=== PATIENT | female | born 1965 | race Caucasian/White ===

== ENCOUNTER 2020-04-19 18:29 | Emergency (ER) | payer OTHER, SELFPAY ==
--- NOTE | ~2020-04-19 | CT_ITS ---
EXAMINATION: CT abdomen pelvis wo con EXAM DATE: 04/19/2020 19:31 INDICATION: Low abdominal pain. TECHNIQUE: Spiral CT of the abdomen and pelvis was performed without contrast. Axial, coronal and s agittal images were reviewed. The dose-length product (DLP) for this examination was 1259.94 mGy-cm. The exposure was tailored according to patient size (auto mA exposure control), and iterative recon struction (ASIR) was used as additional dose reduction technique. There is no prior study for compar cayetano. FINDINGS: There is hepatic steatosis without suspicious focal lesion identified. Spleen, adrenal glan ds, pancreas are unremarkable. There are gallstones within an otherwise unremarkable gallbladder. N o evidence of obstructive biliary disease. Approximately 5 punctate right calyceal stones. No ureter al stones or obstructive nephropathy. The uterus is anteverted and morphologically normal. There are tubal ligation clips. The bladder is unremarkable. There is no retroperitoneal or pelvic lymphaden opathy. The appendix is normal. The stomach and small bowel are unremarkable. There is mild sigmoid colonic diverticulosis. There is no adjacent inflammatory change to suggest diverticulitis. There is colonic fluid, correlate for diarrhea. No free intraperitoneal gas. The heart is normal in size. There are no pericardial or pleural effusions. The lung bases are unremarkable. There are no osteoblastic or osteolytic lesions identified. IMPRESSION: 1. Colonic fluid, correlate for diarrhea. 2. Mild sigmoid diverticulosis. 3. Hepatic steatosis. 4. Punctate right nephrolithiasis. 5. Cholelithiasis. Reviewed, dictated and finalized at location A.
[2020-04-19 18:33] VITALS: BP 108/65; PULSE 136; RESP 18; TEMP 37; O2SAT 96
[2020-04-19 18:46] VITALS: PULSE 134
--- NOTE | 2020-04-19 18:51 | ECG_ITS ---
Measurements Intervals [place] Rate: 128 P: 8 IA: 159 QRS: -20 QRSD: 93 T: 16 QT: 285 QTc: 416 Interpretive Statements SINUS TACHYCARDIA POOR R WAVE PROGRESSION, CONSIDER ANTERIOR INFARCT INFERIOR INFARCT, AGE INDETERMINATE ABNORMAL ECG Electronically Signed On 04-19-2020 20:09:27 CDT by Kumar Chin D.O.
[2020-04-19 19:06] LABS: Basophils Absolute Auto 0.1 K/mm3 (0.0-0.1); Basophils Percent Auto 0.4 % (0.2-1.2); Hematocrit 40.5 % (37.0-47.0); Immature Granulocyte Absolute 0.17 K/mm3 (0.00-0.031); Immature Granulocyte Percent A 1.1 % (0-0.5); Lymphocytes Absolute Auto 0.92 K/mm3 (0.9-3.2); Lymphocytes Percent Auto 5.8 % (18.3-44.2); Mean Corpuscular HGB Conc 34.6 g/dl (32-36); Mean Corpuscular Hemoglobin 31.3 pg (26-34); Mean Corpuscular Volume 90.4 fl (80-100); Mean Platelet Volume 8.7 fl (7.4-10.4); Monocytes Absolute Auto 1.4 K/mm3 (0.1-0.6); Monocytes Percent Auto 8.8 % (2.6-8.5); Neutrophils Absolute Auto 13.4 K/mm3 (1.3-6.7); Neutrophils Percent Auto 83.9 % (45.5-73.1); Platelet Count Result 340 k/mm3 (150-375); Red Blood Count 4.48 M/mm3 (4.2-5.4); Red Cell Distribution Width 12.4 % (11.5-14.5)
--- NOTE | 2020-04-19 19:11 | ED.GENADULT ---
HPI - General Adult General Chief complaint: Unspecified Stated complaint: constipation Time Seen by Provider: 04/19/20 19:02 History of Present Illness HPI narrative: Patient presents with her for lower abdominal pain, recent constipation, and now watery stools from multiple laxatives. She had a fever of 102 at home today. She denies chills and sweats. Initially she had lower abdominal pain, but now has epigastric pain and nausea. She had 3 days of no stool and so took milk of magnesia and castor oil. Now she is having frequent watery bowel movements, but no stool. 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 She does not smoke drink or do drugs. Surgical history history of C-sections. Related Data Allergies Allergy/AdvReac Type Severity Reaction Status Date / Time No Known Allergies Allergy Verified 04/19/20 18:37 Review of Systems Review of Systems: Narrative: CONSTITUTIONAL: Denies fever, chills, or sweats. EYES: Denies visual changes, redness, or discharge. ENT: Denies rhinorrhea, congestion, sore throat, or otalgia. CARDIOVASCULAR: Denies chest pain, palpitations, or edema. RESPIRATORY: Denies cough or dyspnea. GASTROINTESTINAL: She had abdominal pain, and now has nausea, but no vomiting. GENITOURINARY: Denies dysuria or hematuria. SKIN: Denies rash or itching. MUSCULOSKELETAL: Denies back pain, joint pain, or myalgia. NEUROLOGIC: Denies headache, numbness, or weakness. PSYCHIATRIC: Denies anxiety or depression. All systems reviewed & are unremarkable except as noted in HPI and below PMFSH Surgical History Surgical History (Updated 04/19/20 @ 19:14 by Soila Romo MD) History of Social History Social History (Updated 04/19/20 @ 19:14 by Soila Romo MD) Smoking status: Former smoker Alcohol intake: former Substance use: never Gender identity (if verbalized by the patient): Female Exam Narrative: Exam Narrative: GENERAL: Well-appearing, well-nourished, and in no acute distress. HEAD: Normocephalic, atraumatic. EYES: PERRLA and EOMI. ENT: Nares clear, no rhinorrhea or epistaxis. Mucous membranes dry. NECK: Supple. CHEST: Clear to auscultation. No respiratory distress. HEART: Regular rate and rhythm. No murmur heard. Normal peripheral pulses. ABDOMEN: Soft, nontender, nondistended, normal active bowel sounds. EXTREMITIES: Normal range of motion. No edema. SKIN: Warm, dry, no rash. NEURO: No focal deficits. Alert and oriented x3. PSYCH: Normal mood and affect. Course Reevaluation(s) Reevaluation #1: Went in to explain the CAT scan findings to the patient that she has severe dehydration with the diarrhea. She is as of yet been unable to give us a urine sample but still passing liquid stool. I ordered another bag of saline for her, and will reevaluate. She is unaware of the fact that she is testing positive for diabetes. I will also give her some insulin. Date: 04/19/20 Time: 20:36 Reevaluation #2: Told the patient I thought she had a urinary tract infection and was can treat with ciprofloxacin. She agrees that she had urinary frequency before this terrible diarrhea said. She was gestational diabetes and understands a diabetic diet. Rather than start her on metformin which might cause additional diarrhea, a letter have a trial of diet and exercise, and follow-up with the new physician that I assigned her. Date: 04/19/20 Time: 22:13 Vital Signs Vital signs: Vital Signs Temperature 98.6 F 04/19/20 18:33 Pulse Rate 136 H 04/19/20 18:33 Respiratory Rate 18 04/19/20 18:33 Blood Pressure 108/65 04/19/20 18:33 Pulse Oximetry 96 04/19/20 18:33 Temperature 98.6 F 04/19/20 18:33 Pulse Rate 117 H 04/19/20 21:23 Respiratory Rate 18 04/19/20 21:23 Blood Pressure 126/74 04/19/20 21:23 Pulse Oximetry 97 04/19/20 21:23 Medical Decision Making Medical Records Medical records reviewed: Yes I reviewed the patient's medical records. V
[2020-04-19 19:23] LABS: Alanine Aminotransferase 19 U/L (4-35); Albumin Level 3.9 g/dL (3.5-5.1); Alkaline Phosphatase 161 U/L (38-126); Aspartate Amino Transferase 17 U/L (14-36); Blood Urea Nitrogen 28 mg/dL (7-17); Calcium 8.9 mg/dL (8.4-10.2); Carbon Dioxide 22 mmol/L (22-30); Chloride 93 mmol/L (98-107); Estimated CRCL calculation 35 ml/min; Estimated Glomerular Filt Rate 27; Glucose 431 mg/dL (65-105); Lipase 64 U/L (23-300); Potassium 4.2 mmol/L (3.4-5.0); Sodium 126 mmol/L (137-145)
[2020-04-19] MEDS: FAMOTIDINE 20 MG/2 ML VIAL IV PUSH (19:55)
[2020-04-19] MEDS: SODIUM CHLORIDE 0.9% IV 1,000 ML 999 ML IV CONT ×2 (19:55→20:52)
[2020-04-19] MEDS: ONDANSETRON INJ 4 MG/2 ML VIAL IV PUSH (19:55)
[2020-04-19] MEDS: INSULIN HUMAN REGULAR (*BKC) 100 UNITS/ML 10 UNITS IV PUSH (20:53)
[2020-04-19 21:23] VITALS: BP 126/74; PULSE 117; RESP 18; O2SAT 97
[2020-04-19 22:02] LABS: Add Urine Microscopic? YES; Appearance Urine Cloudy (Clear); Bacteria Urine 2+ /hpf; Bilirubin Urine Negative (Negative); Blood Urine 2+ (Negative); Color Urine Yellow (Yellow); Glucose Urine UA 3+ mg/dL (Negative); Ketones Urine Negative (Negative); Leukocyte Esterase Ur 3+ LEU/UL (Negative); Mucus Urine Rare /lpf; Nitrate Urine Negative (Negative); Protein Urine 3+ mg/dL (Negative); RBC Urine 21-50 /hpf (0-2); Specific Grav Ur 1.012 (1.001-1.035); Squamous Epithelial Cell Urine Occasional /hpf (Few); Urobilinogen Urine Negative mg/dL (<2.0); WBC Urine >75 /hpf
[2020-04-19 22:24] LABS: Glucose Point of Care 261 (65-105)
== END 2020-04-19 22:28 | disposition home or self-care (01) ==
PROVIDERS: Emergency Provider Emergency Medicine
DX: N39.0 Urinary tract infection, site not specified (principal); F55.2 Abuse of laxatives; R19.7 Diarrhea, unspecified; E86.0 Dehydration; K76.0 Fatty (change of) liver, not elsewhere classified; N20.0 Calculus of kidney; K80.20 Calculus of gallbladder without cholecystitis without obstruction; Z87.891 Personal history of nicotine dependence; K57.90 Diverticulosis of intestine, part unspecified, without perforation or abscess without bleeding; R00.0 Tachycardia, unspecified; R94.31 Abnormal electrocardiogram [ECG] [EKG]
CPT/HCPCS: 36415; 74176; 80053; 81001; 83690; 85025; 87077; 87086; 87088; 87186; 93005; 96361; 96374; 96375; 99284; J1815; J2405; J7030

== ENCOUNTER 2020-08-05 14:12 | Emergency (ER) | payer OTHER, SELFPAY ==
[2020-08-05 14:17] VITALS: BP 162/88; PULSE 77; RESP 16; TEMP 36.4; O2SAT 98
--- NOTE | 2020-08-05 14:20 | ED.BACK ---
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 Patient states she has a gradual recurrence of right hip and back pain that is mild, worse with motion, better at rest similar to prior episode a couple years ago, and began just yesterday leaning over. No fever, bowel?bladder symptoms, hematuria, frequency/urgency/dysuria, no prior surgeries [], weakness, but she has numbness of the anterior lateral thigh Related Data Home Medications Medication Instructions Recorded Confirmed ergocalciferol (vitamin D2) 08/05/20 [Vitamin D2] glimepiride mg 08/05/20 losartan 08/05/20 metformin mg 08/05/20 rosuvastatin mg 08/05/20 Allergies Allergy/AdvReac Type Severity Reaction Status Date / Time No Known Allergies Allergy Verified 04/19/20 18:37 Review of Systems Review of Systems: Narrative: General/Constitutional: No weight loss,fever Eyes: N0: Redness,discharge Ears/Nose/Throat: No: Epistaxis,ear discharge Respiratory: Denies: Hemoptysis Gastrointestinal: No Vomiting, Bleeding-rectal Skin: No Lumps, eruption Neurologic: No Focal Weakness,Sz Hematologic: Denies: Petechiae/Purpura Psychiatric: No: Suicida ideationl All Other Systems: Reviewed and Negative PMFSH Surgical History Surgical History (Updated 04/19/20 @ 19:14 by Soila Romo MD) History of Social History Social History (Updated 04/19/20 @ 19:14 by Soila Romo MD) Smoking status: Former smoker Alcohol intake: former Substance use: never Gender identity (if verbalized by the patient): Female Comments At time of signature, agree with nursing past medical, surgical, social and family history. There is no relevant family history pertinent to the presenting complaint Exam Narrative: Exam Narrative: General Appearance: Obese/ well nourished, Conjunctiva clear Mouth/Throat: Normal appearing, Supple Respiratory: Airway patent Abdomen: Soft, no CVAT Musculoskeletal: Normal strength (no footdrop, 5/5 : EH L-FHL, gastroc-AT, no saddle weakness) Spine/Back: Paraspinal muscle tender (with mild decreased range of motion; rightt posterior superior iliac crest) Skin: Normal color Neurological: A&O x3, CN II-XII intact, Normal reflexes (symmetric, 2+ KJ, AJ) Psychiatric: Normal mood Course Vital Signs Vital signs: Vital Signs Temperature 97.6 F 08/05/20 14:17 Pulse Rate 77 08/05/20 14:17 Respiratory Rate 16 08/05/20 14:17 Blood Pressure 162/88 H 08/05/20 14:17 Pulse Oximetry 98 08/05/20 14:17 Temperature 97.6 F 08/05/20 14:17 Pulse Rate 77 08/05/20 14:17 Respiratory Rate 16 08/05/20 14:17 Blood Pressure 162/88 H 08/05/20 14:17 Pulse Oximetry 98 08/05/20 14:17 Discharge Plan Discharge Clinical Impression: Bursitis of hip, right Qualifiers: Hip bursitis location: unspecified Qualified Code(s): M70.71 - Other bursitis of hip, right hip Patient Disposition: Home, Self-Care Condition: Stable Instructions: Hip Bursitis (ED) Prescriptions: New acetaminophen-codeine 120-12 mg/5 mL solution 7.5 ml PO HS PRN (Reason: pain) Qty: 118 RF: 0 prednisone 20 mg tablet 60 mg PO DAILY Qty: 15 RF: 0 tramadol 50 mg tablet 50 mg PO Q6H PRN (Reason: pain) Qty: 15 RF: 1 No Action metformin 500 mg tablet RF: 0 glimepiride 1 mg tablet RF: 0 losartan 25 mg tablet RF: 0 ergocalciferol (vitamin D2) [Vitamin D2] 1,250 mcg (50,000 unit) capsule RF: 0 rosuvastatin 5 mg tablet RF: 0 Follow-up/Referrals: Lucas Garcia MD [Primary Care Provider] - Stand Alone Forms: Work/School Release IP
== END 2020-08-05 14:49 | disposition home or self-care (01) ==
PROVIDERS: Emergency Provider Emergency Medicine; PCP Emergency Medicine
DX: M70.71 Other bursitis of hip, right hip (principal); Z87.891 Personal history of nicotine dependence; E78.00 Pure hypercholesterolemia, unspecified; I10 Essential (primary) hypertension; E11.9 Type 2 diabetes mellitus without complications
CPT/HCPCS: 99213; G0463

== ENCOUNTER → 2020-10-22 12:32 | Outpatient (CLI) | payer OTHER, SELFPAY ==
--- NOTE | ~2020-10-22 | DEXA_ITS ---
Bone Density Report Name: Lana Martinez Age: 55 Sex: Female Ethnicity: White Date of : 1965 Indication: postmenopausal; screening for osteoporosis; height loss; history of glucocorticoids; Referring Provider: COSMO PITTS Study: Bone densitometry was performed. Exam Date: October 22, 2020 Accession number: [id number] Bone Density: Region BMD T-score Z-score Classification AP Spine (L1-L4) 1.271 2.0 3.2 Normal Femoral Neck (Left) 0.838 -0.1 1.0 Normal Total Hip (Left) 1.092 1.2 2.0 Normal Femoral Neck (Right) 0.934 0.8 1.9 Normal Total Hip (Right) 1.152 1.7 2.5 Normal Total Hip Mean 1.122 1.5 2.3 Normal World Health Organization criteria for BMD impression classify patients as: Normal (T-score at or above -1.0), Osteopenia (T-score between -1.0 and -2.5), or Osteoporosis (T-score at or below -2.5). 10-year Fracture Risk: FRAX not reported because: All T-scores for Spine Total, Hip Total, Femoral Neck at or above -1.0 Clinical Information Provided by Patient: Has taken Glucocorticoids Has used the following medications: Vitamin D, Calcium Patient maximum height was 64 Menopause Age: 52 No regular weight bearing exercise Drinks caffeinated beverages Onset of menses at age 10 Number of children 2 Missed period for more than 6 months in a row Impression: The patient has normal bone mass. The patient has risk factors, including: history of glucocorticoid therapy. Discussion: BONE DENSITY IS ABOVE THE MINIMUM DESIRABLE LEVEL AT ALL SKELETAL SITES TESTED. This patient?s bone mineral density is above the minimum desirable level (T-score -1.0 or better) at all sites measured. The patient should follow a healthful lifestyle (good nutrition with adequate calcium and vitamin D, and appropriate weight-bearing exercise). Follow-Up: Consider repeating this study in 5 years or sooner if there is some new clinical indication. Reported by: VERÓNICA on 10/22/2020 1:23:00 PM. Reviewed, dictated and finalized at location [facility]
--- NOTE | ~2020-10-22 | MM_ITS ---
EXAMINATION: MM screening geri BI w berenice HISTORY: Screening TECHNIQUE: Craniocaudal and mediolateral oblique 3-D tomosynthesis images were obtained and synthetic 2-D images were generated. CAD analysis was submitted and interpreted. COMPARISON: No prior mammogram is available for comparison at this institution. BREAST PARENCHYMAL COMPOSITION: There are scattered areas of fibroglandular density. FINDINGS: There are clustered nonspecific calcifications in the upper outer quadrant of the right franny ast. There is focal asymmetry in the upper outer quadrant of the left breast. There are benign bilate ral breast calcifications. IMPRESSION: 1. Nonspecific right breast calcifications and left breast asymmetry. 2. Comparison to a previous outside mammograms recommended. BI-RADS Category 0: Incomplete: Needs additional imaging evaluation. Reviewed, dictated and finalized at location A. E PICKER
== END ==
PROVIDERS: PCP Emergency Medicine; Visit Provider Emergency Medicine
DX: Z12.31 Encounter for screening mammogram for malignant neoplasm of breast (principal); Z78.0 Asymptomatic menopausal state; R92.8 Other abnormal and inconclusive findings on diagnostic imaging of breast
CPT/HCPCS: 77063; 77067; 77080

== ENCOUNTER → 2020-12-23 14:16 | Outpatient (CLI) | payer OTHER, SELFPAY ==
--- NOTE | ~2020-12-23 | MMUS_ITS ---
EXAMINATION: MM diagnostic geri BI w berenice, US breast BI complete HISTORY: Nonspecific right breast calcifications and left breast mammographic asymmetry reported on 01/02/2020 bilateral digital screening mammogram TECHNIQUE: Additional bilateral ML and spot bilateral 3-D tomosynthesis images were performed and syn thetic 2-D images were generated. Magnification views of the right breast. Magnification views of rig ht breast. CAD analysis was submitted and interpreted. High resolution complete bilateral breast ultr asound was performed. COMPARISON: 11/01/2020 bilateral digital screening mammogram FINDINGS: MAMMOGRAPHIC FINDINGS: There are scattered bilateral benign calcifications including some benign grouped microcalcifications as well as benign solitary microcalcifications. No malignant calcifications are evident. There are scattered circumscribed largely subcentimeter nodular densities; bilateral ultrasound exami nation was performed.. ULTRASOUND: Right breast: 12:00 5 cm from nipple: 3.6 mm rounded sonolucency without posterior enhancement; consider ultrasound -guided needle aspiration attempt, with ultrasound-guided biopsy immediately thereafter if aspiration attempt is unsuccessful. 1:00 6 cm from nipple: Superficial subcutaneous 6 x 12 mm hypoechoic solid or complicated cystic lesi on with some through transmission; this has benign features. 3:00 7 cm from nipple: Parallel circumscribed hypoechoic 3 x 6 x 9 mm lesion without internal vascula rity or suspicious shadowing. 6:00 5 cm from nipple: 2 x 3 x 3.7 mm sonolucent lesion with posterior enhancement 8:00 9.5 cm from nipple: There is an approximately 6.5 x 9.4 x 6.7 mm mass with calcifications and as sociated shadowing, corresponding to a benign appearing calcified mammographic lesion, likely a parti ally calcified fibroadenoma. 11:00 5 cm from nipple: Small parallel 2.6 x 4 0.5 mg hypoechoic lesion without through transmission or internal vascularity, likely benign Circumscribed lobular hypoechoic solid approximately 4 x 6.5 x 11 mm lesion without internal vascular ity or suspicious shadowing, likely benign 11:00 3 cm from nipple: 3.9 x 5.6 x 3.9 mm mildly irregular hypoechoic lesion without internal vascul arity but with some posterior shadowing. Ultrasound-guided biopsy is recommended. Left breast: 2:00 8 cm from nipple: 2 x 3.5 mm probable small cyst 3:00 11 cm from nipple: Rounded 2.8 x 3.1 mm hypoechoic lesion 6:00 subareolar area: Bilobed 3 x 6.2 mm sonolucency 9:00 8 cm from nipple: Heavily calcified approximately 8 millimeter lesion corresponding to a benign dense left breast calcification, likely a heavily calcified fibroadenoma 9:00 7 cm from nipple: Parallel circumscribed 5.7 x 5.4 x 13 mm hypoechoic solid lesion without inter nal vascularity or suspicious shadowing IMPRESSION: 1. 3.9 x 5.6 x 3.9 mm mildly irregular hypoechoic lesion with some posterior shadowing at right breas t 11:00 position 3 cm from nipple; ultrasound-guided biopsy is recommended. 2. Recommend attempted ultrasound-guided aspiration and, if unsuccessful, ultrasound-guided biopsy bi opsy of right breast 3.6 mm 12:00 lesion 5 cm from nipple BI-RADS category 4, suspicious findings. Felicity, Mill Roll Rewinder for Dr. Garcia was notified by telephone by Dr. Gonzalez of the findings and the biopsy recommendations on 01/02/2021 at 1558 hours Reviewed, dictated and finalized at location A. AINABILITY EXECUTIVE DIRECTOR IMPRESSION: 1. 3.9 x 5.6 x 3.9 mm mildly irregular hypoechoic lesion with some posterior sh adowing at right breast 11:00 position 3 cm from nipple; ultrasound-guided biop sy is recommended. 2. Recommend attempted ultrasound-guided aspiration and, if unsuccessful, ultra sound-guided biopsy biopsy of right breast 3.
== END ==
PROVIDERS: PCP Emergency Medicine; Visit Provider Emergency Medicine
DX: R92.2 Inconclusive mammogram (principal); R92.8 Other abnormal and inconclusive findings on diagnostic imaging of breast
CPT/HCPCS: 76641; 77062; 77066; G0279

== ENCOUNTER 2021-01-08 09:05 | Outpatient (CLI) | payer OTHER, SELFPAY ==
--- NOTE | ~2021-01-08 | MMUS_ITS ---
EXAMINATION: US breast biopsy RT w image, MM post biopsy invasive RT, US breast cyst asp RT DATE: 01/08/2021 11:03 (accession [id number]), 01/08/2021 10:57 (accession [id number]), 12/16 11:03 (accession [id number]) INDICATION: Right breast cysts of the 12:00 location 5 cm from the nipple and right breast mass at th e 11:00 location 3 cm from the nipple. Ultrasound-guided core biopsy is requested to evaluate for mal ignancy. TECHNIQUE AND FINDINGS: The risks and potential benefits of the procedure were discussed with the patient including bleeding and infection. A time out was performed. The skin of the right breast was prepared and draped in usua l sterile fashion. 1% lidocaine was used for superficial anesthesia. 1% lidocaine with epinephrine wa s used for deep anesthesia. Attention was first directed towards the round anechoic mass at the 12:00 location 5 cm from the nipp le. After local anesthetic was administered, a 20-gauge needle was advanced into the lesion. The lesi on immediately disappeared after the margin was reached, consistent with a cyst. Attention was then t urned towards the mass at the 11:00 location 3 cm from the nipple. A vacuum-assisted biopsy gun needl e was advanced through to the outer edge of the region of interest from a lateral approach utilizing sonographic guidance. A total of three tissue core samples were obtained through the lesion. A tissue marker clip was then placed at the biopsy site. Hemostasis was achieved. A sterile bandage was appli ed. The patient tolerated procedure well and there was no evidence of immediate complication. The patient was given verbal instructions to return to the Emergency Department in the event of severe breast pa in or rapid breast enlargement. A two view right breast mammogram was obtained to document tissue mar ker clip placement. IMPRESSION: 1. Successful ultrasound-guided vacuum-assisted biopsy of right breast mass with tissue marker placem ent. 2. Successful ultrasound-guided right breast cyst aspiration. Reviewed, dictated and finalized at location A. TENANCE TRUCK DRIVER IMPRESSION: 1. Successful ultrasound-guided vacuum-assisted biopsy of right breast mass wit h tissue marker placement. 2. Successful ultrasound-guided right breast cyst aspiration. IMPRESSION: 1. Successful ultrasound-guided vacuum-assisted biopsy of right breast mass wit h tissue marker placement. 2. Successful ultrasound-guided right breast cyst aspiration.
== END 2021-01-08 09:06 | disposition home or self-care (01) ==
PROVIDERS: PCP Emergency Medicine; Visit Provider Emergency Medicine
DX: N60.31 Fibrosclerosis of right breast (principal); D24.1 Benign neoplasm of right breast
CPT/HCPCS: 19000; 19083; 88305; 88342

== ENCOUNTER → 2021-02-27 10:28 | Outpatient (CLI) | payer OTHER, SELFPAY ==
--- NOTE | ~2021-02-27 | US_ITS ---
EXAMINATION: US soft tissue abdomen INDICATION: Abdominal bulging, possible hernia TECHNIQUE: Targeted high-resolution ultrasound is performed in the area of clinical concern. COMPARISON: CT, 04/19/2020 FINDINGS: No definite hernia is identified in the area of clinical concern. No suspicious mass is baldo ntified. IMPRESSION: 1. No definite hernia detected by ultrasound. Reviewed, dictated and finalized at location B.
== END ==
PROVIDERS: PCP Emergency Medicine; Visit Provider Emergency Medicine
DX: K43.9 Ventral hernia without obstruction or gangrene (principal)
CPT/HCPCS: 76705

== ENCOUNTER → 2022-09-21 13:43 | Outpatient (CLI) | payer OTHER, SELFPAY ==
--- NOTE | ~2022-09-21 | US_ITS ---
EXAMINATION: US renal BI DATE: 09/21/2022 14:37 INDICATION: Right flank pain. Low kidney function. TECHNIQUE: Multiple ultrasound grayscale images of the kidneys were obtained. COMPARISON: CT dated 04/19/20 FINDINGS: The right kidney measures 10.0 x 5.3 x 5.3 cm. The left kidney measures 10.4 x 5.8 x 5.4 cm. The kidn eys demonstrate normal echogenicity. There is mild bilateral anechoic renal cysts, the largest on the right measuring 1.8 cm maximal diameter and 9 mm in the left kidney. There is no hydronephrosis in e ither kidney. No stones identified. The bladder is normal. IMPRESSION: 1. Small bilateral renal cyst. Otherwise normal kidneys without hydronephrosis. 2. Tiny bilateral renal stones evident on prior CT are not appreciated in the current study likely du e to their small size. Reviewed, dictated and finalized at location A. TAL MEDIA MANAGER IMPRESSION: 1. Small bilateral renal cyst. Otherwise normal kidneys without hydronephrosis . 2. Tiny bilateral renal stones evident on prior CT are not appreciated in the c urrent study likely due to their small size.
== END ==
PROVIDERS: PCP Emergency Medicine; Visit Provider Emergency Medicine
DX: R80.9 Proteinuria, unspecified (principal); N28.1 Cyst of kidney, acquired; N20.0 Calculus of kidney
CPT/HCPCS: 76775

== ENCOUNTER → 2022-11-27 11:32 | Outpatient (CLI) | payer OTHER, SELFPAY ==
--- NOTE | ~2022-11-27 | MM_ITS ---
EXAMINATION: MM screening geri BI w berenice HISTORY: Screening mammogram TECHNIQUE: Craniocaudal and mediolateral oblique 3-D tomosynthesis images were obtained and synthetic 2-D images were generated. CAD analysis was submitted and interpreted. COMPARISON: 12/23/2020, 10/22/2020 BREAST PARENCHYMAL COMPOSITION: There are scattered areas of fibroglandular density. FINDINGS: RIGHT BREAST: There is a mass in the middle third of the lower-outer breast. LEFT BREAST: No suspicious mass, calcification, or architectural distortion are identified to suggest malignancy. There has been no suspicious interval change. IMPRESSION: 1. Right breast mass 2. Additional mammographic views and possible breast ultrasound are recommended. BI-RADS Category 0: Incomplete: Needs additional imaging evaluation. Reviewed, dictated and finalized at location A. MANAGEMENT SUPERVISOR IMPRESSION: 1. Right breast mass 2. Additional mammographic views and possible breast ultrasound are recommended . BI-RADS Category 0: Incomplete: Needs additional imaging evaluation.
== END ==
PROVIDERS: PCP Emergency Medicine; Visit Provider Emergency Medicine
DX: Z12.31 Encounter for screening mammogram for malignant neoplasm of breast (principal); R92.8 Other abnormal and inconclusive findings on diagnostic imaging of breast
CPT/HCPCS: 77063; 77067

== ENCOUNTER 2023-07-02 03:19 | Inpatient (IN) | payer OTHER, SELFPAY ==
[2023-07-02] VITALS (12 sets, daily range): BP systolic 104–166; BP diastolic 58–90; PULSE 18–103; RESP 12–21; TEMP 35.9–36.7; O2SAT 95–100
--- NOTE | ~2023-07-02 | US_ITS ---
EXAMINATION: US abdomen limited DATE: 07/03/2023 10:45 INDICATION: Cholecystitis. TECHNIQUE: Multiple grayscale and Doppler ultrasound images of the abdomen were obtained. COMPARISON: CT abdomen and pelvis 07/02/2023 FINDINGS: The visualized portion of the head of the pancreas is normal. Note that ultrasound has poor sensitivity for pancreatitis. The liver is normal without focal lesion. The gallbladder is distended and contains gallstones. Gallbladder wall thickening is noted. There is no sonographic Arauz sign. The common duct is dilated to 8 mm. IMPRESSION: 1. Mildly dilated common duct. 2. Distended gallbladder with gallstones and gallbladder wall thickening, but no sonographic Arauz s ign. These findings are consistent with acute cholecystitis. Reviewed, dictated and finalized at location A. IMPRESSION: 1. Mildly dilated common duct. 2. Distended gallbladder with gallstones and gallbladder wall thickening, but n o sonographic Arauz sign. These findings are consistent with acute cholecystit is.
--- NOTE | ~2023-07-02 | CT_ITS ---
EXAMINATION: CT abdomen pelvis w con DATE: 07/02/2023 05:58 INDICATION: Abdominal pain. Elevated lipase. Nausea and vomiting. TECHNIQUE: Computed tomography (CT) of the abdomen and pelvis was performed with 100 mL Omnipaque 350 intravenous contrast. Automated exposure control and iterative reconstruction technique were employe d. The dose-length product was 1342.37 mGy-cm. COMPARISON: CT abdomen and pelvis 04/19/20 FINDINGS: The visualized portions of the lung bases demonstrate minimal atelectasis. No pleural effus ion. The heart size is normal. No pericardial effusion. The liver is normal. The gallbladder is diste nded and contains gallstones. Gallbladder wall thickening is noted. There is fat stranding around the gallbladder. These findings are consistent with acute cholecystitis. Calcifications in the spleen ar e consistent with old granulomatous disease. There is fat stranding around the pancreas, consistent w ith acute interstitial pancreatitis. The adrenal glands are normal. There is cortical thinning of the kidneys. There are cysts in the kidneys measuring up to 1.9 cm on the right. There is diverticulosis of the colon without evidence of diverticulitis. There are no dilated loops of bowel. The appendix i s normal. Aortic atherosclerosis is noted. There are bilateral tubal ligation clips. There is no free intraperitoneal fluid. There is a small focus of gas in the bladder lumen. There are no pathological ly enlarged lymph nodes. There is mild thoracic and lumbar spondylosis. IMPRESSION: 1. Acute interstitial pancreatitis. 2. Acute cholecystitis. Reviewed, dictated and finalized at location E.
[2023-07-02 03:34] LABS: Basophils Absolute Auto 0.1 K/mm3 (0.0-0.1); Basophils Percent Auto 0.5 % (0.2-1.2); Eosinophils Absolute Auto 0.1 K/mm3 (0-0.3); Eosinophils Percent Auto 0.6 % (0-4.4); Hematocrit 39.8 % (37.0-47.0); Hemoglobin 12.9 g/dL (12.0-15.0); Immature Granulocyte Absolute 0.05 K/mm3 (0.00-0.031); Immature Granulocyte Percent A 0.5 % (0-0.5); Lymphocytes Absolute Auto 0.99 K/mm3 (0.9-3.2); Lymphocytes Percent Auto 9.4 % (18.3-44.2); Mean Corpuscular HGB Conc 32.4 g/dl (32-36); Mean Corpuscular Hemoglobin 31.5 pg (26-34); Mean Corpuscular Volume 97.3 fl (80-100); Mean Platelet Volume 8.4 fl (7.4-10.4); Monocytes Absolute Auto 0.5 K/mm3 (0.1-0.6); Monocytes Percent Auto 4.6 % (2.6-8.5); Neutrophils Absolute Auto 8.9 K/mm3 (1.3-6.7); Neutrophils Percent Auto 84.4 % (45.5-73.1); Platelet Count Result 290 k/mm3 (150-375); Red Blood Count 4.09 M/mm3 (4.2-5.4); Red Cell Distribution Width 13.4 % (11.5-14.5); White Blood Count 10.5 K/mm3 (4.5-10.0)
[2023-07-02 04:04] LABS: Alanine Aminotransferase 334 U/L (6-35); Albumin Level 4.1 g/dL (3.5-5.1); Alkaline Phosphatase 134 U/L (38-126); Anion Gap 6 mmol/L (8-16); Aspartate Amino Transferase 593 U/L (14-36); Bilirubin,Total 1.5 mg/dL (0.2-1.3); Blood Urea Nitrogen 30 mg/dL (7-17); Calcium 9.4 mg/dL (8.4-10.2); Carbon Dioxide 27 mmol/L (22-30); Chloride 102 mmol/L (98-107); Estimated CRCL calculation 42 ml/min; Estimated Glomerular Filt Rate 36; Glucose 248 mg/dL (65-110); Potassium 3.9 mmol/L (3.4-5.0); Sodium 135 mmol/L (137-145)
[2023-07-02 04:53] LABS: Lipase > 40000 U/L (23-300)
[2023-07-02] MEDS: SODIUM CHLORIDE 0.9% IV 1,000 ML 999 ML IV CONT (05:30)
[2023-07-02] MEDS: ONDANSETRON INJ 4 MG/2 ML VIAL IV PUSH (05:31)
[2023-07-02] MEDS: MORPHINE SULFATE (*CRX) 4 MG/ML INJ IV PUSH ×2 (05:32→09:06)
--- NOTE | 2023-07-02 06:43 | ED.GENADULT ---
HPI - General Adult General Chief complaint: Abdominal Pain Stated complaint: abd/back pain Time Seen by Provider: 07/02/23 06:35 History of Present Illness HPI narrative: Patient is a 57-year-old female who presents the emergency department with chief complaint of epigastric pain. Patient reports started in pain in the epigastrium today reports it radiates to her back patient states that for some time she had episodes that she thought was heartburn worse with eating and reports that tonight the pain started and has not improved by then the patient's had multiple episodes of nausea and vomiting unable to keep any fluids down. Related Data Home Medications Medication Instructions Recorded Confirmed ergocalciferol (vitamin D2) 1,250 08/05/20 mcg (50,000 unit) capsule (Vitamin D2) glimepiride 1 mg tablet mg 08/05/20 losartan 25 mg tablet 08/05/20 metformin 500 mg tablet mg 08/05/20 rosuvastatin 5 mg tablet mg 08/05/20 aspirin 81 mg chewable tablet 81 mg PO DAILY 03/10/21 Allergies Allergy/AdvReac Type Severity Reaction Status Date / Time No Known Allergies Allergy Verified 03/16/21 14:33 Review of Systems Review of Systems: A 10 system review of systems was completed on the patient and is negative except for what is stated in the HPI. Nursing and ancillary documentation was reviewed. 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 HEAD: Normocephalic, atraumatic. EYES: PERRLA and EOMI. ENT: Nares clear, no rhinorrhea or epistaxis. Mucous membranes moist. NECK: Supple. CHEST: Clear to auscultation. No respiratory distress. HEART: Regular rate and rhythm. No murmur heard. Normal peripheral pulses. ABDOMEN: Soft, tenderness to palpation in the epigastric region, nondistended, normal active bowel sounds. EXTREMITIES: Normal range of motion. No edema. SKIN: Warm, dry, no rash. NEURO: No focal deficits. Alert and oriented x3. PSYCH: Normal mood and affect. Course Vital Signs Vital signs: Vital Signs Temperature 36.6 C 07/02/23 03:21 Pulse Rate 80 07/02/23 03:21 Respiratory Rate 20 07/02/23 03:21 Blood Pressure 166/90 H 07/02/23 03:21 Pulse Oximetry 100 07/02/23 03:21 Oxygen Delivery Room Air 07/02/23 03:21 Temperature 36.6 C 07/02/23 04:56 Pulse Rate 96 07/02/23 06:04 Respiratory Rate 13 07/02/23 06:04 Blood Pressure 140/62 07/02/23 05:31 Pulse Oximetry 97 07/02/23 06:04 Oxygen Delivery Room Air 07/02/23 03:21 Medical Decision Making [facility] Narrative Medical decision making narrative: Differential diagnosis includes intra-abdominal infection, cholecystitis, pancreatitis, Laboratory studies were obtained and the patient showed a lipase of greater than 40,000 Liver enzymes are elevated with a bilirubin of 1.5 AST of [address] abdomen pelvis showed evidence of acute pancreatitis with acute cholecystitis Case was discussed with Dr. Fang of
[2023-07-02 07:02] LABS: Appearance Urine Cloudy (Clear); Bacteria Urine 4+ /hpf; Bilirubin Urine Negative (Negative); Blood Urine Trace (Negative); Color Urine Yellow (Yellow); Glucose Urine UA Trace mg/dL (Negative); Ketones Urine Negative (Negative); Leukocyte Esterase Ur 2+ LEU/UL (Negative); Nitrate Urine Negative (Negative); Non Pathogenic Casts 0-2; Protein Urine 2+ mg/dL (Negative); RBC Urine 0-2 /hpf (0-2); Specific Grav Ur 1.021 (1.001-1.035); Squamous Epithelial Cell Urine None seen /hpf (Few); WBC Urine >100 /hpf; pH Urine 7.5 (5.0-9.0)
--- NOTE | 2023-07-02 07:03 | ECG_ITS ---
Measurements Intervals [place] Rate: 83 P: 33 NH: 164 QRS: -14 QRSD: 98 T: 12 QT: 351 QTc: 414 Interpretive Statements SINUS RHYTHM LOW QRS VOLTAGE IN PRECORDIAL LEADS [QRS DEFLECTION < 1.0 mV IN CHEST LEADS] EVIDENCE OF PREVIOUS INFERIOR AND ANTERIOR INFARCTION ABNORMAL ECG COMPARED TO ECG 04/19/2020 18:55:38 HEART RATE IS REDUCED, NO OTHER SIGNIFICANT CHANGE Electronically Signed On 07-02-2023 7:36:37 CDT by Russ Castillo M.D.
[2023-07-02 07:16] LABS: Add Urine Microscopic? YES
--- NOTE | 2023-07-02 08:34 | PM.IMHP ---
H&P: HPI History of Present Illness Date/Time: 07/02/23 08:34 Chief Complaint: Abdomen pain Narrative: Patient is a 57-year-old female with a history of diabetes, hypertension, hyperlipidemia, CKD stage 3 presents the emergency department with chief complaint of epigastric pain.? Patient started have abdomen pain in the night, locating in epigastric region radiating to the back. Patient has nausea vomiting. Patient denies fever, chills, chest pain, shortness of breath headache, focal weakness, dysuria. Patient came to ED for evaluation, in the ED, patient found have elevated liver enzymes with a bilirubin of 1.5 AST of 593 ALT of 334, and CT abdomen pelvis showed evidence of acute pancreatitis, acute cholecystitis with gallstones. Leukocytosis 10,500 with left shift, UA shows pyuria. Patient denies chest pain, shortness breast, palpitation, headache, focal weakness, dysuria. ER physician consulted Dr. Oshea of GI Dr. Lacey pending surgery and Dr. Vale and the patient is admitted on the hospitalist service Review of Systems Review of Systems: ROS negative except above PMFSH Past Medical History Medical History Diabetes High blood pressure High cholesterol Surgical History Surgical History History of x2 History of eye surgery x2 History of tubal ligation x2 Family History Family History Mother Diabetes mellitus Grandparent Diabetes mellitus Social History Social History Smoking packs per day: 1 Smoking cigarettes per day: 20.0 Years smoked: 20 Smoking pack-years: 20.00 Smoking status: Former smoker Alcohol intake: former Substance use: never Lack of Transportation: No Lack of Food: Never True Current Housing: I Have Housing Concerned About Future Housing: No Difficulty Paying Gas/Electric Bills: No Difficulty Paying for Meds: No Currently Unemployed: No Education: High School Diploma/GED Difficulty w/ Childcare or Family Care: No Living arrangements: with family Occupation/Education: occupation 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 Gender identity (if verbalized by the patient): Female Spiritual care concerns: No Meds Home Medications and Allergies Home Medications Medication Instructions Recorded Confirmed Type ergocalciferol (vitamin D2) 1,250 1,250 mcg PO DAILY 08/05/20 07/02/23 History mcg (50,000 unit) capsule (Vitamin D2) glimepiride 1 mg tablet 1 mg PO DAILY 08/05/20 07/02/23 History losartan 25 mg tablet 25 mg PO DAILY 08/05/20 07/02/23 History metformin 500 mg tablet 500 mg PO BID 08/05/20 07/02/23 History rosuvastatin 5 mg tablet 5 mg PO DAILY 08/05/20 07/02/23 History aspirin 81 mg chewable tablet 81 mg PO DAILY 03/10/21 07/02/23 History Allergies Allergy/AdvReac Type Severity Reaction Status Date / Time No Known Allergies Allergy Verified 03/16/21 14:33 Vital Signs Vital Signs - 24 hr 07/02/23 03:21 07/02/23 04:56 07/02/23 05:18 Temperature 97.8 F 98 F Pulse Rate 80 87 103 H Respiratory Rate 20 12 15 Blood Pressure 166/90 H Pulse Oximetry 100 100 95 Oxygen Delivery Room Air 07/02/23 05:30 07/02/23 05:31 07/02/23 06:04 Temperature Pulse Rate 90 95 96 Respiratory Rate 21 H 17 13 Blood Pressure 140/62 Pulse Oximetry 100 100 97 Oxygen Delivery 07/02/23 07:14 07/02/23 08:11 Temperature Pulse Rate 90 93 Respiratory Rate 17 18 Blood Pressure 135/68 132/58 L Pulse Oximetry 98 98 Oxygen Delivery Exam Narrative: GENERAL: Pleasant, in no acute distress. Well-nourished. - EYES: EOMI. Anicteric. - HENT: Moist mucous membranes. - LUNGS: Clear to auscultation bilaterally, no wheezing, rhonchi, or rales
--- NOTE | 2023-07-02 08:58 | ADMGEN ---
This patient, Lana Martinez, was admitted to Medical Room 344-01. Patient/family oriented to hospital policies and general routines including ID bracelet, bed and alarms, visiting hours, pain management, procedures, bathroom and other care routines, personal items, smoking policy, room service/diet, and visiting hours. Information on how to activate the Rapid Response Team has been discussed. Patient/Family are encouraged to report perceived risks to care and to ask questions if they do not understand what they are told or what they should do.
[2023-07-02] MEDS: SODIUM CHLORIDE 0.9% IV 1,000 ML 125 ML IV CONT ×2 (09:06→18:22)
[2023-07-02] MEDS: PANTOPRAZOLE SODIUM IV 40 MG VIAL IV PUSH (09:07)
[2023-07-02] MEDS: PIPERACILLN/TAZ 3.375GM/NS50ML 3.375 GM/50 ML BAG IVPB ×3 (09:07→20:51)
--- NOTE | 2023-07-02 09:58 | WPDGICN ---
Assessment and Plan Assessment and plan (1) Gallstone: Code(s): K80.20 - Calculus of gallbladder without cholecystitis without obstruction Status: Acute (2) Acute pancreatitis: Code(s): K85.90 - Acute pancreatitis without necrosis or infection, unspecified Status: Acute Assessment and Plan: Patient admitted with elevated lipase abdominal pain consistent with pancreatitis. Appears to be on the basis of gallstones. Imaging studies confirm acute cholecystitis as well. Plan for patient be NPO with pain control. Surgical evaluation for eventual cholecystectomy. Continue to monitor labs defer diet until improvement has been identified. Will follow with you during this hospital stay with continued supportive care for. (3) Acute cholecystitis: Code(s): K81.0 - Acute cholecystitis Status: Acute Assessment and Plan: Acute cholecystitis appears be on the basis of cholelithiasis. Surgical consult pending. Continue supportive care for now anticipate cholecystectomy appropriate. (4) Uncontrolled type 2 diabetes mellitus: Status: Acute (5) Obesity (BMI 30.0-34.9): Code(s): E66.9 - Obesity, unspecified Status: Acute GI Consult Note Consult date/time: 07/02/23 09:58 Reason for consult: gallstone pancreatitis HPI: Lana Martinez is a 57 year old female presented to the emergency room last evening with rather significant upper abdominal pain radiating straight through to her back. She felt significant pressure in this area. Pain was rather intense in nature. Upon presenting to the emergency room laboratory testing revealed elevated LFTs imaging studies reveal evidence of gallstone, pancreatitis and acute cholecystitis. Patient currently has been medication is comfortable lying in bed. She did not previously know that she had gallstones. Past medical history is significant for diabetes mellitus. Family history noncontributory. Review of Systems Review of Systems: Physical exam reveals patient to be alert. Vital signs stable. HEENT exam is unremarkable. Patient is anicteric. Lungs are clear to auscultation and percussion. Heart is without murmur or extra sounds. Abdomen is obese. Bowel sounds present soft mild upper abdominal discomfort at this time. No organomegaly evident. [facility] Past Medical History Medical History Diabetes High blood pressure High cholesterol Surgical History Surgical History History of x2 History of eye surgery x2 History of tubal ligation x2 Family History Family History Mother Diabetes mellitus Grandparent Diabetes mellitus Social History Social History Smoking packs per day: 1 Smoking cigarettes per day: 20.0 Years smoked: 20 Smoking pack-years: 20.00 Smoking status: Former smoker Alcohol intake: former Substance use: never Lack of Transportation: No Lack of Food: Never True Current Housing: I Have Housing Concerned About Future Housing: No Difficulty Paying Gas/Electric Bills: No Difficulty Paying for Meds: No Currently Unemployed: No Education: High School Diploma/GED Difficulty w/ Childcare or Family Care: No Living arrangements: with family Occupation/Education: occupation 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
[2023-07-02 12:08] LABS: Glucose Point of Care 170 mg/dl (65-105)
[2023-07-02 12:16] LABS: Alanine Aminotransferase 328 U/L (6-35); Albumin Level 4.4 g/dL (3.5-5.1); Alkaline Phosphatase 140 U/L (38-126); Aspartate Amino Transferase 541 U/L (14-36); Bilirubin,Total 1.3 mg/dL (0.2-1.3)
[2023-07-02] MEDS: HEPARIN SODIUM 5,000 UNITS/ML VIAL 5000 UNITS SUB-Q ×2 (14:10→20:53)
[2023-07-02 18:54] LABS: Glucose Point of Care 97 mg/dl (65-105)
[2023-07-02 23:52] LABS: Glucose Point of Care 94 mg/dl (65-105)
[2023-07-03] MEDS: PIPERACILLN/TAZ 3.375GM/NS50ML 3.375 GM/50 ML BAG IVPB ×4 (03:32→20:52)
[2023-07-03 04:57] VITALS: BP 127/60; PULSE 73; RESP 20; TEMP 36.7; O2SAT 100
[2023-07-03 05:11] LABS: Glucose Point of Care 84 mg/dl (65-105)
[2023-07-03] MEDS: HEPARIN SODIUM 5,000 UNITS/ML VIAL 5000 UNITS SUB-Q ×3 (05:32→22:32)
[2023-07-03] MEDS: MORPHINE SULFATE (*CRX) 4 MG/ML INJ IV PUSH (05:35)
[2023-07-03 06:00] LABS: Basophils Percent Auto 0.6 % (0.2-1.2); Eosinophils Absolute Auto 0.1 K/mm3 (0-0.3); Hematocrit 35.3 % (37.0-47.0); Hemoglobin 11.1 g/dL (12.0-15.0); Immature Granulocyte Absolute 0.04 K/mm3 (0.00-0.031); Immature Granulocyte Percent A 0.6 % (0-0.5); Lymphocytes Absolute Auto 1.11 K/mm3 (0.9-3.2); Mean Corpuscular HGB Conc 31.4 g/dl (32-36); Mean Corpuscular Hemoglobin 31.4 pg (26-34); Mean Corpuscular Volume 99.7 fl (80-100); Mean Platelet Volume 8.6 fl (7.4-10.4); Monocytes Absolute Auto 0.7 K/mm3 (0.1-0.6); Monocytes Percent Auto 9.9 % (2.6-8.5); Neutrophils Percent Auto 71.9 % (45.5-73.1); Platelet Count Result 233 k/mm3 (150-375); Red Blood Count 3.54 M/mm3 (4.2-5.4); Red Cell Distribution Width 14.1 % (11.5-14.5)
[2023-07-03 06:28] LABS: Alanine Aminotransferase 312 U/L (6-35); Albumin Level 3.5 g/dL (3.5-5.1); Alkaline Phosphatase 140 U/L (38-126); Anion Gap 10 mmol/L (8-16); Aspartate Amino Transferase 178 U/L (14-36); Bilirubin,Total 1.2 mg/dL (0.2-1.3); Blood Urea Nitrogen 22 mg/dL (7-17); Calcium 8.5 mg/dL (8.4-10.2); Carbon Dioxide 28 mmol/L (22-30); Chloride 101 mmol/L (98-107); Estimated CRCL calculation 44 ml/min; Estimated Glomerular Filt Rate 39; Glucose 88 mg/dL (65-110); Potassium 3.8 mmol/L (3.4-5.0); Sodium 139 mmol/L (137-145)
[2023-07-03] MEDS: SODIUM CHLORIDE 0.9% IV 1,000 ML 125 ML IV CONT ×3 (08:53→20:54)
[2023-07-03] MEDS: PANTOPRAZOLE SODIUM IV 40 MG VIAL IV PUSH (08:58)
--- NOTE | 2023-07-03 10:18 | PM.IMPN ---
Progress Note: A&P Assessment and Plan (1) Acute pancreatitis: Code(s): K85.90 - Acute pancreatitis without necrosis or infection, unspecified Status: Acute (2) Acute cholecystitis: Code(s): K81.0 - Acute cholecystitis Status: Acute (3) Gallstone: Code(s): K80.20 - Calculus of gallbladder without cholecystitis without obstruction Status: Acute (4) Elevated liver enzymes: Code(s): R74.8 - Abnormal levels of other serum enzymes Status: Acute (5) Acute cholecystitis with acute cholangitis: Code(s): K81.0 - Acute cholecystitis; K83.09 - Other cholangitis Status: Acute (6) Uncontrolled type 2 diabetes mellitus: Status: Acute Plan Acute cholecystitis with gallstone Patient had intractable pain, intermittent nausea vomiting POA in the ED Start Zosyn IV Optimize pain management Consult general surgeon for evaluation treatment Acute cholangitis Patient has elevated bilirubin, alk-phos, AST ALT, No obvious stone on CT scan Patient may pass stone Patient has leukocytosis, suspecting cholangitis Patient on Zosyn Consult GI for evaluation and treatment Acute pancreatitis Lipase above 4000 Likely resulting from bile duct obstruction Continue fluid resuscitation with normal saline Pain is controlled UTI Patient has pyuria Patient is on Zosyn Four urine culture Uncontrolled type 2 diabetes Start insulin sliding scale Optimize medication for better diabetes control Patient may stay more than 2 midnights hospital Subjective Date/time seen: 07/03/23 10:18 Interval history: I saw exam patient today, patient feels comfortable, pain is controlled, patient denies nausea vomiting. Exam Narrative: GENERAL: Pleasant, in no acute distress. Well-nourished. - EYES: EOMI. Anicteric. - HENT: Moist mucous membranes. - LUNGS: Clear to auscultation bilaterally, no wheezing, rhonchi, or rales. - CARDIOVASCULAR: Regular rate and rhythm. No murmur. No JVD. - ABDOMEN: Soft, epigastric tender and non-distended. No palpable masses. - EXTREMITIES: No edema. Peripheral pulses 2+. Non-tender. - NEUROLOGIC: No focal neurological deficits. CN II-XII grossly intact. - PSYCHIATRIC: Awake, Alert and oriented x 3. Appropriate mood and affect. - SKIN: No rashes or lesions. Warm. - LYMPH: No cervical lymphadenopathy. Objective Data Vital Signs Vital Signs: Vital Signs - 24 hr 08/19/23 14:00 07/02/23 19:45 07/02/23 23:25 Temperature 96.6 F L 98.0 F Pulse Rate 85 18 L Respiratory Rate 16 20 Blood Pressure 138/64 104/58 L Pulse Oximetry 99 97 97 Oxygen Delivery Room Air 07/03/23 04:57 07/03/23 07:55 Temperature 98.1 F Pulse Rate 73 Respiratory Rate 20 Blood Pressure 127/60 Pulse Oximetry 100 Oxygen Delivery Room Air Intake/Output Intake/Output: Intake & Output 06/30/23 07/01/23 07/02/23 07/03/23 23:59 23:59 23:59 23:59 Intake Total 2390 1050 Balance 2390 1050 Meds/Results Medications: Active Medications Generic Name Dose Route Start Last Admin Trade Name Freq PRN Reason Stop Dose Admin Dextrose 12.5 gm 07/02/23 08:53 Dextrose 50% 25 Gm/50 Ml Syringe IV PUSH PRN PRN Hypoglycemia Protocol Glucagon 1 mg 07/02/23 08:53 Glucagon For Inj 1 Mg Vial IM PRN PRN Hypoglycemia Protocol Glucose 15 gm 07/02/23 08:53 Glucose Oral Gel 15 Gm Of Glucse In 37.5 Gm Tube PO PRN PRN Hypoglycemia Protocol Heparin Sodium (Porcine) 5,000 units 07/02/23 14:00 07/03/23 05:32 Heparin Sodium 5,000 Units/Ml Vial SUB-Q 5,000 units Q8HR HIRO Administration Piperacillin/Tazobactam/Dextrose 3.375 gm in 50 mls @ 100 mls/hr 07/02/23 09:00 07/03/23 08:58 Zosyn 3.375 Gm/Ns 50 Ml IVPB 100 mls/hr Q6H HIRO Administration Dextrose 1,000 mls @ 100 mls/hr 07/02/23 08:53 Dextrose 5% 1,000 Ml IVPB PRN PRN Hypoglycemia Protocol Sodium Chl
--- NOTE | 2023-07-03 10:21 | WPDGIPROGNO ---
Progress Note: A&P Assessment and Plan (1) Acute pancreatitis: Code(s): K85.90 - Acute pancreatitis without necrosis or infection, unspecified Status: Acute Assessment and Plan: Patient with acute pancreatitis elevated lipase on presentation. Clinically has improved dramatically today. Plan to limit diet. May allow sips and chips and advance as tolerated. Continue supportive care for now. (2) Acute cholecystitis: Code(s): K81.0 - Acute cholecystitis Status: Acute Assessment and Plan: Patient appears to have acute cholecystitis on CT scan. Patient currently on broad-spectrum antibiotics. Clinically improving. Elevated transaminases are gradually declining. Plan for surgery consultation. Likely will need cholecystectomy. Ultrasound ordered to confirm the presence of gallstones which are presumed. Continue monitor LFTs. (3) Obesity (BMI 30.0-34.9): Code(s): E66.9 - Obesity, unspecified Status: Acute (4) Abdominal pain: Code(s): R10.9 - Unspecified abdominal pain Status: Acute Subjective Date/time seen: 07/03/23 10:21 Interval history: Patient alert more comfortable this morning. Anxious to start diet. States abdominal pain is lessened. Denies a fever present. Review of Systems Review of Systems: Review of systems noncontributory. Exam Narrative: Physical exam reveals patient be alert. Vital signs stable. T she is afebrile and anicteric. Lungs are clear. Heart without murmur. Abdomen bowel sounds are present soft no localized tenderness present. Abdomen is obese. Objective Data Vital Signs Vital Signs: Vital Signs - 24 hr 07/02/23 14:00 07/02/23 19:45 07/02/23 23:25 Temperature 96.6 F L 98.0 F Pulse Rate 85 18 L Respiratory Rate 16 20 Blood Pressure 138/64 104/58 L Pulse Oximetry 99 97 97 Oxygen Delivery Room Air 07/03/23 04:57 07/03/23 07:55 Temperature 98.1 F Pulse Rate 73 Respiratory Rate 20 Blood Pressure 127/60 Pulse Oximetry 100 Oxygen Delivery Room Air Intake/Output Intake/Output: Intake & Output 06/30/23 07/01/23 07/02/23 07/03/23 23:59 23:59 23:59 23:59 Intake Total 2390 1050 Balance 2390 1050 Meds/Results Medications: Active Medications Generic Name Dose Route Start Last Admin Trade Name Freq PRN Reason Stop Dose Admin Dextrose 12.5 gm 07/02/23 08:53 Dextrose 50% 25 Gm/50 Ml Syringe IV PUSH PRN PRN Hypoglycemia Protocol Glucagon 1 mg 07/02/23 08:53 Glucagon For Inj 1 Mg Vial IM PRN PRN Hypoglycemia Protocol Glucose 15 gm 07/02/23 08:53 Glucose Oral Gel 15 Gm Of Glucse In 37.5 Gm Tube PO PRN PRN Hypoglycemia Protocol Heparin Sodium (Porcine) 5,000 units 07/02/23 14:00 07/03/23 05:32 Heparin Sodium 5,000 Units/Ml Vial SUB-Q 5,000 units Q8HR HIRO Administration Piperacillin/Tazobactam/Dextrose 3.375 gm in 50 mls @ 100 mls/hr 07/02/23 09:00 07/03/23 08:58 Zosyn 3.375 Gm/Ns 50 Ml IVPB 100 mls/hr Q6H HIRO Administration Dextrose 1,000 mls @ 100 mls/hr 07/02/23 08:53 Dextrose 5% 1,000 Ml IVPB PRN PRN Hypoglycemia Protocol Sodium Chloride 1,000 mls @ 125 mls/hr 07/02/23 08:55 07/03/23 08:53 Normal Saline Iv IV CONT 125 mls/hr .Q8H HIRO Administration Insulin Aspart 4 - 8 units 07/02/23 12:00 07/03/23 05:24 Insulin Aspart (*Bkc) 100 Units/Ml SUB-Q Not Given Q6HR HIRO Protocol Morphine Sulfate 4 mg 07/02/23 06:59 07/03/23 05:35 Morphine Sulfate (*Crx) 4 Mg/Ml Inj IV PUSH 4 mg Q2H PRN Administration Pain Rated 7-10 Ondansetron HCl 4 mg 07/02/23 06:59 Ondansetron Inj 4 Mg/2 Ml Vial IV PUSH Q4H PRN Nausea Pantoprazole Sodium 40 mg 07/02/23 09:00 07/03/23 08:58 Pantoprazole Sodium Iv 40 Mg Vial IV PUSH 40 mg QAM HIRO Administration Radiology Results: ITS Impressions Abdomen/Pelvis CT
[2023-07-03 10:50] LABS: Alanine Aminotransferase 318 U/L (6-35); Albumin Level 3.5 g/dL (3.5-5.1); Alkaline Phosphatase 146 U/L (38-126); Aspartate Amino Transferase 176 U/L (14-36); Bilirubin,Total 1.1 mg/dL (0.2-1.3)
[2023-07-03 11:03] LABS: Lipase 11739 U/L (23-300)
[2023-07-03 11:44] LABS: Glucose Point of Care 67 mg/dl (65-105)
--- NOTE | 2023-07-03 12:02 | PM.CNGS ---
Assessment and Plan Assessment and plan (1) Biliary acute pancreatitis without necrosis or infection: Code(s): K85.10 - Biliary acute pancreatitis without necrosis or infection Status: Acute Assessment and Plan: Improving. Probably has passed a common bile duct stone. Will order MRCP to evaluate for other potential common bile duct stones. Start clear liquids. Appreciate consultation by Dr. Oshea. (2) Cholecystitis with cholelithiasis: Code(s): K80.10 - Calculus of gallbladder with chronic cholecystitis without obstruction Status: Acute Assessment and Plan: Appears to have acute on chronic cholecystitis as well. Will monitor how she does with resolving the pancreatitis and with oral intake. Will eventually need cholecystectomy and I explained this to her and her . Explained that gallstones are the cause of her acute pancreatitis. (3) Type 2 diabetes mellitus: Code(s): E11.9 - Type 2 diabetes mellitus without complications Status: Chronic Assessment and Plan: Blood sugars better controlled now. (4) Essential hypertension: Code(s): I10 - Essential (primary) hypertension Status: Chronic (5) Obesity (BMI 30.0-34.9): Code(s): E66.9 - Obesity, unspecified Status: Chronic History of Present Illness Consult details Consult date: 07/03/23 Reason for consult: gallstones Requesting physician: Jeffry Ivan MD Narrative: PATIENT IS A 57-YEAR-OLD WOMAN WHO CAME TO THE EMERGENCY ROOM YESTERDAY WITH SEVERE EPIGASTRIC ABDOMINAL PAIN THAT RADIATED THROUGH TO HER BACK. THIS WAS ASSOCIATED WITH SEVERE NAUSEA AND VOMITING. THIS PAIN STARTED TODAY SHE CAME TO THE EMERGENCY ROOM. SHE HAD HAD SOME PREVIOUS EPISODES OF EPIGASTRIC PAIN BUT NONE ANY WHERE NEAR SEVERE OR LONG-LASTING THIS. PATIENT DOES HAVE DIABETES AND HYPERTENSION. IN THE EMERGENCY ROOM SHE WAS NOTED TO HAVE TENDERNESS IN THE EPIGASTRIC AREA. [place]LO[place] [id number]. HER LIVER FUNCTION TESTS WERE ELEVATED. HER LIPASE WAS OVER 40,000. CT SCAN OF THE ABDOMEN AND PELVIS WILL WAS PERFORMED AND SHOWED GALLBLADDER DISEASE WITH GALLSTONES AND ACUTE INTERSTITIAL PANCREATITIS. PATIENT HAS RECEIVED IV AND ANALGESICS AND IV FLUIDS. SHE IS ADMITTED AND IS SEEN NOW IN CONSULTATION. PATIENT ALSO HAS A VERY SUSPICIOUS AND URINALYSIS. CULTURE IS PENDING. SHE HAS BEEN STARTED ON ZOSYN FOR THIS WELL THE POTENTIAL FOR CHOLECYSTITIS. This morning, at the time my evaluation, she is feeling much better. She still has soreness in the epigastric area and this does radiate to her back. However she is quite hungry and much less painful than yesterday and particularly less than when she came in. She has been started on clear liquids. Her lipase today is down to 11,700. Liver function tests are decreasing. She is definitely improved. Her white blood cell count is down to 7000. Review of Systems Review of Systems: All systems reviewed & are unremarkable except as noted in HPI and below (HPI and those items noted below) Constitutional: Constitutional: Denies chills and Denies fever(s) Cardiovascular: Cardiovascular: Denies chest pain, Denies diaphoresis, Denies dyspnea and Denies paroxysmal nocturnal dyspnea Respiratory: Respiratory: Denies chest congestion, Denies cough and Denies dyspnea Integumentary/Breasts: Skin/Breast: Denies lesions and Denies rash PMFSH Past Medical History Medical History Diabetes High blood pressure High cholesterol Surgical History Surgical History History of x2 History of eye surgery x2 History of tubal ligation x2 Family History Family History Mother Diabetes mellitus Grandparent Diabetes mellitus Social History Social History (Reviewed 07/03/23 @ 12:06 by
[2023-07-03 13:36] VITALS: BP 141/65; PULSE 93; RESP 16; TEMP 36.4; O2SAT 100
[2023-07-03 17:48] LABS: Glucose Point of Care 140 mg/dl (65-105)
[2023-07-03 20:36] VITALS: BP 137/70; PULSE 77; RESP 16; TEMP 36.2; O2SAT 99
[2023-07-04 00:03] LABS: Glucose Point of Care 93 mg/dl (65-105)
[2023-07-04] MEDS: PIPERACILLN/TAZ 3.375GM/NS50ML 3.375 GM/50 ML BAG IVPB ×4 (02:04→20:35)
[2023-07-04 05:52] VITALS: BP 130/68; PULSE 74; RESP 16; TEMP 36.5; O2SAT 95
[2023-07-04] MEDS: HEPARIN SODIUM 5,000 UNITS/ML VIAL 5000 UNITS SUB-Q (06:44)
--- NOTE | 2023-07-04 07:55 | PC.NURSE ---
[facility]
--- NOTE | 2023-07-04 08:15 | PC.NURSE ---
Flue Lining Dipper spoke with MRI. Patient unable to do MRCP. Patient unable to lie flat as she is not able to breathe while doing so.
--- NOTE | 2023-07-04 08:51 | PM.IMPN ---
Progress Note: A&P Assessment and Plan (1) Acute pancreatitis: Code(s): K85.90 - Acute pancreatitis without necrosis or infection, unspecified Status: Acute (2) Acute cholecystitis: Code(s): K81.0 - Acute cholecystitis Status: Acute (3) Gallstone: Code(s): K80.20 - Calculus of gallbladder without cholecystitis without obstruction Status: Acute (4) Elevated liver enzymes: Code(s): R74.8 - Abnormal levels of other serum enzymes Status: Acute (5) Acute cholecystitis with acute cholangitis: Code(s): K81.0 - Acute cholecystitis; K83.09 - Other cholangitis Status: Acute (6) Uncontrolled type 2 diabetes mellitus: Status: Acute Plan Acute cholecystitis with gallstone Patient had intractable pain, intermittent nausea vomiting POA in the ED Start Zosyn IV US abdomen pelvis shows mildly dilated common duct. Distended gallbladder with gallstones and gallbladder wall thickening, but no sonographic Arauz sign. These findings are consistent with acute cholecystitis. Optimize pain management Consult general surgeon for evaluation treatment Acute cholangitis Patient has elevated bilirubin, alk-phos, AST ALT, No obvious stone on CT scan Patient may pass stone Patient has leukocytosis, suspecting cholangitis Patient on Zosyn Consult GI for evaluation and treatment Acute pancreatitis Lipase above 4000 POA Likely resulting from bile duct obstruction Continue fluid resuscitation with normal saline Pain is controlled UTI Patient has pyuria Patient is on Zosyn urine culture Gram-negative bacilli Uncontrolled type 2 diabetes Start insulin sliding scale Optimize medication for better diabetes control Patient may stay more than 2 midnights hospital Subjective Date/time seen: 07/04/23 08:51 Interval history: I saw exam patient today, patient feels comfortable, pain is controlled, patient denies nausea vomiting. Patient cannot tolerate MRCP because of nausea, shortness of breath on the table of MRI Exam Narrative: GENERAL: Pleasant, in no acute distress. Well-nourished. - EYES: EOMI. Anicteric. - HENT: Moist mucous membranes. - LUNGS: Clear to auscultation bilaterally, no wheezing, rhonchi, or rales. - CARDIOVASCULAR: Regular rate and rhythm. No murmur. No JVD. - ABDOMEN: Soft, epigastric tender and non-distended. No palpable masses. - EXTREMITIES: No edema. Peripheral pulses 2+. Non-tender. - NEUROLOGIC: No focal neurological deficits. CN II-XII grossly intact. - PSYCHIATRIC: Awake, Alert and oriented x 3. Appropriate mood and affect. - SKIN: No rashes or lesions. Warm. - LYMPH: No cervical lymphadenopathy. Objective Data Vital Signs Vital Signs: Vital Signs - 24 hr 07/03/23 13:36 07/03/23 20:36 07/03/23 20:00 Temperature 97.5 F L 97.2 F L Pulse Rate 93 77 Respiratory Rate 16 16 Blood Pressure 141/65 H 137/70 Pulse Oximetry 100 99 Oxygen Delivery Room Air 07/04/23 05:52 07/04/23 07:55 Temperature 97.7 F Pulse Rate 74 Respiratory Rate 16 Blood Pressure 130/68 Pulse Oximetry 95 Oxygen Delivery Room Air Intake/Output Intake/Output: Intake & Output 07/01/23 07/02/23 07/03/23 07/04/23 23:59 23:59 23:59 23:59 Intake Total 2390 3800 300 Balance 2390 3800 300 Meds/Results Medications: Active Medications Generic Name Dose Route Start Last Admin Trade Name Freq PRN Reason Stop Dose Admin Dextrose 12.5 gm 07/02/23 08:53 Dextrose 50% 25 Gm/50 Ml Syringe IV PUSH PRN PRN Hypoglycemia Protocol Glucagon 1 mg 07/02/23 08:53 Glucagon For Inj 1 Mg Vial IM PRN PRN Hypoglycemia Protocol Glucose 15 gm 07/02/23 08:53 Glucose Oral Gel 15 Gm Of Glucse In 37.5 Gm Tube PO PRN PRN Hypoglycemia Protocol Heparin Sodium (Porcine) 5,000 units 07/02/23 14:00 07/04/23 06:44 Heparin Sodium 5,000 Units/Ml Vial SUB-Q 5,000 units Q8HR [facility]
[2023-07-04] MEDS: SODIUM CHLORIDE 0.9% IV 1,000 ML 125 ML IV CONT ×2 (09:03→17:36)
[2023-07-04] MEDS: PANTOPRAZOLE SODIUM IV 40 MG VIAL IV PUSH (09:08)
--- NOTE | 2023-07-04 10:40 | PC.NURSE ---
Wire Bound Box Machine Operator called Dr. Lacey's office to update him in regards to patient not being able to get MRCP
--- NOTE | 2023-07-04 10:48 | WPDGIPROGNO ---
Progress Note: A&P Assessment and Plan (1) Cholecystitis with cholelithiasis: Code(s): K80.10 - Calculus of gallbladder with chronic cholecystitis without obstruction Status: Acute Assessment and Plan: Patient with acute cholecystitis and gallstones noted on imaging studies. Currently on broad-spectrum antibiotics. Surgery is seeing the patient for eventuall cholecystectomy. (2) Biliary acute pancreatitis without necrosis or infection: Code(s): K85.10 - Biliary acute pancreatitis without necrosis or infection Status: Acute Assessment and Plan: patient admitted with acute pancreatitis. Markedly elevated serum lipase. This remains elevated today. Patient's symptoms have improved dramatically. Suspect she passed common bile duct gallstone. MRCP ordered but not yet accomplished to clear the common bile duct. Hopefully this can be cleared prior to surgery. If not intraoperative cholangiogram may be required. Subjective Date/time seen: 07/04/23 10:48 Interval history: Patient alert comfortable this morning. Denies abdominal pain. MRCP unable to be performed. Review of Systems Review of Systems: Review of systems noncontributory. Exam Narrative: Physical exam reveals patient be alert. Vital signs stable. HEENT exam unremarkable. Patient anicteric. Lungs are clear. Heart without murmur. Abdomen bowel sounds present soft with only mild epigastric discomfort. Objective Data Vital Signs Vital Signs: Vital Signs - 24 hr 07/03/23 13:36 07/03/23 20:36 07/03/23 20:00 Temperature 97.5 F L 97.2 F L Pulse Rate 93 77 Respiratory Rate 16 16 Blood Pressure 141/65 H 137/70 Pulse Oximetry 100 99 Oxygen Delivery Room Air 07/04/23 05:52 07/04/23 07:55 Temperature 97.7 F Pulse Rate 74 Respiratory Rate 16 Blood Pressure 130/68 Pulse Oximetry 95 Oxygen Delivery Room Air Intake/Output Intake/Output: Intake & Output 07/01/23 07/02/23 07/03/23 07/04/23 23:59 23:59 23:59 23:59 Intake Total 2390 3800 1350 Balance 2390 3800 1350 Meds/Results Medications: Active Medications Generic Name Dose Route Start Last Admin Trade Name Freq PRN Reason Stop Dose Admin Dextrose 12.5 gm 07/02/23 08:53 Dextrose 50% 25 Gm/50 Ml Syringe IV PUSH PRN PRN Hypoglycemia Protocol Glucagon 1 mg 07/02/23 08:53 Glucagon For Inj 1 Mg Vial IM PRN PRN Hypoglycemia Protocol Glucose 15 gm 07/02/23 08:53 Glucose Oral Gel 15 Gm Of Glucse In 37.5 Gm Tube PO PRN PRN Hypoglycemia Protocol Heparin Sodium (Porcine) 5,000 units 07/02/23 14:00 07/04/23 06:44 Heparin Sodium 5,000 Units/Ml Vial SUB-Q 5,000 units Q8HR [facility] Administration Piperacillin/Tazobactam/Dextrose 3.375 gm in 50 mls @ 100 mls/hr 07/02/23 09:00 07/04/23 09:38 Zosyn 3.375 Gm/Ns 50 Ml IVPB Infused Q6H [facility] Infusion Dextrose 1,000 mls @ 100 mls/hr 07/02/23 08:53 Dextrose 5% 1,000 Ml IVPB PRN PRN Hypoglycemia Protocol Sodium Chloride 1,000 mls @ 125 mls/hr 07/02/23 08:55 07/04/23 09:03 Normal Saline Iv IV CONT 125 mls/hr .Q8H [facility] Administration Insulin Aspart 4 - 8 units 07/02/23 12:00 07/04/23 06:44 Insulin Aspart (*Bkc) 100 Units/Ml SUB-Q Not Given Q6HR [facility] Protocol Morphine Sulfate 4 mg 07/02/23 06:59 07/03/23 05:35 Morphine Sulfate (*Crx) 4 Mg/Ml Inj IV PUSH 4 mg Q2H PRN Administration Pain Rated 7-10 Ondansetron HCl 4 mg 07/02/23 06:59 Ondansetron Inj 4 Mg/2 Ml Vial IV PUSH Q4H PRN Nausea Pantoprazole Sodium 40 mg 07/02/23 09:00 07/04/23 09:08 Pantoprazole Sodium Iv 40 Mg Vial IV PUSH 40 mg QAM [facility]O Administration Radiology Results: ITS Impressions Abdomen/Pelvis CT 07/02/23 06:17 IMPRESSION: 1. Acute interstitial pancreatitis. 2. Acute cholecystitis. Abdomen Ultrasound 07/03/23 10:48 IMPRESSION: 1. Mi
--- NOTE | 2023-07-04 10:54 | PM.PNGS ---
Progress Note: A&P Assessment and Plan (1) Biliary acute pancreatitis without necrosis or infection: Code(s): K85.10 - Biliary acute pancreatitis without necrosis or infection Status: Acute Assessment and Plan: Still having abdominal pain although much better than on admission. Lipase had decreased yesterday to [id number]. Pending labs from today. MRCP scheduled today. Not sure if persistent pain is from pancreatitis or cholecystitis. (2) Cholecystitis with cholelithiasis: Code(s): K80.10 - Calculus of gallbladder with chronic cholecystitis without obstruction Status: Acute Assessment and Plan: Suggested on imaging with acute interstitial pancreatitis. Not sure if residual pain is from cholecystitis or pancreatitis. MRCP pending as are today's labs. Will need cholecystectomy eventually. Subjective Subjective Date/Time Seen: 07/04/23 10:54 Patient reports: pain is less (Still having epigastric abdominal pain, better than on admission but still present), tolerating liquids well (Clear liquids did not make her symptoms worse yesterday), no bowel movement and afebrile Review of Systems Review of Systems: All systems reviewed & are unremarkable except as noted in HPI and below (HPI and those items noted below) Constitutional: Constitutional: Denies chills and Denies fever(s) Cardiovascular: Cardiovascular: Denies chest pain, Denies diaphoresis, Denies dyspnea and Denies paroxysmal nocturnal dyspnea Respiratory: Respiratory: Denies chest congestion, Denies cough and Denies dyspnea Integumentary/Breasts: Skin/Breast: Denies lesions and Denies rash Exam Const: General: cooperative, comfortable (Lying on right side, not moving much because of persistent abdominal pain), no acute distress, alert, awake and tired appearing Nutritional Appearance: obese Orientation/consciousness: patient oriented x3 GI: Inspection: obesity GI Palp: Yes Soft to palpation, Yes Tenderness to palpation present (GI) (Persistent epigastric tenderness), No Guarding due to palpation present (GI) and No Rebound tenderness present Neuro: General: patient oriented x3 and no focal motor deficits Extrem: General: no calf tenderness and no edema Psych: Affect: normal affect Insight: Good insight present (Psych) Judgement: Good judgement present (Psych) Objective Data Vital Signs Vital Signs: Vital Signs - 24 hr 07/03/23 13:36 07/03/23 20:36 07/03/23 20:00 Temperature 36.4 C L 36.2 C L Pulse Rate 93 77 Respiratory Rate 16 16 Blood Pressure 141/65 H 137/70 Pulse Oximetry 100 99 Oxygen Delivery Room Air 07/04/23 05:52 07/04/23 07:55 Temperature 36.5 C Pulse Rate 74 Respiratory Rate 16 Blood Pressure 130/68 Pulse Oximetry 95 Oxygen Delivery Room Air Intake/Output Intake/Output: Intake & Output 07/01/23 07/02/23 07/03/23 07/04/23 23:59 23:59 23:59 23:59 Intake Total 2390 3800 1350 Balance 2390 3800 1350 Meds/Results Medications: Active Medications Generic Name Dose Route Start Last Admin Trade Name Freq PRN Reason Stop Dose Admin Dextrose 12.5 gm 07/02/23 08:53 Dextrose 50% 25 Gm/50 Ml Syringe IV PUSH PRN PRN Hypoglycemia Protocol Glucagon 1 mg 07/02/23 08:53 Glucagon For Inj 1 Mg Vial IM PRN PRN Hypoglycemia Protocol Glucose 15 gm 07/02/23 08:53 Glucose Oral Gel 15 Gm Of Glucse In 37.5 Gm Tube PO PRN PRN Hypoglycemia Protocol Heparin Sodium (Porcine) 5,000 units 07/02/23 14:00 07/04/23 06:44 Heparin Sodium 5,000 Units/Ml Vial SUB-Q 5,000 units Q8HR [facility] Administration Piperacillin/Tazobactam/Dextrose 3.375 gm in 50 mls @ 100 mls/hr 07/02/23 09:00 07/04/23 09:38 Zosyn 3.375 Gm/Ns 50 Ml IVPB Infused Q6H [facility] Infusion Dextrose 1,000 mls @ 100 mls/hr 07/02/23 08:53 Dextrose 5% 1,000 Ml IVPB PRN PRN Hypoglycemia Protocol Sodium Chloride 1,000 mls @ 125 mls/hr 06/14
[2023-07-04 11:24] LABS: Hematocrit 37.2 % (37.0-47.0); Mean Corpuscular HGB Conc 32.3 g/dl (32-36); Mean Corpuscular Hemoglobin 31.6 pg (26-34); Mean Corpuscular Volume 97.9 fl (80-100); Mean Platelet Volume 8.4 fl (7.4-10.4); Platelet Count Result 240 k/mm3 (150-375); Red Cell Distribution Width 13.4 % (11.5-14.5); White Blood Count 5.5 K/mm3 (4.5-10.0)
[2023-07-04 11:42] LABS: Alanine Aminotransferase 187 U/L (6-35); Albumin Level 3.9 g/dL (3.5-5.1); Alkaline Phosphatase 132 U/L (38-126); Anion Gap 12 mmol/L (8-16); Aspartate Amino Transferase 48 U/L (14-36); Bilirubin,Total 0.9 mg/dL (0.2-1.3); Blood Urea Nitrogen 15 mg/dL (7-17); Carbon Dioxide 26 mmol/L (22-30); Chloride 100 mmol/L (98-107); Estimated CRCL calculation 51 ml/min; Estimated Glomerular Filt Rate 46; Glucose 118 mg/dL (65-110); Potassium 3.5 mmol/L (3.4-5.0); Sodium 138 mmol/L (137-145)
[2023-07-04 12:13] LABS: Lipase 2920 U/L (23-300)
[2023-07-04 15:37] VITALS: BP 163/83; PULSE 74; RESP 18; TEMP 36; O2SAT 100
[2023-07-04 16:57] LABS: Glucose Point of Care 100 mg/dl (65-105)
[2023-07-04 19:52] VITALS: BP 124/77; PULSE 74; RESP 16; TEMP 36.5; O2SAT 100
[2023-07-05 00:07] LABS: Glucose Point of Care 86 mg/dl (65-105)
[2023-07-05] MEDS: SODIUM CHLORIDE 0.9% IV 1,000 ML 125 ML IV CONT ×3 (02:15→20:09)
[2023-07-05] MEDS: PIPERACILLN/TAZ 3.375GM/NS50ML 3.375 GM/50 ML BAG IVPB ×4 (02:15→20:10)
[2023-07-05 05:53] VITALS: BP 140/76; PULSE 77; RESP 16; TEMP 36.6; O2SAT 100
[2023-07-05 06:02] LABS: Glucose Point of Care 109 mg/dl (65-105)
[2023-07-05 07:56] LABS: Hematocrit 33.5 % (37.0-47.0); Hemoglobin 10.8 g/dL (12.0-15.0); Mean Corpuscular HGB Conc 32.2 g/dl (32-36); Mean Corpuscular Hemoglobin 30.9 pg (26-34); Mean Platelet Volume 8.4 fl (7.4-10.4); Platelet Count Result 217 k/mm3 (150-375); Red Blood Count 3.49 M/mm3 (4.2-5.4); Red Cell Distribution Width 13.2 % (11.5-14.5); White Blood Count 4.8 K/mm3 (4.5-10.0)
[2023-07-05 08:15] LABS: Potassium 3.6 mmol/L (3.4-5.0)
[2023-07-05 08:20] LABS: Alanine Aminotransferase 126 U/L (6-35); Albumin Level 3.5 g/dL (3.5-5.1); Alkaline Phosphatase 116 U/L (38-126); Anion Gap 7 mmol/L (8-16); Aspartate Amino Transferase 33 U/L (14-36); Bilirubin,Total 0.5 mg/dL (0.2-1.3); Blood Urea Nitrogen 12 mg/dL (7-17); Calcium 8.6 mg/dL (8.4-10.2); Carbon Dioxide 23 mmol/L (22-30); Chloride 108 mmol/L (98-107); Estimated CRCL calculation 51 ml/min; Estimated Glomerular Filt Rate 46; Glucose 114 mg/dL (65-110); Lipase 1458 U/L (23-300); Sodium 138 mmol/L (137-145)
[2023-07-05] MEDS: PANTOPRAZOLE SODIUM IV 40 MG VIAL IV PUSH (08:53)
--- NOTE | 2023-07-05 10:30 | PM.PNGS ---
Progress Note: A&P Assessment and Plan (1) Biliary acute pancreatitis without necrosis or infection: Code(s): K85.10 - Biliary acute pancreatitis without necrosis or infection Status: Acute Assessment and Plan: Continues to improve. Epigastric pain essentially gone. Tenderness almost gone. Will place patient on low-fat diet. If tolerates, can go home tomorrow and come back next week for laparoscopic cholecystectomy with intraoperative cholangiogram. (2) Cholecystitis with cholelithiasis: Code(s): K80.10 - Calculus of gallbladder with chronic cholecystitis without obstruction Status: Acute Assessment and Plan: Continues to improve. Subjective Subjective Date/Time Seen: 07/05/23 10:30 Patient reports: feels better, pain is less (Denies abdominal pain), tolerating liquids well, bowel movement and afebrile Interval history: Patient was unable to lie flat so did not have MRCP yesterday Review of Systems Review of Systems: All systems reviewed & are unremarkable except as noted in HPI and below (HPI) Exam Const: General: comfortable, no acute distress, alert, awake and tired appearing Nutritional Appearance: obese Orientation/consciousness: patient oriented x3 GI: Inspection: non-distended and obesity GI Palp: Yes Soft to palpation, Yes Tenderness to palpation present (GI) (Minimal epigastric tenderness, much better), No Guarding due to palpation present (GI), No Hepatomegaly present, No Splenomegaly present, No Hernia present, No Palpable mass present and No Rebound tenderness present Neuro: General: patient oriented x3 and no focal motor deficits Extrem: General: no calf tenderness and no edema Psych: Affect: normal affect Insight: Good insight present (Psych) Judgement: Good judgement present (Psych) Objective Data Vital Signs Vital Signs: Vital Signs - 24 hr 07/04/23 15:37 07/04/23 19:52 07/04/23 20:00 Temperature 36.0 C L 36.5 C Pulse Rate 74 74 Respiratory Rate 18 16 Blood Pressure 163/83 H 124/77 Pulse Oximetry 100 100 Oxygen Delivery Room Air 07/05/23 05:53 07/05/23 08:54 Temperature 36.6 C Pulse Rate 77 Respiratory Rate 16 Blood Pressure 140/76 Pulse Oximetry 100 Oxygen Delivery Room Air Intake/Output Intake/Output: Intake & Output 07/02/23 07/03/23 07/04/23 07/05/23 23:59 23:59 23:59 23:59 Intake Total 2390 3800 2930 1690 Balance 2390 3800 2930 1690 Meds/Results Medications: Active Medications Generic Name Dose Route Start Last Admin Trade Name Freq PRN Reason Stop Dose Admin Dextrose 12.5 gm 07/02/23 08:53 Dextrose 50% 25 Gm/50 Ml Syringe IV PUSH PRN PRN Hypoglycemia Protocol Glucagon 1 mg 07/02/23 08:53 Glucagon For Inj 1 Mg Vial IM PRN PRN Hypoglycemia Protocol Glucose 15 gm 07/02/23 08:53 Glucose Oral Gel 15 Gm Of Glucse In 37.5 Gm Tube PO PRN PRN Hypoglycemia Protocol Heparin Sodium (Porcine) 5,000 units 07/02/23 14:00 07/05/23 05:28 Heparin Sodium 5,000 Units/Ml Vial SUB-Q Not Given Q8HR [facility] Piperacillin/Tazobactam/Dextrose 3.375 gm in 50 mls @ 100 mls/hr 07/02/23 09:00 07/05/23 09:24 Zosyn 3.375 Gm/Ns 50 Ml IVPB Infused Q6H [facility] Infusion Dextrose 1,000 mls @ 100 mls/hr 07/02/23 08:53 Dextrose 5% 1,000 Ml IVPB PRN PRN Hypoglycemia Protocol Sodium Chloride 1,000 mls @ 125 mls/hr 07/02/23 08:55 07/05/23 02:15 Normal Saline Iv IV CONT 125 mls/hr .Q8H [facility] Administration Insulin Aspart 4 - 8 units 07/02/23 12:00 07/05/23 07:01 Insulin Aspart (*Bkc) 100 Units/Ml SUB-Q Not Given Q6HR [facility] Protocol Morphine Sulfate 4 mg 07/02/23 06:59 07/03/23 05:35 Morphine Sulfate (*Crx) 4 Mg/Ml Inj IV PUSH 4 mg Q2H PRN Administration Pain Rated 7-10 Ondansetron HCl 4 mg 07/02/23 06:59 Ondansetron Inj 4 Mg/2 Ml Vial IV PUSH Q4H PRN Nausea Pantoprazole Sodium 40 m
--- NOTE | 2023-07-05 10:49 | WPDGIPROGNO ---
Progress Note: A&P Assessment and Plan (1) Cholecystitis with cholelithiasis: Code(s): K80.10 - Calculus of gallbladder with chronic cholecystitis without obstruction Status: Acute Assessment and Plan: Patient admitted with cholecystitis and pancreatitis. Clinically improving. Plan to advance to a low-fat diet. Surgical follow-up further directions. (2) Biliary acute pancreatitis without necrosis or infection: Code(s): K85.10 - Biliary acute pancreatitis without necrosis or infection Status: Acute Subjective Date/time seen: 07/05/23 10:49 Interval history: Patient alert comfortable this morning. Denies abdominal pain. Tolerating diet so far. Agree with surgical follow-up. Review of Systems Review of Systems: Review of systems noncontributory. Exam Narrative: Physical exam reveals patient be alert comfortable at rest. HEENT exam unremarkable. Lungs are clear. Heart without murmur. Abdomen bowel sounds present soft nontender with no organomegaly. Objective Data Vital Signs Vital Signs: Vital Signs - 24 hr 07/04/23 15:37 07/04/23 19:52 07/04/23 20:00 Temperature 96.8 F L 97.7 F Pulse Rate 74 74 Respiratory Rate 18 16 Blood Pressure 163/83 H 124/77 Pulse Oximetry 100 100 Oxygen Delivery Room Air 07/05/23 05:53 07/05/23 08:54 Temperature 97.9 F Pulse Rate 77 Respiratory Rate 16 Blood Pressure 140/76 Pulse Oximetry 100 Oxygen Delivery Room Air Intake/Output Intake/Output: Intake & Output 07/02/23 07/03/23 07/04/23 07/05/23 23:59 23:59 23:59 23:59 Intake Total 2390 3800 2930 1690 Balance 2390 3800 2930 1690 Meds/Results Medications: Active Medications Generic Name Dose Route Start Last Admin Trade Name Freq PRN Reason Stop Dose Admin Dextrose 12.5 gm 07/02/23 08:53 Dextrose 50% 25 Gm/50 Ml Syringe IV PUSH PRN PRN Hypoglycemia Protocol Glucagon 1 mg 07/02/23 08:53 Glucagon For Inj 1 Mg Vial IM PRN PRN Hypoglycemia Protocol Glucose 15 gm 07/02/23 08:53 Glucose Oral Gel 15 Gm Of Glucse In 37.5 Gm Tube PO PRN PRN Hypoglycemia Protocol Heparin Sodium (Porcine) 5,000 units 07/02/23 14:00 07/05/23 05:28 Heparin Sodium 5,000 Units/Ml Vial SUB-Q Not Given Q8HR [facility] Piperacillin/Tazobactam/Dextrose 3.375 gm in 50 mls @ 100 mls/hr 07/02/23 09:00 07/05/23 09:24 Zosyn 3.375 Gm/Ns 50 Ml IVPB Infused Q6H [facility] Infusion Dextrose 1,000 mls @ 100 mls/hr 07/02/23 08:53 Dextrose 5% 1,000 Ml IVPB PRN PRN Hypoglycemia Protocol Sodium Chloride 1,000 mls @ 125 mls/hr 07/02/23 08:55 07/05/23 02:15 Normal Saline Iv IV CONT 125 mls/hr .Q8H [facility] Administration Insulin Aspart 4 - 8 units 07/02/23 12:00 07/05/23 07:01 Insulin Aspart (*Bkc) 100 Units/Ml SUB-Q Not Given Q6HR [facility] Protocol Morphine Sulfate 4 mg 07/02/23 06:59 07/03/23 05:35 Morphine Sulfate (*Crx) 4 Mg/Ml Inj IV PUSH 4 mg Q2H PRN Administration Pain Rated 7-10 Ondansetron HCl 4 mg 07/02/23 06:59 Ondansetron Inj 4 Mg/2 Ml Vial IV PUSH Q4H PRN Nausea Pantoprazole Sodium 40 mg 07/02/23 09:00 07/05/23 08:53 Pantoprazole Sodium Iv 40 Mg Vial IV PUSH 40 mg QAM [facility]O Administration Radiology Results: ITS Impressions Abdomen/Pelvis CT 07/02/23 06:17 IMPRESSION: 1. Acute interstitial pancreatitis. 2. Acute cholecystitis. Abdomen Ultrasound 07/03/23 10:48 IMPRESSION: 1. Mildly dilated common duct. 2. Distended gallbladder with gallstones and gallbladder wall thickening, but no sonographic Arauz sign. These findings are consistent with acute cholecystitis. Labs Labs: Laboratory Results - last 24 hr 07/04/23 07/04/23 07/05/23 11:12 12:09 00:01 WBC 5.5 RBC 3.80 L Hgb 12.0 Hct 37.2 MCV 97.9 MCH 31.6 MCHC 32.3 RDW 13.4 Plt Count 240 MPV 8.4 Sodium
[2023-07-05 12:36] LABS: Glucose Point of Care 139 mg/dl (65-105)
--- NOTE | 2023-07-05 13:26 | PM.IMPN ---
Progress Note: A&P Assessment and Plan (1) Acute pancreatitis: Code(s): K85.90 - Acute pancreatitis without necrosis or infection, unspecified Status: Acute (2) Acute cholecystitis: Code(s): K81.0 - Acute cholecystitis Status: Acute (3) Gallstone: Code(s): K80.20 - Calculus of gallbladder without cholecystitis without obstruction Status: Acute (4) Elevated liver enzymes: Code(s): R74.8 - Abnormal levels of other serum enzymes Status: Acute (5) Acute cholecystitis with acute cholangitis: Code(s): K81.0 - Acute cholecystitis; K83.09 - Other cholangitis Status: Acute (6) Uncontrolled type 2 diabetes mellitus: Status: Acute Plan Acute cholecystitis with gallstone Patient had intractable pain, intermittent nausea vomiting POA in the ED Start Zosyn IV US abdomen pelvis shows mildly dilated common duct. Distended gallbladder with gallstones and gallbladder wall thickening, but no sonographic Arauz sign. These findings are consistent with acute cholecystitis. Optimize pain management Start low fat diet and see clinical picture Acute cholangitis Patient has elevated bilirubin, alk-phos, AST ALT, No obvious stone on CT scan Patient may pass stone Patient has leukocytosis, suspecting cholangitis Patient on Zosyn Acute pancreatitis Lipase above 4000 POA Likely resulting from bile duct obstruction Continue fluid resuscitation with normal saline Pain is controlled UTI Patient has pyuria Patient is on Zosyn urine culture Gram-negative bacilli Uncontrolled type 2 diabetes Start insulin sliding scale Optimize medication for better diabetes control Subjective Date/time seen: 07/05/23 13:26 Interval history: Pt started on low fat diet Surgery and GI rounding possible DC seven with return for lap chol in 2 weeks time. Pt having some RUQ pains Patient cannot tolerate MRCP because of nausea, shortness of breath on the table of MRI Review of Systems Review of Systems: Some RUQ pains Exam Narrative: GENERAL: Pleasant, in no acute distress. Well-nourished. - EYES: EOMI. Anicteric. - HENT: Moist mucous membranes. - LUNGS: Clear to auscultation bilaterally, no wheezing, rhonchi, or rales. - CARDIOVASCULAR: Regular rate and rhythm. No murmur. No JVD. - ABDOMEN: Soft, epigastric tender and non-distended. No palpable masses. - EXTREMITIES: No edema. Peripheral pulses 2+. Non-tender. - NEUROLOGIC: No focal neurological deficits. CN II-XII grossly intact. - PSYCHIATRIC: Awake, Alert and oriented x 3. Appropriate mood and affect. - SKIN: No rashes or lesions. Warm. - LYMPH: No cervical lymphadenopathy. Objective Data Vital Signs Vital Signs: Vital Signs - 24 hr 07/04/23 15:37 07/04/23 19:52 07/04/23 20:00 Temperature 36.0 C L 36.5 C Pulse Rate 74 74 Respiratory Rate 18 16 Blood Pressure 163/83 H 124/77 Pulse Oximetry 100 100 Oxygen Delivery Room Air 07/05/23 05:53 07/05/23 08:54 Temperature 36.6 C Pulse Rate 77 Respiratory Rate 16 Blood Pressure 140/76 Pulse Oximetry 100 Oxygen Delivery Room Air Intake/Output Intake/Output: Intake & Output 07/02/23 07/03/23 07/04/23 07/05/23 23:59 23:59 23:59 23:59 Intake Total 2390 3800 2930 2930 Balance 2390 3800 2930 2930 Meds/Results Medications: Active Medications Generic Name Dose Route Start Last Admin Trade Name Freq PRN Reason Stop Dose Admin Dextrose 12.5 gm 07/02/23 08:53 Dextrose 50% 25 Gm/50 Ml Syringe IV PUSH PRN PRN Hypoglycemia Protocol Glucagon 1 mg 07/02/23 08:53 Glucagon For Inj 1 Mg Vial IM PRN PRN Hypoglycemia Protocol Glucose 15 gm 07/02/23 08:53 Glucose Oral Gel 15 Gm Of Glucse In 37.5 Gm Tube PO PRN PRN Hypoglycemia Protocol Heparin Sodium (Porcine) 5,000 units 07/02/23 14:00 07/05/23 13:13 Heparin Sodium 5,000 Units/Ml Vial SUB-Q Not Given Q8
[2023-07-05 14:41] LABS: Glucose Point of Care 121 mg/dl (65-105)
[2023-07-05 15:40] LABS: Alanine Aminotransferase 116 U/L (6-35); Albumin Level 3.5 g/dL (3.5-5.1); Alkaline Phosphatase 113 U/L (38-126); Anion Gap 9 mmol/L (8-16); Aspartate Amino Transferase 29 U/L (14-36); Bilirubin,Total 0.3 mg/dL (0.2-1.3); Blood Urea Nitrogen 15 mg/dL (7-17); Calcium 8.6 mg/dL (8.4-10.2); Carbon Dioxide 19 mmol/L (22-30); Chloride 109 mmol/L (98-107); Estimated CRCL calculation 56 ml/min; Estimated Glomerular Filt Rate 51; Glucose 141 mg/dL (65-110); Potassium 3.9 mmol/L (3.4-5.0); Sodium 137 mmol/L (137-145)
[2023-07-05 15:41] VITALS: BP 114/83; PULSE 63; RESP 18; TEMP 36.4; O2SAT 100
[2023-07-05 20:31] VITALS: BP 144/69; PULSE 75; RESP 16; TEMP 36.2; O2SAT 98
[2023-07-06 00:02] LABS: Glucose Point of Care 134 mg/dl (65-105)
[2023-07-06] MEDS: SODIUM CHLORIDE 0.9% IV 1,000 ML 125 ML IV CONT ×2 (02:57→11:52)
[2023-07-06] MEDS: PIPERACILLN/TAZ 3.375GM/NS50ML 3.375 GM/50 ML BAG IVPB ×2 (02:57→08:11)
[2023-07-06 05:16] VITALS: BP 138/75; PULSE 62; RESP 16; TEMP 36.7; O2SAT 96
[2023-07-06 05:56] LABS: Hematocrit 32.7 % (37.0-47.0); Hemoglobin 10.6 g/dL (12.0-15.0); Mean Corpuscular HGB Conc 32.4 g/dl (32-36); Mean Corpuscular Hemoglobin 31.7 pg (26-34); Mean Corpuscular Volume 97.9 fl (80-100); Mean Platelet Volume 8.5 fl (7.4-10.4); Platelet Count Result 232 k/mm3 (150-375); Red Blood Count 3.34 M/mm3 (4.2-5.4); Red Cell Distribution Width 13.3 % (11.5-14.5); White Blood Count 5.5 K/mm3 (4.5-10.0)
[2023-07-06 06:11] LABS: Alanine Aminotransferase 89 U/L (6-35); Albumin Level 3.2 g/dL (3.5-5.1); Alkaline Phosphatase 102 U/L (38-126); Anion Gap 4 mmol/L (8-16); Aspartate Amino Transferase 25 U/L (14-36); Bilirubin,Total 0.4 mg/dL (0.2-1.3); Blood Urea Nitrogen 16 mg/dL (7-17); Calcium 8.3 mg/dL (8.4-10.2); Carbon Dioxide 20 mmol/L (22-30); Chloride 110 mmol/L (98-107); Estimated CRCL calculation 51 ml/min; Estimated Glomerular Filt Rate 46; Glucose 133 mg/dL (65-110); Lipase 1401 U/L (23-300); Potassium 3.7 mmol/L (3.4-5.0); Sodium 134 mmol/L (137-145)
[2023-07-06 06:35] LABS: Glucose Point of Care 131 mg/dl (65-105)
[2023-07-06] MEDS: PANTOPRAZOLE SODIUM IV 40 MG VIAL IV PUSH (08:11)
[2023-07-06 12:47] LABS: Glucose Point of Care 177 mg/dl (65-105)
--- NOTE | 2023-07-06 13:15 | PM.DS ---
DS: Admitting Diagnosis Discharge Date 07/06/2023 Admitting Diagnosis Abdomen pain DS: Discharge Diagnosis Discharge Diagnosis (1) Acute pancreatitis: Code(s): K85.90 - Acute pancreatitis without necrosis or infection, unspecified Status: Acute (2) Acute cholecystitis: Code(s): K81.0 - Acute cholecystitis Status: Acute (3) Gallstone: Code(s): K80.20 - Calculus of gallbladder without cholecystitis without obstruction Status: Acute (4) Elevated liver enzymes: Code(s): R74.8 - Abnormal levels of other serum enzymes Status: Acute (5) Acute cholecystitis with acute cholangitis: Code(s): K81.0 - Acute cholecystitis; K83.09 - Other cholangitis Status: Acute (6) Uncontrolled type 2 diabetes mellitus: Status: Acute Plan Acute cholecystitis with gallstone Patient had intractable pain, intermittent nausea vomiting POA in the ED Start Zosyn IV US abdomen pelvis shows mildly dilated common duct. Distended gallbladder with gallstones and gallbladder wall thickening, but no sonographic Arauz sign. These findings are consistent with acute cholecystitis. Optimize pain management Start low fat diet. pt appears to be tolerating diet ok to DC. Acute cholangitis Patient has elevated bilirubin, alk-phos, AST ALT, No obvious stone on CT scan Patient may pass stone Patient has leukocytosis, suspecting cholangitis Patient on Zosyn transition to Augmentin at home ok to DC Acute pancreatitis Lipase above 4000 POA Likely resulting from bile duct obstruction Continue fluid resuscitation with normal saline Pain is controlled lipase still over 1400 ok to dc with fluids and lowfat diet UTI Patient has pyuria Patient is on Zosyn transition to augmentin urine culture Gram-negative bacilli Uncontrolled type 2 diabetes Start insulin sliding scale Optimize medication for better diabetes control DS: Summary Hospital Course Hospital Course: Patient is a 57-year-old female with a history of diabetes, hypertension, hyperlipidemia, CKD stage 3 presents the emergency department with chief complaint of epigastric pain.? Patient started have abdomen pain in the night, locating in epigastric region radiating to the back.? Patient has nausea vomiting.? Patient denies fever, chills, chest pain, shortness of breath headache, focal weakness, dysuria.? Patient came to ED for evaluation, in the ED, patient found have elevated liver enzymes with a bilirubin of 1.5 AST of 593 ALT of 334, and CT abdomen pelvis showed evidence of acute pancreatitis, acute cholecystitis with gallstones.? Leukocytosis 10,500 with left shift, UA shows pyuria.? Patient denies chest pain, shortness breast, palpitation, headache, focal weakness, dysuria.? ER physician consulted? Dr. Oshea of GI Dr. Lacey pending surgery and Dr. Vale and the patient is admitted on the hospitalist service Time Spent with Patient Time attestation: Total time spent providing and/or coordinating discharge services:50 minutes on day of DC Exam Narrative: GENERAL: Pleasant, in no acute distress. Well-nourished. - EYES: EOMI. Anicteric. - HENT: Moist mucous membranes. - LUNGS: Clear to auscultation bilaterally, no wheezing, rhonchi, or rales. - CARDIOVASCULAR: Regular rate and rhythm. No murmur. No JVD. - ABDOMEN: Soft, epigastric tender and non-distended. No palpable masses. - EXTREMITIES: No edema. Peripheral pulses 2+. Non-tender. - NEUROLOGIC: No focal neurological deficits. CN II-XII grossly intact. - PSYCHIATRIC: Awake, Alert and oriented x 3. Appropriate mood and affect. - SKIN: No rashes or lesions. Warm. - LYMPH: No cervical lymphadenopathy. DS: Data Data Completed and Pending Labs on day of discharge: Labs from last 24 hours 07/06/23 07/06/23 07/06/23 12:45 05:29 05:18 WBC 5.5 RBC 3.34 L Hgb 10.6 L Hct 32.7 L MCV 97.9 MCH 31.7 MCHC 32.4 RDW 13.3 Plt Count 232 MPV 8
== END 2023-07-06 16:17 | disposition home or self-care (01) | DRG 439 ==
LOC: ANHED 07:07 → ANH3MED 08:08
PROVIDERS: Internal Medicine Gastroenterology; Surgery; Admitting Provider Internal Medicine; Emergency Provider Emergency Medicine; PCP Emergency Medicine; Visit Provider Family Medicine
DX: K85.10 Biliary acute pancreatitis without necrosis or infection (principal); K80.42 Calculus of bile duct with acute cholecystitis without obstruction; N39.0 Urinary tract infection, site not specified; B96.89 Other specified bacterial agents as the cause of diseases classified elsewhere; E11.22 Type 2 diabetes mellitus with diabetic chronic kidney disease; E11.65 Type 2 diabetes mellitus with hyperglycemia; E78.5 Hyperlipidemia, unspecified; I12.9 Hypertensive chronic kidney disease with stage 1 through stage 4 chronic kidney disease, or unspecified chronic kidney disease; N18.30 Chronic kidney disease, stage 3 unspecified; Z87.891 Personal history of nicotine dependence; Z79.84 Long term (current) use of oral hypoglycemic drugs
CPT/HCPCS: 36415; 74177; 76705; 80053; 80076; 81001; 82948; 83690; 85025; 85027; 87040; 87077; 87086; 87186; 93005; 96361; 96372; 96374; 96375; 96376; 99285; C9113; J1644; J2270; J2405; J2543; J7030; Q9967

== ENCOUNTER 2023-07-12 15:19 | Outpatient (CLI) | payer OTHER, SELFPAY ==
[2023-07-12 15:43] LABS: Basophils Absolute Auto 0.1 K/mm3 (0.0-0.1); Basophils Percent Auto 1.1 % (0.2-1.2); Eosinophils Absolute Auto 0.1 K/mm3 (0-0.3); Eosinophils Percent Auto 1.9 % (0-4.4); Hemoglobin 11.7 g/dL (12.0-15.0); Immature Granulocyte Absolute 0.03 K/mm3 (0.00-0.031); Immature Granulocyte Percent A 0.4 % (0-0.5); Lymphocytes Absolute Auto 2.08 K/mm3 (0.9-3.2); Lymphocytes Percent Auto 28.3 % (18.3-44.2); Mean Corpuscular HGB Conc 32.5 g/dl (32-36); Mean Corpuscular Hemoglobin 31.5 pg (26-34); Mean Platelet Volume 8.2 fl (7.4-10.4); Monocytes Absolute Auto 0.6 K/mm3 (0.1-0.6); Monocytes Percent Auto 8.2 % (2.6-8.5); Neutrophils Absolute Auto 4.4 K/mm3 (1.3-6.7); Neutrophils Percent Auto 60.1 % (45.5-73.1); Platelet Count Result 334 k/mm3 (150-375); Red Blood Count 3.71 M/mm3 (4.2-5.4); Red Cell Distribution Width 13.4 % (11.5-14.5); White Blood Count 7.4 K/mm3 (4.5-10.0)
[2023-07-12 15:52] LABS: Alanine Aminotransferase 32 U/L (6-35); Alkaline Phosphatase 94 U/L (38-126); Amylase 84 U/L (30-110); Aspartate Amino Transferase 22 U/L (14-36); Bilirubin,Total 0.2 mg/dL (0.2-1.3); Lipase 789 U/L (23-300)
== END 2023-07-12 15:20 | disposition home or self-care (01) ==
LOC: ANHSURGERY 15:22
PROVIDERS: PCP Emergency Medicine; Visit Provider Surgery
DX: Z01.818 Encounter for other preprocedural examination (principal); K81.0 Acute cholecystitis
CPT/HCPCS: 36415; 80076; 82150; 83690; 85025; 86850; 86900; 86901

== ENCOUNTER 2023-07-14 19:59 | Inpatient (IN) | payer OTHER, SELFPAY ==
[2023-07-11 08:28] VITALS: BMI 39.2
--- NOTE | 2023-07-11 08:33 | PC.NURSE ---
Report to the Outpatient Waiting Room, entrance under the green pavilion located off [facility], at time 12:15 on date 07/14/23. Planned Procedure Time: 2:15. Time changes happen often and if your time is changed the preop area will call you the afternoon before. - You and your visitor will be asked to self-screen and do not enter if you have any COVID symptoms. - A mask is optional within the hospital at this time. Patients may have clear liquids (water, carbonated beverages, clear teas, apple juice) until 3 hours prior to surgery (11:15)with a maximum of 20 ounces. - No food from midnight until time of surgery Take the following medications with a SIP of water the morning of surgery: AUGMENTIN DO NOT STOP ANY OF YOUR OTHER PRESCRIPTION MEDICATIONS PRIOR TO SURGERY ?EXCEPT THE FOLLOWING Medications to discontinue per physician: VITAMINS/SUPPLEMENTS Date to take last dose: NO MORE UNTIL AFTER SURGERY Please no make-up, nail estonian, hairspray, perfume, deodorant, or body powder the day of surgery. No jewelry (including any body piercings) or valuables the day of surgery, leave them at home. Please take a shower or bath the night before, or the morning of, surgery with an antibacterial soap (HIBICLENS). Wear comfortable, loose fitting clothing. - Jewelry must be removed prior to entering the operating room. Rings and piercings that are not removed may be cut off. - The hospital will not accept responsibility for valuables. - Please leave all valuables, including medications, at home the day of surgery. If you are going home after surgery, a licensed minibus driver must drive you home. - NO public transportation without another adult if you receive anesthesia. - We recommend that an adult stay with you for 24 hours following discharge. - We also recommend that you do not drive, make important decision, drink alcoholic beverages, or take any drugs that were not prescribed by your health care provider for at least 24 hours after your discharge time. Follow any additional instructions given to you from your surgeon. If you or anyone in your household have experienced Covid symptoms in the past week, please notify your surgeon or the nurse liaison at the phone number below for possible testing. Telephone instructions given to PT - FRANCISCO PAULA and asked if any additional questions and then verbalized understanding. Patient advised to call surgeon office or pre surgery nurse liaison [phone] if any additional questions.
[2023-07-14] VITALS (13 sets, daily range): BP systolic 78–122; BP diastolic 46–76; PULSE 63–90; RESP 10–18; TEMP 35.9–36.5; O2SAT 94–100; BMI 36.5
--- NOTE | ~2023-07-14 | XR_ITS ---
EXAMINATION: XR cholangiogram surg 1st inj DATE: 07/14/2023 17:39 INDICATION: Cholecystitis. TECHNIQUE: 146 fluoroscopic images of the right upper quadrant were obtained during intraoperative ch olangiography performed by the surgeon. I was not present in the operating room. Fluoroscopy exposure time was 51 seconds. COMPARISON: CT abdomen and pelvis 07/02/2023 FINDINGS: There is a catheter in the cystic duct. There is intrahepatic and extrahepatic biliary duct dilatation. There is a stone in the distal common bile duct measuring approximately 4 mm. Contrast p asses to the duodenum. IMPRESSION: 1. 4 mm stone in the distal common bile duct with intrahepatic and extrahepatic biliary duct dilatati on. Reviewed, dictated and finalized at location E. IMPRESSION: 1. 4 mm stone in the distal common bile duct with intrahepatic and extrahepatic biliary duct dilatation.
--- NOTE | ~2023-07-14 | XR_ITS ---
EXAMINATION: XR ERCP DATE: 07/19/2023 09:14 INDICATION: Choledocholithiasis. TECHNIQUE: 2 spot fluoroscopic images of the right upper quadrant were obtained during endoscopic ret rograde cholangiopancreatography (ERCP). Fluoroscopy exposure time was 68 seconds. COMPARISON: Cholangiogram 07/14/2023 FINDINGS: The endoscope is in the second portion the duodenum. There is contrast opacification of the common duct. There are surgical clips from cholecystectomy. IMPRESSION: 1. No stone identified. Please refer to the ERCP procedure note for additional details. Reviewed, dictated and finalized at location A.
--- NOTE | 2023-07-14 08:56 | WPDANESEPPF ---
Anes - Initial Pre Proc Eval Procedure: Operation Date: 07/14/23 14:15 Proposed Procedures p Laparoscopic Cholecystectomy with Intraoperative Cholangiogram - Jim Lacey MD Date/Time: 07/14/23 08:56 Surgeon: Jim Lacey MD Pre Op Diagnosis: acute cholecystitis Patient Data Age: 58 Gender: F Height: 1.61 m Weight: 102.1 kg Allergies Allergy/AdvReac Type Severity Reaction Status Date / Time No Known Allergies Allergy Verified 07/25/23 10:09 Home Medications Medication Instructions Recorded Confirmed Type ergocalciferol (vitamin D2) 1,250 1,250 mcg PO DAILY 08/05/20 07/25/23 History mcg (50,000 unit) capsule (Vitamin D2) glimepiride 1 mg tablet 1 mg PO DAILY 08/05/20 07/25/23 History losartan 25 mg tablet 25 mg PO DAILY 08/05/20 07/25/23 History metformin 500 mg tablet 500 mg PO BID 08/05/20 07/25/23 History rosuvastatin 5 mg tablet 5 mg PO DAILY 08/05/20 07/25/23 History aspirin 81 mg chewable tablet 81 mg PO DAILY 03/10/21 07/25/23 History ferrous sulfate 325 mg (65 mg 325 mg PO DAILY #30 tabs 07/20/23 07/25/23 Rx iron) tablet Patient hx anesthesia problems: none Family hx anesthesia problems: none Results Review: All pre-operative results and documents have been reviewed as part of the pre-operative evaluation. PMFSH Past Medical History Medical History Diabetes Diastasis of rectus abdominis High blood pressure High cholesterol HAWA (obstructive sleep apnea) Surgical History Surgical History (Updated 07/25/23 @ 10:18 by Angie Barreto MA) History of x2 History of eye surgery x2 History of tubal ligation x2 Hx laparoscopic cholecystectomy o 07/14/23 DAPHNE Family History Family History Mother Diabetes mellitus Grandparent Diabetes mellitus Social History Social History Smoking packs per day: 1.5 Smoking cigarettes per day: 30.0 Years smoked: 22 Smoking pack-years: 33.00 Smoking status: Former smoker Second hand tobacco smoke exposure: Yes Smoking end date: 11/14/95 Alcohol intake: former Substance use: never Substance use type: does not use Lack of Transportation: No Lack of Food: Never True Current Housing: I Have Housing Concerned About Future Housing: No Difficulty Paying Gas/Electric Bills: No Difficulty Paying for Meds: No Currently Unemployed: No Education: High School Diploma/GED Difficulty w/ Childcare or Family Care: No Living arrangements: with family Occupation/Education: occupation 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 Informed Consent: The patient's anesthetic plan and its attendant risks and benefits were discussed with the patient/family/POA. Questions were solicited and answers provided to the satisfaction of the patient/family/POA.
[2023-07-14] MEDS: ACETAMINOPHEN 500 MG TABLET 1000 MG PO (12:59)
[2023-07-14] MEDS: LACTATED RINGERS 1,000 ML 30 ML IV CONT ×4 (13:00→19:17)
[2023-07-14] MEDS: KETOROLAC 15 MG/ML VIAL (*BKC) IV PUSH (13:01)
[2023-07-14 13:02] LABS: Glucose Point of Care 121 mg/dl (65-105)
[2023-07-14] MEDS: ceFAZolin 2 GM/D5W 50 ML 2 GM/50 ML BAG IVPB (14:58)
--- NOTE | 2023-07-14 15:09 | WPDHPUPDATE1 ---
History and Physical Update Update Date/Time: 07/14/23 15:09 History and Physical has been reviewed, including an updated exam of the patient. There are NO changes in the patient's condition. Risks, benefits, and alternatives have been discussed and questions answered. Patient agrees to proceed with procedure.
[2023-07-14] MEDS: BUPIVACAINE/EPINEPHRINE 0.5% 50 ML VIAL INFILTRATE (15:37)
[2023-07-14 18:43] LABS: Hematocrit 39.2 % (37.0-47.0); Hemoglobin 12.7 g/dL (12.0-15.0)
[2023-07-14 18:44] LABS: Glucose Point of Care 265 mg/dl (65-105)
--- NOTE | 2023-07-14 19:13 | PM.OP ---
Procedure Note - Brief Procedure Note - Brief Date of procedure: 07/14/23 Biliary pancreatitis Post-op diagnosis: Other (Biliary pancreatitis, intra-abdominal bleeding) Procedure performed: Attempted laparoscopic cholecystectomy, open cholecystectomy with intraoperative cholangiogram Surgeon: Jim Lacey MD Anesthesia: GETA and local Findings: Patient had significant bleeding due to perigastric vessel injury on placement of the initial epigastric trocar. Patient had anterior abdominal wall adhesions that brought these structures to a position that this could happen. After conversion to open surgery, the bleeding had stopped. No injury to the stomach or colon were noted. Patient had open cholecystectomy. Intraoperative cholangiogram showed a distal common bile duct stone. Description of procedure: On placement of the initial trocar, large amounts of venous bleeding were noted. It was not clear where this was coming from but it was not going to be controlled laparoscopically. Conversion to open surgery was performed. Bleeding site appeared to be a perigastric vessel. The bleeding had stopped. Blood and clot were evacuated. Gallbladder was removed open. Intraoperative cholangiogram showed a distal common bile duct stone. Patient had layered wound closure and transferred to recovery in stable condition. She received 2 units packed cells during surgery. Estimated blood loss (mL): -1,000 Drains: No Packing: No Pathology: Yes (Gallbladder) Complications: Other complications (Intraoperative bleeding) Condition: Stable Disposition: PACU
--- NOTE | 2023-07-14 19:19 | SUR.OPER ---
Attempted Laparoscopic Jeane with IOC's. Converted to Open Jeane at approximately 15:40. This RN called for additional assistance with opening and transitioning to open procedure. Order for 2 Units PRBC ordered. Notified lab of blood order. See TAR for Blood Administration. This RN noted [employer] was down upon attempting to chart 2nd Unit of Blood at 17:25. Second Unit of Blood was back charted after procedure. Used Angie Pedraza RN's pin to overide charting, but physically confirmed blood product/patient with Nba Deshpande CRNA prior to administration in the operating room.
[2023-07-14] MEDS: ONDANSETRON INJ 4 MG/2 ML VIAL IV PUSH (20:15)
[2023-07-14] MEDS: LACTATED RINGERS 1,000 ML 100 ML IV CONT (21:00)
--- NOTE | 2023-07-14 21:41 | ADMGEN ---
This patient, Lana Martinez, was admitted to 2 Medical Room 252-. Patient/family oriented to hospital policies and general routines including ID bracelet, bed and alarms, visiting hours, pain management, procedures, bathroom and other care routines, personal items, smoking policy, room service/diet, and visiting hours. Information on how to activate the Rapid Response Team has been discussed. Patient/Family are encouraged to report perceived risks to care and to ask questions if they do not understand what they are told or what they should do.
[2023-07-14] MEDS: MORPHINE SULFATE (*CRX) 2 MG/ML INJ IV PUSH (21:56)
[2023-07-15 00:37] VITALS: BP 93/59; PULSE 82; RESP 16; TEMP 36.5; O2SAT 100
[2023-07-15] MEDS: MORPHINE SULFATE (*CRX) 4 MG/ML INJ IV PUSH ×4 (03:15→23:50)
[2023-07-15 04:21] LABS: Glucose Point of Care 262 mg/dl (65-105)
[2023-07-15 04:50] VITALS: BP 123/72; PULSE 87; RESP 16; TEMP 36.6; O2SAT 100
[2023-07-15 05:27] LABS: Hematocrit 32.3 % (37.0-47.0); Hemoglobin 10.6 g/dL (12.0-15.0); Mean Corpuscular HGB Conc 32.8 g/dl (32-36); Mean Corpuscular Hemoglobin 30.6 pg (26-34); Mean Corpuscular Volume 93.4 fl (80-100); Mean Platelet Volume 8.8 fl (7.4-10.4); Platelet Count Result 301 k/mm3 (150-375); Red Blood Count 3.46 M/mm3 (4.2-5.4); Red Cell Distribution Width 15.9 % (11.5-14.5); White Blood Count 19.2 K/mm3 (4.5-10.0)
[2023-07-15 05:41] LABS: Alanine Aminotransferase 79 U/L (6-35); Alkaline Phosphatase 70 U/L (38-126); Anion Gap 11 mmol/L (8-16); Aspartate Amino Transferase 86 U/L (14-36); Bilirubin,Total 0.5 mg/dL (0.2-1.3); Blood Urea Nitrogen 33 mg/dL (7-17); Calcium 8.3 mg/dL (8.4-10.2); Carbon Dioxide 23 mmol/L (22-30); Chloride 103 mmol/L (98-107); Estimated CRCL calculation 36 ml/min; Estimated Glomerular Filt Rate 31; Glucose 239 mg/dL (65-110); Potassium 4.6 mmol/L (3.4-5.0); Sodium 137 mmol/L (137-145)
[2023-07-15] MEDS: LACTATED RINGERS 1,000 ML 100 ML IV CONT (07:57)
[2023-07-15 08:31] LABS: Glucose Point of Care 191 mg/dl (65-105)
--- NOTE | 2023-07-15 09:12 | PM.PNGS ---
Progress Note: A&P Assessment and Plan (1) Choledocholithiasis with chronic cholecystitis: Code(s): K80.44 - Calculus of bile duct with chronic cholecystitis without obstruction Status: Acute Assessment and Plan: Dr. Dickey has been consulted. Will keep patient NPO until he has had a chance to evaluate in case he wishes to proceed with ERCP. (2) Intraoperative hemorrhage and hematoma of a digestive system organ or structure complicating a digestive system procedure: Code(s): K91.61 - Intraoperative hemorrhage and hematoma of a digestive system organ or structure complicating a digestive system procedure Status: Acute Assessment and Plan: Bleeding controlled with open surgery and hematoma evacuated. Appeared to be due to trocar related injury of a perigastric vessel adherent to the anterior abdominal wall. No evidence of further bleeding. (3) Anemia due to blood loss, acute: Code(s): D62 - Acute posthemorrhagic anemia Status: Acute Assessment and Plan: Received 2 units packed cells in the operating room. Will follow blood counts serially. No evidence of persistent bleeding. (4) Biliary acute pancreatitis without necrosis or infection: Code(s): K85.10 - Biliary acute pancreatitis without necrosis or infection Status: Resolved Assessment and Plan: This was patient's original diagnosis when admitted 07/02/2023 Subjective Subjective Date/Time Seen: 07/15/23 09:12 Post Op day: 1 Patient reports: still having pain, tolerating liquids well, no flatus and no bowel movement Exam Const: General: comfortable and no acute distress Orientation/consciousness: patient oriented x3 GI: Inspection: incision (Dressing dry and intact) and obesity GI Palp: Yes Soft to palpation, Yes Tenderness to palpation present (GI) (Diffusely tender), No Guarding due to palpation present (GI) and No Rebound tenderness present Auscultation: normal bowel sounds Neuro: General: patient oriented x3 and no focal motor deficits Extrem: General: no calf tenderness and no edema Psych: Affect: normal affect Insight: Good insight present (Psych) Judgement: Good judgement present (Psych) Objective Data Vital Signs Vital Signs: Vital Signs - 24 hr 07/14/23 12:23 07/14/23 18:24 07/14/23 18:35 Temperature 36.5 C 36.5 C Pulse Rate 64 90 78 Respiratory Rate 18 10 L 18 Blood Pressure 119/76 78/60 L 82/53 L Pulse Oximetry 100 100 100 Oxygen Delivery Room Air Simple Face Mask Simple Face Mask Oxygen Flow Rate 8 8 07/14/23 18:50 07/14/23 19:05 07/14/23 19:20 Temperature Pulse Rate 82 67 70 Respiratory Rate 18 16 16 Blood Pressure 87/57 L 85/47 L 113/52 L Pulse Oximetry 96 99 99 Oxygen Delivery Room Air Room Air Room Air Oxygen Flow Rate 07/14/23 19:35 07/14/23 19:50 07/14/23 19:59 Temperature Pulse Rate 63 65 64 Respiratory Rate 14 14 12 Blood Pressure 100/52 L 122/57 L 102/64 Pulse Oximetry 100 100 99 Oxygen Delivery Room Air Room Air Room Air Oxygen Flow Rate 07/14/23 19:59 07/14/23 20:14 07/14/23 20:44 Temperature 36.4 C L 36.1 C L 35.9 C L Pulse Rate 74 65 73 Respiratory Rate 16 16 16 Blood Pressure 112/46 L 81/53 L 100/55 L Pulse Oximetry 94 97 99 Oxygen Delivery Oxygen Flow Rate 07/14/23 22:18 07/14/23 21:44 07/15/23 00:37 Temperature 36.3 C L 36.5 C Pulse Rate 73 72 82 Respiratory Rate 16 14 16 Blood Pressure 114/57 L 93/59 L Pulse Oximetry 99 100 100 Oxygen Delivery Room Air Oxygen Flow Rate 07/15/23 04:50 Temperature 36.6 C Pulse Rate 87 Respiratory Rate 16 Blood Pressure 123/72 Pulse Oximetry 100 Oxygen Delivery Oxygen Flow Rate Intake/Output Intake/Output: Intake & Output 07/12/23 07/13/23 07/14/23 07/15/23 23:59 23:59 23:59 23:59 Intake Total 2450 1000 Balance 2450 1000 Meds/Results Medications: Active Medications Generic Name Dose Route Start Last Admin Trade Name Freq
[2023-07-15] MEDS: SODIUM CHLORIDE 0.9% IV 1,000 ML 125 ML IV CONT ×2 (09:18→17:57)
[2023-07-15 10:00] VITALS: BP 115/66; PULSE 92; RESP 17; TEMP 36.6; O2SAT 100
--- NOTE | 2023-07-15 10:02 | WPDANESPN ---
Anes - Prog Note Post-Op Date/Time: 07/15/23 10:02 Cardiovascular status: normal Respiratory status: normal Airway patency: baseline Mental status: baseline Post-Op hydration status: normal Vital Signs: Last Vital Signs Temp 36.6 C 07/15/23 04:50 Pulse 87 07/15/23 04:50 Resp 16 07/15/23 04:50 BP 123/72 07/15/23 04:50 Pulse Ox 100 07/15/23 04:50 O2 Del Method Room Air 07/14/23 22:18 O2 Flow Rate 8 07/14/23 18:35 Pain Score (VAS): 0 I/O: Intake & Output 07/14/23 07/15/23 07/15/23 23:59 07:59 15:59 Intake Total 2400 1000 Balance 2400 1000 Laboratory Tests 07/15/23 04:43 07/15/23 04:43 07/14/23 07/14/23 07/14/23 12:58 15:58 18:32 WBC RBC Hgb Hct MCV MCH MCHC RDW Plt Count MPV Sodium Potassium Chloride Carbon Dioxide Anion Gap BUN Creatinine Estim Creat Clear Calc Estimated GFR Glucose POC Capillary Glucose 121 H 265 H Calcium Total Bilirubin AST ALT Alkaline Phosphatase Total Protein Albumin Blood Type Cancelled Rho(D) Type Cancelled Antibody Screen Cancelled Crossmatch See Detail 07/14/23 07/15/23 07/15/23 18:39 00:30 04:43 WBC 19.2 H RBC 3.46 L Hgb 12.7 10.6 L Hct 39.2 32.3 L MCV 93.4 MCH 30.6 MCHC 32.8 RDW 15.9 H Plt Count 301 MPV 8.8 Sodium 137 Potassium 4.6 Chloride 103 Carbon Dioxide 23 Anion Gap 11 BUN 33 H D Creatinine 1.70 H Estim Creat Clear Calc 36 Estimated GFR 31 L Glucose 239 H POC Capillary Glucose 262 H Calcium 8.3 L Total Bilirubin 0.5 AST 86 H ALT 79 H Alkaline Phosphatase 70 Total Protein 6.0 L Albumin 3.0 L Blood Type Rho(D) Type Antibody Screen Crossmatch 07/15/23 08:28 WBC RBC Hgb Hct MCV MCH MCHC RDW Plt Count MPV Sodium Potassium Chloride Carbon Dioxide Anion Gap BUN Creatinine Estim Creat Clear Calc Estimated GFR Glucose POC Capillary Glucose 191 H Calcium Total Bilirubin AST ALT Alkaline Phosphatase Total Protein Albumin Blood Type Rho(D) Type Antibody Screen Crossmatch Post-procedural complaints: none Patient Feedback: Patient satisfied with anesthetic care.
[2023-07-15 12:07] LABS: Glucose Point of Care 185 mg/dl (65-105)
[2023-07-15] MEDS: GLIMEPIRIDE 1 MG TABLET PO (12:22)
[2023-07-15] MEDS: ROSUVASTATIN 5 MG TABLET PO (12:23)
[2023-07-15] MEDS: metFORMIN HCL 500 MG TABLET PO ×2 (12:23→17:56)
[2023-07-15] MEDS: ASPIRIN 81 MG CHEWABLE TABLET PO (12:23)
[2023-07-15] MEDS: LOSARTAN POTASSIUM 25 MG TABLET PO (12:23)
--- NOTE | 2023-07-15 13:37 | PM.IMCN ---
Assessment and Plan Assessment and plan (1) Anemia due to blood loss, acute: Code(s): D62 - Acute posthemorrhagic anemia Status: Acute (2) Intraoperative hemorrhage and hematoma of a digestive system organ or structure complicating a digestive system procedure: Code(s): K91.61 - Intraoperative hemorrhage and hematoma of a digestive system organ or structure complicating a digestive system procedure Status: Acute (3) Choledocholithiasis with chronic cholecystitis: Code(s): K80.44 - Calculus of bile duct with chronic cholecystitis without obstruction Status: Acute (4) Essential hypertension: Code(s): I10 - Essential (primary) hypertension Status: Chronic (5) Type 2 diabetes mellitus: Code(s): E11.9 - Type 2 diabetes mellitus without complications Status: Chronic (6) Biliary acute pancreatitis without necrosis or infection: Code(s): K85.10 - Biliary acute pancreatitis without necrosis or infection Status: Resolved Plan # cholecystitis with choledocholithiasis # mild transaminitis -postop day 1 open cholecystectomy with intraoperative cholangiogram by Dr. Lacey -plan for ERCP today with Dr. Dickey based on yesterday's intraoperative cholangiogram showing 4mm distal CBD stone -pain control: P.r.n. Tylenol, [place], morphine -antiemetic Zofran -Perioperative antibiotics Ancef -IV fluids LR 100 cc/hour -will trend leukocytosis -mild transaminitis consistent choledocholithiasis # intraoperative bleeding -EBL 1L -hemoglobin 10.6, continue to monitor. Hemoglobin is 12.7 before surgery # acute kidney injury on likely CKD stage IIIA -creatinine elevated 1.7, likely prerenal in, continue to monitor. 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 -continue IVF # chronic conditions -type 2 diabetes, non-insulin: Glimepiride, metformin. will add Accu-Cheks a.c. HS, hypoglycemia protocol, hemoglobin A1c, low-dose sliding scale insulin for while inpatient -hyperlipidemia: Aspirin, rosuvastatin -essential hypertension: Losartan -vitamin-D deficiency: On supplement Diet: NPO DVT prophylaxis: Defer Lovenox to surgery team Code status: Full code Disposition: Plan for ERCP, discharge in next day or 2 HPI Data of Consult Consult date: 07/15/23 Requesting Physician: Jim Lacey MD Primary Care Provider: Lucas Garcia MD Consult Narrative Narrative: Lana Martinez is a 58 year old female with past medical history type 2 diabetes, essential hypertension, hyperlipidemia who presents on 07/14/2023 for cholecystitis. Patient was hospitalized 07/02/2023-07/06 with acute cholecystitis with gallstone, acute cholangitis, acute pancreatitis. She was treated with IV Zosyn and discharged home on Augmentin. She returned on 07/14/2023 for laparoscopic cholecystectomy which transition to open cholecystectomy with intraoperative cholangiogram by Dr. Lacey due to intra-abdominal bleed. Patient is currently NPO for ERCP later today with Dr. Dickey. Hospitalist service consulted for medical management of chronic conditions. Patient has not had any issues with her diabetes or cholesterol. She follows routinely with her PCP. Patient is otherwise fairly active and lives with . Patient has fever, chills, nausea vomiting or diarrhea. She endorses abdominal pain. Review of Systems Review of Systems: Constitutional: No Fever, No Chills, No Night Sweats, No Fatigue, No Malaise ENT/Mouth: No Hearing Changes, No Ear Pain, No Nasal Congestion, No Sinus Pain, No Hoarseness, No sore throat, No Rhinorrhea, No Swallowing Difficulty Eyes: No Eye Pain, No Redness, No Vision Changes Cardiovascular: No Chest Pain, No Palpitations, No Dyspnea on Exertion, No Orthopnea, No Claudication, No Edema Respiratory: No Cough, No Sputum, No Wheezing, No Shortness of Breath Gastrointestinal: Endorses abdominal pain, no nausea no vomiting Genitourinary: No Dysuria, No Urinary F
[2023-07-15 14:55] LABS: Hematocrit 29.2 % (37.0-47.0); Hemoglobin 9.4 g/dL (12.0-15.0)
--- NOTE | 2023-07-15 15:40 | WPDGICN ---
Assessment and Plan Assessment and plan (1) Choledocholithiasis with chronic cholecystitis: Code(s): K80.44 - Calculus of bile duct with chronic cholecystitis without obstruction Status: Acute Assessment and Plan: open cholecystectomy after intraabdominal bleeding that was controlled IOC found filling defect in distal bile duct c/w stone I prefer to wait 3-4 days since normally we perform ERCP in prone position and she was just treated with intraabdominal bleeding/hematoma ok to start liquid diet and monitor (2) Intraoperative hemorrhage and hematoma of a digestive system organ or structure complicating a digestive system procedure: Code(s): K91.61 - Intraoperative hemorrhage and hematoma of a digestive system organ or structure complicating a digestive system procedure Status: Acute Assessment and Plan: treated by surgery monitor for more signs of bleeding (3) Anemia due to blood loss, acute: Code(s): D62 - Acute posthemorrhagic anemia Status: Acute Assessment and Plan: received blood transfusion trend h/h (4) Biliary acute pancreatitis without necrosis or infection: Code(s): K85.10 - Biliary acute pancreatitis without necrosis or infection Status: Resolved Assessment and Plan: during recent hospitalization monitor (5) Type 2 diabetes mellitus: Code(s): E11.9 - Type 2 diabetes mellitus without complications Status: Chronic (6) Elevated liver enzymes: Code(s): R74.8 - Abnormal levels of other serum enzymes Status: Inactive Assessment and Plan: mild elevated liver enzymes, probably from recent cholecystectomy with bleeding and also could be from distal stone in bile duct monitor GI Consult Note Consult date/time: 07/15/23 15:40 Reason for consult: abnormal IOC c/w choledocholithiasis HPI: Lana Martinez is a 58 year old female with recent hospitalization for GS pancreatitis and cholecystitis 07/[address] Oshea, treated medically and yesterday came back for cholecystectomy. She had significant bleeding due to perigastric vessel injury on placement of the initial epigastric trocar, surgery had to be converted to open surgery. No injury to the stomach or colon were noted.? Patient had open cholecystectomy.? Intraoperative cholangiogram showed a distal common bile duct stone. Patient received yesterday blood transfusion, hgb 9-10, she has pain from incision. We are called to evaluate and consider ERCP. Review of Systems Constitutional: Constitutional: Denies chills Eyes: Eyes: Denies blurry vision ENT: Reports Normal hearing present Cardiovascular: Cardiovascular: Denies chest pain Respiratory: Respiratory: Denies cough Gastrointestinal: Gastrointestinal: Reports abdominal pain Genitourinary: Genitourinary: Denies urinary urgency Musculoskeletal: Musculoskeletal: Denies arthralgias Integumentary/Breasts: Skin/Breast: Denies rash Neurologic: Denies Abnormal speech present Psychiatric: Psychiatric: Denies behavioral changes [facility] Past Medical History Medical History Diabetes Diastasis of rectus abdominis High blood pressure High cholesterol [place] (obstructive sleep apnea) Surgical History Surgical History History of x2 History of eye surgery x2 History of tubal ligation x2 Family History Family History Mother Diabetes mellitus Grandparent Diabetes mellitus Social History Social History Smoking packs per day: 1.5 Smoking cigarettes per day: 30.0 Years smoked: 22 Smoking pack-years: 33.00 Smoking status: Former smoker Second hand tobacco smoke exposure: Yes Smoking end date: 11/14/95 Alcohol intake: former Substance
--- NOTE | 2023-07-15 17:02 | W.PM.PROC2 ---
Procedure Note - Detailed Date of Procedure 07/15/23 Pre-op Diagnosis Biliary pancreatitis Post-op Diagnosis Other (Biliary pancreatitis, choledocholithiasis, intra-abdominal hemorrhage) Procedure Performed Attempted laparoscopic cholecystectomy converted to open cholecystectomy with intraoperative cholangiogram. Surgeon Jim Lacey MD [employer] Justin Guzman Anesthesia General and Local Indications Patient was recently in the hospital with acute biliary pancreatitis. She was admitted on 07/02/2023. This improved with analgesics and bowel rest. She was able to be discharged and is returned to surgery now for laparoscopic cholecystectomy with intraoperative cholangiogram. We attempted to get an MRCP which she was in the hospital previously but the patient has some claustrophobia and was unable to complete this test. Findings Patient had severe hemorrhage after placement of the 1st trocar. About a 1000 cc of blood were lost. At laparotomy, the bleeding had stopped but it appeared that a Emerson gastric vessel had been injured. The stomach and omentum were adherent to the anterior abdominal wall high in the abdomen making them potentially injured with the initial epigastric trocar placement. The gallbladder showed mild chronic inflammation and did have stones. Intraoperative cholangiogram showed an obstructing distal common bile duct stone with biliary ductal dilatation. Patient was transfused 2 units of packed cells during the surgery. Although there were some periods of time where her blood pressure had dropped and pressors had to be used, she was quite stable during the majority of the surgery particularly the last half or 2/3. Description of Procedure Patient was taken to surgery and induced into general anesthesia. The abdomen was prepped and draped. The initial trocar was planned for the epigastric area just to the right of midline. Local was infiltrated an incision was made. A 5 mm applied Medical optical trocar was then advanced through the abdominal wall. This seemed to be normal but blood was noted on the into the trocar. We were not in the abdominal cavity. I re positioned and introduced the 5 mm trocar to where it was likely intraperitoneal. When the camera was placed we did notice quite a bit of bleeding. The source was not evident. We went ahead and placed the remaining trocars in the usual fashion and exchanged this 5 mm port for a 10 11 port under direct visualization. At this point there was quite a bit of blood in the abdomen. We suctioned a lot of it away. I then looked for a source of bleeding. This seemed to be in the area of the omentum. The source appeared to be close to both the stomach and the transverse colon. There were several adhesions of the anterior abdominal wall primarily omentum. I continued to look for source of bleeding and used laparoscopic instruments to clamp places that appeared to be a source. None the less the bleeding appeared to be persistent. I left 1 laparoscopic clamp on some omentum as it seemed to be diminishing the ooze of blood. The blood did not appear to be arterial but rather venous. We then removed all the laparoscopic instruments other than the 1 with the clamp. An open laparotomy tray was then brought into the field. A right subcostal incision was made incorporating the initial epigastric trocar into the incision. We dissected through the subcutaneous and the anterior rectus fascia. Cautery was used for hemostasis. Dissection was then carried through the posterior rectus fascia and extended laterally through the obliques and the transversus. The abdomen was then explored. There was a lot of blood still in the abdomen. We suctioned this away. There was quite a bit of clot that I evacuated manually. I then freed up more omental adhesions so the omentum was mobile. There was an area near the stomach in the gastrocolic ligament that appeared to be the source of bleeding. There was a r
[2023-07-15 17:19] LABS: Glucose Point of Care 132 mg/dl (65-105)
[2023-07-15 20:08] VITALS: BP 135/62; PULSE 92; RESP 20; TEMP 37.2; O2SAT 100
[2023-07-15 20:41] LABS: Glucose Point of Care 139 mg/dl (65-105)
[2023-07-16 05:32] VITALS: BP 128/63; PULSE 93; RESP 20; TEMP 37.1; O2SAT 98
[2023-07-16] MEDS: SODIUM CHLORIDE 0.9% IV 1,000 ML 125 ML IV CONT (06:34)
[2023-07-16 06:47] LABS: Hematocrit 26.8 % (37.0-47.0); Hemoglobin 8.6 g/dL (12.0-15.0); Mean Corpuscular HGB Conc 32.1 g/dl (32-36); Mean Corpuscular Hemoglobin 30.7 pg (26-34); Mean Corpuscular Volume 95.7 fl (80-100); Mean Platelet Volume 8.7 fl (7.4-10.4); Platelet Count Result 250 k/mm3 (150-375); Red Cell Distribution Width 15.6 % (11.5-14.5); White Blood Count 11.3 K/mm3 (4.5-10.0)
[2023-07-16 06:54] LABS: Alanine Aminotransferase 45 U/L (6-35); Albumin Level 2.9 g/dL (3.5-5.1); Alkaline Phosphatase 75 U/L (38-126); Anion Gap 4 mmol/L (8-16); Aspartate Amino Transferase 31 U/L (14-36); Bilirubin,Total 0.6 mg/dL (0.2-1.3); Blood Urea Nitrogen 27 mg/dL (7-17); Calcium 8.2 mg/dL (8.4-10.2); Carbon Dioxide 24 mmol/L (22-30); Chloride 108 mmol/L (98-107); Estimated CRCL calculation 38 ml/min; Estimated Glomerular Filt Rate 33; Glucose 161 mg/dL (65-110); Potassium 4.3 mmol/L (3.4-5.0); Sodium 136 mmol/L (137-145)
[2023-07-16] MEDS: MORPHINE SULFATE (*CRX) 4 MG/ML INJ IV PUSH ×2 (07:33→20:45)
[2023-07-16 07:39] LABS: Hemoglobin A1C 6.2 % (<5.7)
[2023-07-16 08:32] LABS: Glucose Point of Care 150 mg/dl (65-105)
--- NOTE | 2023-07-16 08:35 | PM.IMPN ---
Progress Note: A&P Assessment and Plan (1) Intraoperative hemorrhage and hematoma of a digestive system organ or structure complicating a digestive system procedure: Code(s): K91.61 - Intraoperative hemorrhage and hematoma of a digestive system organ or structure complicating a digestive system procedure Status: Acute Assessment and Plan: -EBL 1L during cholecystectomy -thought to be injury of a perigastric vessel that was cauterized without evidence of further bleed. -received 2 units of PRBCs in operating -hemoglobin 8.6, continue to monitor. Hemoglobin is 12.7 before surgery. -serial H&H bid (2) Anemia due to blood loss, acute: Code(s): D62 - Acute posthemorrhagic anemia Status: Acute Assessment and Plan: See above Trend H&H (3) Choledocholithiasis with chronic cholecystitis: Code(s): K80.44 - Calculus of bile duct with chronic cholecystitis without obstruction Status: Acute Assessment and Plan: -postop day 2 open cholecystectomy with intraoperative cholangiogram by Dr. Lacey -plan for ERCP a couple days with Dr. Dickey based on intraoperative cholangiogram showing 4mm distal CBD stone -pain control: P.r.n. Tylenol, [place], morphine -antiemetic Zofran -Perioperative antibiotics Ancef -will trend leukocytosis -mild transaminitis consistent choledocholithiasis (4) Biliary acute pancreatitis without necrosis or infection: Code(s): K85.10 - Biliary acute pancreatitis without necrosis or infection Status: Resolved Assessment and Plan: Patient's original diagnosis. (5) TOMER (acute kidney injury): Code(s): N17.9 - Acute kidney failure, unspecified Status: Acute Assessment and Plan: -creatinine elevated 1.6, likely prerenal in, continue to monitor. 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 (6) Essential hypertension: Code(s): I10 - Essential (primary) hypertension Status: Chronic Assessment and Plan: Continue losartan (7) Type 2 diabetes mellitus: Code(s): E11.9 - Type 2 diabetes mellitus without complications Status: Chronic Assessment and Plan: Insulin Lispro sliding scale, Accu-checks qAcHS Hold metformin Initiate hypoglycemic precautions HgbA1c 6.2 Plan chronic conditions -hyperlipidemia: Aspirin, rosuvastatin -essential hypertension: Losartan -vitamin-D deficiency: On supplement Subjective Date/time seen: 07/16/23 08:35 Interval history: Patient doing good today she does complain of some puffiness in her hands and feet. Due to this will discontinue fluids at this time and General surgery agrees. She does have some abdominal pain in the right upper quadrant near her incision. Abdominal pain is exacerbated by deep breathing. She is tolerating her diet well. She has not had bowel movement but is passing gas Exam Narrative: GENERAL: Comfortable, no acute distress HENMT: moist mucous membranes EYES: EOM intact b/l NECK: no lymphadenopathy RESPIRATORY: clear to auscultation CARDIO: RRR GI: soft, right upper quadrant tenderness, bowel sounds present, bandages dry and intact SKIN: no rashes EXTREMITIES: no edema, redness or tenderness Objective Data Vital Signs Vital Signs: Vital Signs - 24 hr 07/15/23 10:00 07/15/23 09:00 07/15/23 20:08 Temperature 97.8 F 98.9 F Pulse Rate 92 92 Respiratory Rate 17 20 Blood Pressure 115/66 135/62 Pulse Oximetry 100 100 Oxygen Delivery Room Air 07/15/23 20:00 07/16/23 05:32 Temperature 98.7 F Pulse Rate 93 Respiratory Rate 20 Blood Pressure 128/63 Pulse Oximetry 98 Oxygen Delivery Room Air Intake/Output Intake/Output: Intake & Output 07/13/23 07/14/23 07/15/23 07/16/23 23:59 23:59 23:59 23:59 Intake Total 2450 2420 1000 Balance 2450 2420 1000 Meds/Results Medications: Active Medications Generic Name Dose Route Start Last Admin
--- NOTE | 2023-07-16 09:03 | WPDGIPROGNO ---
Progress Note: A&P Assessment and Plan (1) Intraoperative hemorrhage and hematoma of a digestive system organ or structure complicating a digestive system procedure: Code(s): K91.61 - Intraoperative hemorrhage and hematoma of a digestive system organ or structure complicating a digestive system procedure Status: Acute Assessment and Plan: trend h/h, slowly trending down (2) Choledocholithiasis with chronic cholecystitis: Code(s): K80.44 - Calculus of bile duct with chronic cholecystitis without obstruction Status: Acute Assessment and Plan: probably ercp next Tuesday based on clinical course will be challenging to do earlier since she has to be positioned in prone position and she is quite tender from surgical incision (3) Biliary acute pancreatitis without necrosis or infection: Code(s): K85.10 - Biliary acute pancreatitis without necrosis or infection Status: Resolved Assessment and Plan: this was the cause of cholecystectomy and found to have filling defect in bile duct using IOC (4) Anemia due to blood loss, acute: Code(s): D62 - Acute posthemorrhagic anemia Status: Acute Assessment and Plan: monitor Subjective Date/time seen: 07/16/23 09:03 Interval history: still with abdominal discomfort from recent surgery, on liquid diet Review of Systems Review of Systems: All systems reviewed & are unremarkable except as noted in HPI and below Exam Const: General: no acute distress Orientation/consciousness: patient oriented x3 Other: c/o abdominal pain- no major changes HENMT: Face/Nose/Sinus: Normal nares present Eyes: Sclera: sclerae normal Neck: Neck: supple Resp: Effort & Inspection: normal respiratory effort Cardio: Rate: regular rate GI: Inspection: incision (Dressing dry and intact) and obesity GI Palp: Yes Soft to palpation, Yes Tenderness to palpation present (GI) (Diffusely tender, dressing in place), No Guarding due to palpation present (GI) and No Rebound tenderness present Auscultation: normal bowel sounds Skin: General skin exam: normal color Neuro: General: patient oriented x3 and no focal motor deficits Speech: normal speech Motor exam (neuro): 5/5 motor strength present throughout Extrem: General: no calf tenderness and no edema Psych: Affect: normal affect Insight: Good insight present (Psych) Judgement: Good judgement present (Psych) Objective Data Vital Signs Vital Signs: Vital Signs - 24 hr 07/15/23 10:00 07/15/23 20:08 07/15/23 20:00 Temperature 97.8 F 98.9 F Pulse Rate 92 92 Respiratory Rate 17 20 Blood Pressure 115/66 135/62 Pulse Oximetry 100 100 Oxygen Delivery Room Air 07/16/23 05:32 Temperature 98.7 F Pulse Rate 93 Respiratory Rate 20 Blood Pressure 128/63 Pulse Oximetry 98 Oxygen Delivery Intake/Output Intake/Output: Intake & Output 07/13/23 07/14/23 07/15/23 07/16/23 23:59 23:59 23:59 23:59 Intake Total 2450 2420 1000 Balance 2450 2420 1000 Meds/Results Medications: Active Medications Generic Name Dose Route Start Last Admin Trade Name Freq PRN Reason Stop Dose Admin Acetaminophen 500 mg 07/14/23 19:59 Acetaminophen 500 Mg Tablet PO Q6H PRN Mild Pain (1-3) or Fever Hydrocodone Bitart/Acetaminophen 1 tab 07/14/23 19:59 Hydrocodone/Acetaminophen (*Crx) 5-325 Mg Tablet PO Q4H PRN Pain Rated 4-6 Hydrocodone Bitart/Acetaminophen 1 tab 07/14/23 19:59 Hydrocodone/Acetaminophen (*Crx) 10-325 Mg Tablet PO Q6H PRN Pain Rated 7-10 Aspirin 81 mg 07/15/23 09:00 07/15/23 12:23 Aspirin 81 Mg Chewable Tablet PO 81 mg DAILY HIRO Administration Dextrose 12.5 gm 07/15/23 13:47 Dextrose 50% 25 Gm/50 Ml Syringe IV PUSH PRN PRN Hypoglycemia Protocol Glimepiride 1 mg 07/15/23 09:00 07/15/23 12:22 Glimepiride 1 Mg Tablet PO 1 mg DAILY HIRO Administration Glucagon
[2023-07-16 09:27] LABS: Lipase 195 U/L (23-300)
[2023-07-16] MEDS: ROSUVASTATIN 5 MG TABLET PO (10:26)
[2023-07-16] MEDS: GLIMEPIRIDE 1 MG TABLET PO (10:26)
[2023-07-16] MEDS: ASPIRIN 81 MG CHEWABLE TABLET PO (10:26)
[2023-07-16] MEDS: LOSARTAN POTASSIUM 25 MG TABLET PO (10:26)
[2023-07-16 12:21] LABS: Glucose Point of Care 159 mg/dl (65-105)
[2023-07-16 13:04] LABS: Hematocrit 26.7 % (37.0-47.0); Hemoglobin 8.5 g/dL (12.0-15.0)
--- NOTE | 2023-07-16 13:58 | PM.PNGS ---
Progress Note: A&P Assessment and Plan (1) Choledocholithiasis with chronic cholecystitis: Code(s): K80.44 - Calculus of bile duct with chronic cholecystitis without obstruction Status: Acute Assessment and Plan: stable, cont routine postop care, plan for ERCP on Tuesday Subjective Subjective Date/Time Seen: 07/16/23 13:58 Interval history: feels better, bola clears Review of Systems Review of Systems: All systems reviewed & are unremarkable except as noted in HPI and below Exam Const: General: cooperative, comfortable and no acute distress GI: Inspection: normal to inspection, distended and incision GI Palp: Yes abdominal tenderness, Yes Soft to palpation and Yes Tenderness to palpation present (GI) Objective Data Vital Signs Vital Signs: Vital Signs - 24 hr 07/15/23 20:08 07/15/23 20:00 07/16/23 05:32 Temperature 37.2 C 37.1 C Pulse Rate 92 93 Respiratory Rate 20 20 Blood Pressure 135/62 128/63 Pulse Oximetry 100 98 Oxygen Delivery Room Air Intake/Output Intake/Output: Intake & Output 07/13/23 07/14/23 07/15/23 07/16/23 23:59 23:59 23:59 23:59 Intake Total 2450 2420 1360 Balance 2450 2420 1360 Meds/Results Medications: Active Medications Generic Name Dose Route Start Last Admin Trade Name Freq PRN Reason Stop Dose Admin Acetaminophen 500 mg 07/14/23 19:59 Acetaminophen 500 Mg Tablet PO Q6H PRN Mild Pain (1-3) or Fever Hydrocodone Bitart/Acetaminophen 1 tab 07/14/23 19:59 Hydrocodone/Acetaminophen (*Crx) 5-325 Mg Tablet PO Q4H PRN Pain Rated 4-6 Hydrocodone Bitart/Acetaminophen 1 tab 07/14/23 19:59 Hydrocodone/Acetaminophen (*Crx) 10-325 Mg Tablet PO Q6H PRN Pain Rated 7-10 Aspirin 81 mg 07/15/23 09:00 07/16/23 10:26 Aspirin 81 Mg Chewable Tablet PO 81 mg DAILY HIRO Administration Dextrose 12.5 gm 07/15/23 13:47 Dextrose 50% 25 Gm/50 Ml Syringe IV PUSH PRN PRN Hypoglycemia Protocol Glimepiride 1 mg 07/15/23 09:00 07/16/23 10:26 Glimepiride 1 Mg Tablet PO 1 mg DAILY HIRO Administration Glucagon 1 mg 07/15/23 13:47 Glucagon For Inj 1 Mg Vial IM PRN PRN Hypoglycemia Protocol Glucose 15 gm 07/15/23 13:47 Glucose Oral Gel 15 Gm Of Glucse In 37.5 Gm Tube PO PRN PRN Hypoglycemia Protocol Dextrose 1,000 mls @ 100 mls/hr 07/15/23 13:47 Dextrose 5% 1,000 Ml IVPB PRN PRN Hypoglycemia Protocol Insulin Aspart 2 - 5 units 07/15/23 17:00 07/16/23 08:20 Insulin Aspart (*Bkc) 100 Units/Ml SUB-Q Not Given TIDWM HIRO Protocol Losartan Potassium 25 mg 07/15/23 09:00 07/16/23 10:26 Losartan Potassium 25 Mg Tablet PO 25 mg DAILY HIRO Administration Metformin HCl 500 mg 07/15/23 09:00 07/15/23 17:56 Metformin Hcl 500 Mg Tablet PO 500 mg BID HIRO Administration Morphine Sulfate 2 mg 07/14/23 19:59 07/14/23 21:56 Morphine Sulfate (*Crx) 2 Mg/Ml Inj IV PUSH 2 mg Q2H PRN Administration Pain Rated 4-6 Morphine Sulfate 4 mg 07/14/23 19:59 07/16/23 07:33 Morphine Sulfate (*Crx) 4 Mg/Ml Inj IV PUSH 4 mg Q2H PRN Administration Pain Rated 7-10 Naloxone HCl 0.1 mg 07/14/23 19:59 Naloxone Hcl 0.4 Mg/Ml Vial IV PUSH Q2M PRN Opiate Reversal Ondansetron HCl 4 mg 07/14/23 19:59 07/14/23 20:15 Ondansetron Inj 4 Mg/2 Ml Vial IV PUSH 4 mg Q4H PRN Administration Nausea And Vomiting Rosuvastatin Calcium 5 mg 07/15/23 09:00 07/16/23 10:26 Rosuvastatin 5 Mg Tablet PO 5 mg DAILY HIRO Administration Radiology Results: ITS Impressions Cholangiogram,Operative 07/14/23 17:46 IMPRESSION: 1. 4 mm stone in the distal common bile duct with intrahepatic and extrahepatic biliary duct dilatation. Labs Labs: Laboratory Results - last 24 hr 07/15/23 07/15/23 07/15/23 14:38 17:06 20:08 WBC RBC Hgb 9.4 L
[2023-07-16 14:00] VITALS: BP 126/63; PULSE 103; RESP 16; TEMP 37.1; O2SAT 100
[2023-07-16 17:12] LABS: Glucose Point of Care 82 mg/dl (65-105)
[2023-07-16 20:49] VITALS: BP 141/79; PULSE 105; RESP 16; TEMP 36.6; O2SAT 100
[2023-07-16 22:03] LABS: Glucose Point of Care 111 mg/dl (65-105)
[2023-07-17 04:56] VITALS: BP 117/63; PULSE 85; RESP 16; TEMP 36.5; O2SAT 97
[2023-07-17 06:29] LABS: Hematocrit 27.8 % (37.0-47.0); Hemoglobin 8.6 g/dL (12.0-15.0); Mean Corpuscular HGB Conc 30.9 g/dl (32-36); Mean Corpuscular Volume 96.9 fl (80-100); Mean Platelet Volume 8.3 fl (7.4-10.4); Platelet Count Result 246 k/mm3 (150-375); Red Blood Count 2.87 M/mm3 (4.2-5.4); Red Cell Distribution Width 14.8 % (11.5-14.5); White Blood Count 8.1 K/mm3 (4.5-10.0)
[2023-07-17 06:40] LABS: Alanine Aminotransferase 63 U/L (6-35); Albumin Level 3.2 g/dL (3.5-5.1); Alkaline Phosphatase 240 U/L (38-126); Anion Gap 5 mmol/L (8-16); Aspartate Amino Transferase 60 U/L (14-36); Bilirubin,Total 0.8 mg/dL (0.2-1.3); Blood Urea Nitrogen 19 mg/dL (7-17); Calcium 8.5 mg/dL (8.4-10.2); Carbon Dioxide 30 mmol/L (22-30); Chloride 102 mmol/L (98-107); Estimated CRCL calculation 46 ml/min; Estimated Glomerular Filt Rate 42; Glucose 143 mg/dL (65-110); Potassium 3.8 mmol/L (3.4-5.0); Sodium 137 mmol/L (137-145)
[2023-07-17 08:25] LABS: Glucose Point of Care 130 mg/dl (65-105)
[2023-07-17] MEDS: GLIMEPIRIDE 1 MG TABLET PO (08:42)
[2023-07-17] MEDS: ASPIRIN 81 MG CHEWABLE TABLET PO (08:42)
[2023-07-17] MEDS: LOSARTAN POTASSIUM 25 MG TABLET PO (08:42)
[2023-07-17] MEDS: ROSUVASTATIN 5 MG TABLET PO (08:42)
--- NOTE | 2023-07-17 10:04 | PM.PNGS ---
Progress Note: A&P Assessment and Plan (1) Choledocholithiasis with chronic cholecystitis: Code(s): K80.44 - Calculus of bile duct with chronic cholecystitis without obstruction Status: Acute Assessment and Plan: stable, exam benign, labs largely unremarkable, ADAT, plan for ERCP on 07/19 (2) Intraoperative hemorrhage and hematoma of a digestive system organ or structure complicating a digestive system procedure: Code(s): K91.61 - Intraoperative hemorrhage and hematoma of a digestive system organ or structure complicating a digestive system procedure Status: Acute Assessment and Plan: H/H and HD stable Subjective Subjective Date/Time Seen: 07/17/23 10:04 Interval history: no acute issues, bola full liquids Review of Systems Review of Systems: All systems reviewed & are unremarkable except as noted in HPI and below Exam Const: General: cooperative, comfortable and no acute distress Resp: Auscultation: clear to auscultation bilaterally Cardio: Rate: regular rate Rhythm: regular rhythm GI: Inspection: normal to inspection and incision GI Palp: Yes abdominal tenderness, Yes Soft to palpation and Yes Tenderness to palpation present (GI) Objective Data Vital Signs Vital Signs: Vital Signs - 24 hr 07/16/23 14:00 07/16/23 19:34 07/16/23 20:49 Temperature 37.1 C 36.6 C Pulse Rate 103 H 105 H Respiratory Rate 16 16 Blood Pressure 126/63 141/79 H Pulse Oximetry 100 100 Oxygen Delivery Room Air 07/17/23 04:56 Temperature 36.5 C Pulse Rate 85 Respiratory Rate 16 Blood Pressure 117/63 Pulse Oximetry 97 Oxygen Delivery Intake/Output Intake/Output: Intake & Output 07/14/23 07/15/23 07/16/23 07/17/23 23:59 23:59 23:59 23:59 Intake Total 2450 2420 1750 270 Balance 2450 2420 1750 270 Meds/Results Medications: Active Medications Generic Name Dose Route Start Last Admin Trade Name Freq PRN Reason Stop Dose Admin Acetaminophen 500 mg 07/14/23 19:59 Acetaminophen 500 Mg Tablet PO Q6H PRN Mild Pain (1-3) or Fever Hydrocodone Bitart/Acetaminophen 1 tab 07/14/23 19:59 Hydrocodone/Acetaminophen (*Crx) 5-325 Mg Tablet PO Q4H PRN Pain Rated 4-6 Hydrocodone Bitart/Acetaminophen 1 tab 07/14/23 19:59 Hydrocodone/Acetaminophen (*Crx) 10-325 Mg Tablet PO Q6H PRN Pain Rated 7-10 Aspirin 81 mg 07/15/23 09:00 07/17/23 08:42 Aspirin 81 Mg Chewable Tablet PO 81 mg DAILY HIRO Administration Dextrose 12.5 gm 07/15/23 13:47 Dextrose 50% 25 Gm/50 Ml Syringe IV PUSH PRN PRN Hypoglycemia Protocol Glimepiride 1 mg 07/15/23 09:00 07/17/23 08:42 Glimepiride 1 Mg Tablet PO 1 mg DAILY HIRO Administration Glucagon 1 mg 07/15/23 13:47 Glucagon For Inj 1 Mg Vial IM PRN PRN Hypoglycemia Protocol Glucose 15 gm 07/15/23 13:47 Glucose Oral Gel 15 Gm Of Glucse In 37.5 Gm Tube PO PRN PRN Hypoglycemia Protocol Dextrose 1,000 mls @ 100 mls/hr 07/15/23 13:47 Dextrose 5% 1,000 Ml IVPB PRN PRN Hypoglycemia Protocol Insulin Aspart 2 - 5 units 07/15/23 17:00 07/17/23 08:42 Insulin Aspart (*Bkc) 100 Units/Ml SUB-Q Not Given TIDWM [facility] Protocol Losartan Potassium 25 mg 07/15/23 09:00 07/17/23 08:42 Losartan Potassium 25 Mg Tablet PO 25 mg DAILY HIRO Administration Metformin HCl 500 mg 07/15/23 09:00 07/15/23 17:56 Metformin Hcl 500 Mg Tablet PO 500 mg BID HIRO Administration Morphine Sulfate 2 mg 07/14/23 19:59 07/14/23 21:56 Morphine Sulfate (*Crx) 2 Mg/Ml Inj IV PUSH 2 mg Q2H PRN Administration Pain Rated 4-6 Morphine Sulfate 4 mg 07/14/23 19:59 07/16/23 20:45 Morphine Sulfate (*Crx) 4 Mg/Ml Inj IV PUSH 4 mg Q2H PRN Administration Pain Rated 7-10 Naloxone HCl 0.1 mg 07/14/23 19:59 Naloxone Hcl 0.4 Mg/Ml Vial IV PUSH Q2M PRN Opiate Reversal Ondanse
--- NOTE | 2023-07-17 10:11 | WPDGIPROGNO ---
Progress Note: A&P Assessment and Plan (1) Intraoperative hemorrhage and hematoma of a digestive system organ or structure complicating a digestive system procedure: Code(s): K91.61 - Intraoperative hemorrhage and hematoma of a digestive system organ or structure complicating a digestive system procedure Status: Acute Assessment and Plan: hgb low but stable now (2) Choledocholithiasis with chronic cholecystitis: Code(s): K80.44 - Calculus of bile duct with chronic cholecystitis without obstruction Status: Acute Assessment and Plan: ercp next Tuesday based on clinical course will be challenging to do earlier since she has to be positioned in prone position- she is more comfortable today with less pain (3) Biliary acute pancreatitis without necrosis or infection: Code(s): K85.10 - Biliary acute pancreatitis without necrosis or infection Status: Resolved Assessment and Plan: this was the cause of cholecystectomy and found to have filling defect in bile duct using IOC advance diet as tolerated (4) Anemia due to blood loss, acute: Code(s): D62 - Acute posthemorrhagic anemia Status: Acute Assessment and Plan: monitor Subjective Date/time seen: 07/17/23 10:11 Interval history: more comfortable today with less pain Review of Systems Review of Systems: All systems reviewed & are unremarkable except as noted in HPI and below Exam Const: General: cooperative, comfortable and no acute distress HENMT: Face/Nose/Sinus: Normal nares present Eyes: General: appearance normal, both eyes and all related structures Neck: Neck: supple Resp: Auscultation: clear to auscultation bilaterally Cardio: Rate: regular rate Rhythm: regular rhythm GI: Inspection: normal to inspection and incision GI Palp: Yes abdominal tenderness, Yes Soft to palpation and Yes Tenderness to palpation present (GI) Skin: General skin exam: normal color Neuro: Speech: normal speech Motor exam (neuro): 5/5 motor strength present throughout Extrem: General: normal to inspection Psych: Affect: normal affect Objective Data Vital Signs Vital Signs: Vital Signs - 24 hr 07/16/23 14:00 07/16/23 19:34 07/16/23 20:49 Temperature 98.8 F 97.9 F Pulse Rate 103 H 105 H Respiratory Rate 16 16 Blood Pressure 126/63 141/79 H Pulse Oximetry 100 100 Oxygen Delivery Room Air 07/17/23 04:56 Temperature 97.7 F Pulse Rate 85 Respiratory Rate 16 Blood Pressure 117/63 Pulse Oximetry 97 Oxygen Delivery Intake/Output Intake/Output: Intake & Output 07/14/23 07/15/23 07/16/23 07/17/23 23:59 23:59 23:59 23:59 Intake Total 2450 2420 1750 270 Balance 2450 2420 1750 270 Meds/Results Medications: Active Medications Generic Name Dose Route Start Last Admin Trade Name Freq PRN Reason Stop Dose Admin Acetaminophen 500 mg 07/14/23 19:59 Acetaminophen 500 Mg Tablet PO Q6H PRN Mild Pain (1-3) or Fever Hydrocodone Bitart/Acetaminophen 1 tab 07/14/23 19:59 Hydrocodone/Acetaminophen (*Crx) 5-325 Mg Tablet PO Q4H PRN Pain Rated 4-6 Hydrocodone Bitart/Acetaminophen 1 tab 07/14/23 19:59 Hydrocodone/Acetaminophen (*Crx) 10-325 Mg Tablet PO Q6H PRN Pain Rated 7-10 Aspirin 81 mg 07/15/23 09:00 07/17/23 08:42 Aspirin 81 Mg Chewable Tablet PO 81 mg DAILY HIRO Administration Dextrose 12.5 gm 07/15/23 13:47 Dextrose 50% 25 Gm/50 Ml Syringe IV PUSH PRN PRN Hypoglycemia Protocol Glimepiride 1 mg 07/15/23 09:00 07/17/23 08:42 Glimepiride 1 Mg Tablet PO 1 mg DAILY HIRO Administration Glucagon 1 mg 07/15/23 13:47 Glucagon For Inj 1 Mg Vial IM PRN PRN Hypoglycemia Protocol Glucose 15 gm 07/15/23 13:47 Glucose Oral Gel 15 Gm Of Glucse In 37.5 Gm Tube PO PRN PRN Hypoglycemia Protocol Dextrose 1,000 mls @ 100 mls/hr 07/15/23 13:47 Dextrose
[2023-07-17 12:09] LABS: Glucose Point of Care 145 mg/dl (65-105)
--- NOTE | 2023-07-17 13:08 | PM.IMPN ---
Progress Note: A&P Assessment and Plan (1) Intraoperative hemorrhage and hematoma of a digestive system organ or structure complicating a digestive system procedure: Code(s): K91.61 - Intraoperative hemorrhage and hematoma of a digestive system organ or structure complicating a digestive system procedure Status: Acute Assessment and Plan: -EBL 1L during cholecystectomy -thought to be injury of a perigastric vessel that was cauterized without evidence of further bleed. -received 2 units of PRBCs in operating -hemoglobin 8.6, continue to monitor. Hemoglobin is 12.7 before surgery. -serial H&H bid (2) Anemia due to blood loss, acute: Code(s): D62 - Acute posthemorrhagic anemia Status: Acute Assessment and Plan: See above Trend H&H (3) Choledocholithiasis with chronic cholecystitis: Code(s): K80.44 - Calculus of bile duct with chronic cholecystitis without obstruction Status: Acute Assessment and Plan: -postop day 2 open cholecystectomy with intraoperative cholangiogram by Dr. Lacey -plan for ERCP on 07/[address] Dickey based on intraoperative cholangiogram showing 4mm distal CBD stone -pain control: P.r.n. Tylenol, [place], morphine -antiemetic Zofran -Perioperative antibiotics Ancef -will trend leukocytosis -mild transaminitis consistent choledocholithiasis (4) Biliary acute pancreatitis without necrosis or infection: Code(s): K85.10 - Biliary acute pancreatitis without necrosis or infection Status: Resolved Assessment and Plan: Patient's original diagnosis. (5) TOMER (acute kidney injury): Code(s): N17.9 - Acute kidney failure, unspecified Status: Acute Assessment and Plan: -creatinine elevated 1.3, likely prerenal in, continue to monitor. 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 (6) Essential hypertension: Code(s): I10 - Essential (primary) hypertension Status: Chronic Assessment and Plan: Continue losartan (7) Type 2 diabetes mellitus: Code(s): E11.9 - Type 2 diabetes mellitus without complications Status: Chronic Assessment and Plan: Insulin Lispro sliding scale, Accu-checks qAcHS Hold metformin Initiate hypoglycemic precautions HgbA1c 6.2 Plan chronic conditions -hyperlipidemia: Aspirin, rosuvastatin -essential hypertension: Losartan -vitamin-D deficiency: On supplement Subjective Date/time seen: 07/17/23 13:08 Interval history: Patient doing well today and feels as if her pain is improving. She is breathing more easily. Plan for ERCP on Tuesday if patient is able lay in the prone position. H&H has remained stable for now. Kidney function is improving. Exam Narrative: GENERAL: Comfortable, no acute distress HENMT: moist mucous membranes EYES: EOM intact b/l NECK: no lymphadenopathy RESPIRATORY: clear to auscultation CARDIO: RRR GI: soft, right upper quadrant tenderness, bowel sounds present, bandages dry and intact SKIN: no rashes EXTREMITIES: no edema, redness or tenderness Objective Data Vital Signs Vital Signs: Vital Signs - 24 hr 07/16/23 14:00 07/16/23 19:34 07/16/23 20:49 Temperature 98.8 F 97.9 F Pulse Rate 103 H 105 H Respiratory Rate 16 16 Blood Pressure 126/63 141/79 H Pulse Oximetry 100 100 Oxygen Delivery Room Air 07/17/23 04:56 Temperature 97.7 F Pulse Rate 85 Respiratory Rate 16 Blood Pressure 117/63 Pulse Oximetry 97 Oxygen Delivery Intake/Output Intake/Output: Intake & Output 07/14/23 07/15/23 07/16/23 07/17/23 23:59 23:59 23:59 23:59 Intake Total 2450 2420 1750 270 Balance 2450 2420 1750 270 Meds/Results Medications: Active Medications Generic Name Dose Route Start Last Admin Trade Name Freq PRN Reason Stop Dose Admin Acetaminophen 500 mg 07/14/23 19:59 Acetaminophen 500 Mg Tablet PO Q6H PRN Mild Pain (1-3) or Fever Hyd
[2023-07-17 14:00] VITALS: BP 113/61; PULSE 81; RESP 16; TEMP 36.8; O2SAT 100
[2023-07-17 17:34] LABS: Glucose Point of Care 89 mg/dl (65-105)
[2023-07-17 19:53] LABS: Glucose Point of Care 131 mg/dl (65-105)
[2023-07-17 21:52] VITALS: BP 152/65; PULSE 79; RESP 20; TEMP 36; O2SAT 100
[2023-07-18 05:24] VITALS: BP 119/63; PULSE 85; RESP 20; TEMP 36.1; O2SAT 96
[2023-07-18 05:49] LABS: Hematocrit 25.7 % (37.0-47.0); Hemoglobin 8.3 g/dL (12.0-15.0); Mean Corpuscular HGB Conc 32.3 g/dl (32-36); Mean Corpuscular Hemoglobin 30.3 pg (26-34); Mean Corpuscular Volume 93.8 fl (80-100); Mean Platelet Volume 8.7 fl (7.4-10.4); Platelet Count Result 291 k/mm3 (150-375); Red Blood Count 2.74 M/mm3 (4.2-5.4); Red Cell Distribution Width 14.2 % (11.5-14.5)
[2023-07-18 06:13] LABS: Alanine Aminotransferase 43 U/L (6-35); Albumin Level 3.1 g/dL (3.5-5.1); Alkaline Phosphatase 183 U/L (38-126); Anion Gap 8 mmol/L (8-16); Aspartate Amino Transferase 28 U/L (14-36); Bilirubin,Total 0.7 mg/dL (0.2-1.3); Blood Urea Nitrogen 18 mg/dL (7-17); Calcium 8.4 mg/dL (8.4-10.2); Carbon Dioxide 26 mmol/L (22-30); Chloride 102 mmol/L (98-107); Estimated CRCL calculation 50 ml/min; Estimated Glomerular Filt Rate 46; Glucose 128 mg/dL (65-110); Potassium 3.7 mmol/L (3.4-5.0); Sodium 136 mmol/L (137-145)
[2023-07-18 08:40] LABS: Glucose Point of Care 139 mg/dl (65-105)
--- NOTE | 2023-07-18 09:00 | PM.PNGS ---
Progress Note: A&P Assessment and Plan (1) Biliary acute pancreatitis without necrosis or infection: Code(s): K85.10 - Biliary acute pancreatitis without necrosis or infection Status: Resolved Assessment and Plan: doing well, plan for ERCP tomorrow (2) Intraoperative hemorrhage and hematoma of a digestive system organ or structure complicating a digestive system procedure: Code(s): K91.61 - Intraoperative hemorrhage and hematoma of a digestive system organ or structure complicating a digestive system procedure Status: Acute Assessment and Plan: no further s/s active bleeding Subjective Subjective Date/Time Seen: 07/18/23 09:00 Interval history: no acute issues, some incisional soreness Review of Systems Review of Systems: All systems reviewed & are unremarkable except as noted in HPI and below Exam Const: General: cooperative, comfortable and no acute distress Resp: Auscultation: clear to auscultation bilaterally Cardio: Rate: regular rate Rhythm: regular rhythm GI: Inspection: normal to inspection, distended and incision GI Palp: Yes abdominal tenderness and Yes Soft to palpation Objective Data Vital Signs Vital Signs: Vital Signs - 24 hr 07/17/23 14:00 07/17/23 19:51 07/17/23 21:52 Temperature 36.8 C 36.0 C L Pulse Rate 81 79 Respiratory Rate 16 20 Blood Pressure 113/61 152/65 H Pulse Oximetry 100 100 Oxygen Delivery Room Air 07/18/23 05:24 Temperature 36.1 C L Pulse Rate 85 Respiratory Rate 20 Blood Pressure 119/63 Pulse Oximetry 96 Oxygen Delivery Intake/Output Intake/Output: Intake & Output 07/15/23 07/16/23 07/17/23 07/18/23 23:59 23:59 23:59 23:59 Intake Total 2420 1750 1480 120 Balance 2420 1750 1480 120 Meds/Results Medications: Active Medications Generic Name Dose Route Start Last Admin Trade Name Freq PRN Reason Stop Dose Admin Acetaminophen 500 mg 07/14/23 19:59 Acetaminophen 500 Mg Tablet PO Q6H PRN Mild Pain (1-3) or Fever Hydrocodone Bitart/Acetaminophen 1 tab 07/14/23 19:59 Hydrocodone/Acetaminophen (*Crx) 5-325 Mg Tablet PO Q4H PRN Pain Rated 4-6 Hydrocodone Bitart/Acetaminophen 1 tab 07/14/23 19:59 Hydrocodone/Acetaminophen (*Crx) 10-325 Mg Tablet PO Q6H PRN Pain Rated 7-10 Aspirin 81 mg 07/15/23 09:00 07/17/23 08:42 Aspirin 81 Mg Chewable Tablet PO 81 mg DAILY HIRO Administration Dextrose 12.5 gm 07/15/23 13:47 Dextrose 50% 25 Gm/50 Ml Syringe IV PUSH PRN PRN Hypoglycemia Protocol Glimepiride 1 mg 07/15/23 09:00 07/17/23 08:42 Glimepiride 1 Mg Tablet PO 1 mg DAILY HIRO Administration Glucagon 1 mg 07/15/23 13:47 Glucagon For Inj 1 Mg Vial IM PRN PRN Hypoglycemia Protocol Glucose 15 gm 07/15/23 13:47 Glucose Oral Gel 15 Gm Of Glucse In 37.5 Gm Tube PO PRN PRN Hypoglycemia Protocol Dextrose 1,000 mls @ 100 mls/hr 07/15/23 13:47 Dextrose 5% 1,000 Ml IVPB PRN PRN Hypoglycemia Protocol Insulin Aspart 2 - 5 units 07/15/23 17:00 07/17/23 17:30 Insulin Aspart (*Bkc) 100 Units/Ml SUB-Q Not Given TIDWM [facility] Protocol Losartan Potassium 25 mg 07/15/23 09:00 07/17/23 08:42 Losartan Potassium 25 Mg Tablet PO 25 mg DAILY HIRO Administration Metformin HCl 500 mg 07/15/23 09:00 07/15/23 17:56 Metformin Hcl 500 Mg Tablet PO 500 mg BID HIRO Administration Morphine Sulfate 2 mg 07/14/23 19:59 07/14/23 21:56 Morphine Sulfate (*Crx) 2 Mg/Ml Inj IV PUSH 2 mg Q2H PRN Administration Pain Rated 4-6 Morphine Sulfate 4 mg 07/14/23 19:59 07/16/23 20:45 Morphine Sulfate (*Crx) 4 Mg/Ml Inj IV PUSH 4 mg Q2H PRN Administration Pain Rated 7-10 Naloxone HCl 0.1 mg 07/14/23 19:59 Naloxone Hcl 0.4 Mg/Ml Vial IV PUSH Q2M PRN Opiate Reversal Ondansetron HCl 4 mg 07/14/23 19:59 07/14/23 20:15 O
[2023-07-18] MEDS: LOSARTAN POTASSIUM 25 MG TABLET PO (09:56)
[2023-07-18] MEDS: ASPIRIN 81 MG CHEWABLE TABLET PO (09:56)
[2023-07-18] MEDS: GLIMEPIRIDE 1 MG TABLET PO (09:56)
[2023-07-18] MEDS: ROSUVASTATIN 5 MG TABLET PO (09:56)
[2023-07-18 12:14] LABS: Glucose Point of Care 159 mg/dl (65-105)
--- NOTE | 2023-07-18 12:42 | PM.IMPN ---
Progress Note: A&P Assessment and Plan (1) Intraoperative hemorrhage and hematoma of a digestive system organ or structure complicating a digestive system procedure: Code(s): K91.61 - Intraoperative hemorrhage and hematoma of a digestive system organ or structure complicating a digestive system procedure Status: Acute Assessment and Plan: -EBL 1L during cholecystectomy -thought to be injury of a perigastric vessel that was cauterized without evidence of further bleed. -received 2 units of PRBCs in operating -hemoglobin 8.3, continue to monitor. Hemoglobin is 12.7 before surgery. (2) Anemia due to blood loss, acute: Code(s): D62 - Acute posthemorrhagic anemia Status: Acute Assessment and Plan: See above Trend H&H (3) Choledocholithiasis with chronic cholecystitis: Code(s): K80.44 - Calculus of bile duct with chronic cholecystitis without obstruction Status: Acute Assessment and Plan: -postop day 2 open cholecystectomy with intraoperative cholangiogram by Dr. Lacey -plan for ERCP on 07/[address] Dickey based on intraoperative cholangiogram showing 4mm distal CBD stone -pain control: P.r.n. Tylenol, [place], morphine -antiemetic Zofran -Perioperative antibiotics Ancef -will trend leukocytosis -mild transaminitis consistent choledocholithiasis (4) Biliary acute pancreatitis without necrosis or infection: Code(s): K85.10 - Biliary acute pancreatitis without necrosis or infection Status: Resolved Assessment and Plan: Patient's original diagnosis. (5) TOMER (acute kidney injury): Code(s): N17.9 - Acute kidney failure, unspecified Status: Acute Assessment and Plan: -creatinine elevated 1.3, likely prerenal in, continue to monitor. 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 She continues to pass gas but no bowel movement yet. Plan for ERCP tomorrow. Exam Narrative: GENERAL: Comfortable, no acute distress HENMT: moist mucous membranes EYES: EOM intact b/l NECK: no lymphadenopathy RESPIRATORY: clear to auscultation CARDIO: RRR GI: soft, right upper quadrant tenderness, bowel sounds present, well-healing incision sites SKIN: no rashes EXTREMITIES: no edema, redness or tenderness Objective Data Vital Signs Vital Signs: Vital Signs - 24 hr 07/17/23 14:00 07/17/23 19:51 07/17/23 21:52 Temperature 98.2 F 96.8 F L Pulse Rate 81 79 Respiratory Rate 16 20 Blood Pressure 113/61 152/65 H Pulse Oximetry 100 100 Oxygen Delivery Room Air 07/18/23 05:24 Temperature 97.0 F L Pulse Rate 85 Respiratory Rate 20 Blood Pressure 119/63 Pulse Oximetry 96 Oxygen Delivery Intake/Output Intake/Output: Intake & Output 07/15/23 07/16/23 07/17/23 07/18/23 23:59 23:59 23:59 23:59 Intake Total 2420 1750 1480 240 Balance 2420 1750 1480 240 Meds/Results Medications: Active Medications Generic Name Dose Route Start Last Admin Trade Name Freq PRN Reason Stop Dose Admin Acetaminophen 500 mg 07/14/23 19:59 Acetaminophen 500 Mg Tablet PO Q6H PRN Mild Pain (1-3) or Fever Hydrocodone Bitart/Acetaminophen 1 tab 07/14/23 19:59 Hydrocodone/Acetaminophen (*Crx) 5-325 Mg Tablet PO Q4H PRN Pain Rated 4
--- NOTE | 2023-07-18 13:17 | WPDGIPROGNO ---
Progress Note: A&P Assessment and Plan (1) Choledocholithiasis with chronic cholecystitis: Code(s): K80.44 - Calculus of bile duct with chronic cholecystitis without obstruction Status: Acute Assessment and Plan: ercp tomorrow because stone in bile duct based on IOC abdominal exam is improved, she is feeling more comfortable (2) Intraoperative hemorrhage and hematoma of a digestive system organ or structure complicating a digestive system procedure: Code(s): K91.61 - Intraoperative hemorrhage and hematoma of a digestive system organ or structure complicating a digestive system procedure Status: Acute Assessment and Plan: hgb low but stable now (3) Biliary acute pancreatitis without necrosis or infection: Code(s): K85.10 - Biliary acute pancreatitis without necrosis or infection Status: Resolved Assessment and Plan: this was the cause of cholecystectomy and found to have filling defect in bile duct using IOC she has been tolerating diet, npo after midnight because ercp tomorrow (4) Anemia due to blood loss, acute: Code(s): D62 - Acute posthemorrhagic anemia Status: Acute Assessment and Plan: monitor Subjective Date/time seen: 07/18/23 13:17 Interval history: abdominal discomfort is much better, tolerating diet Review of Systems Review of Systems: All systems reviewed & are unremarkable except as noted in HPI and below Exam Const: General: cooperative, comfortable and no acute distress HENMT: Face/Nose/Sinus: Normal nares present Eyes: Sclera: sclerae normal Neck: Neck: supple Resp: Auscultation: clear to auscultation bilaterally Cardio: Rate: regular rate Rhythm: regular rhythm GI: Inspection: normal to inspection, distended and incision GI Palp: Yes abdominal tenderness (improved) and Yes Soft to palpation Skin: General skin exam: normal color Neuro: Speech: normal speech Motor exam (neuro): 5/5 motor strength present throughout Extrem: General: normal to inspection Psych: Affect: normal affect Objective Data Vital Signs Vital Signs: Vital Signs - 24 hr 07/17/23 14:00 07/17/23 19:51 07/17/23 21:52 Temperature 98.2 F 96.8 F L Pulse Rate 81 79 Respiratory Rate 16 20 Blood Pressure 113/61 152/65 H Pulse Oximetry 100 100 Oxygen Delivery Room Air 07/18/23 05:24 Temperature 97.0 F L Pulse Rate 85 Respiratory Rate 20 Blood Pressure 119/63 Pulse Oximetry 96 Oxygen Delivery Intake/Output Intake/Output: Intake & Output 07/15/23 07/16/23 07/17/23 07/18/23 23:59 23:59 23:59 23:59 Intake Total 2420 1750 1480 600 Balance 2420 1750 1480 600 Meds/Results Medications: Active Medications Generic Name Dose Route Start Last Admin Trade Name Freq PRN Reason Stop Dose Admin Acetaminophen 500 mg 07/14/23 19:59 Acetaminophen 500 Mg Tablet PO Q6H PRN Mild Pain (1-3) or Fever Hydrocodone Bitart/Acetaminophen 1 tab 07/14/23 19:59 Hydrocodone/Acetaminophen (*Crx) 5-325 Mg Tablet PO Q4H PRN Pain Rated 4-6 Hydrocodone Bitart/Acetaminophen 1 tab 07/14/23 19:59 Hydrocodone/Acetaminophen (*Crx) 10-325 Mg Tablet PO Q6H PRN Pain Rated 7-10 Aspirin 81 mg 07/15/23 09:00 07/18/23 09:56 Aspirin 81 Mg Chewable Tablet PO 81 mg DAILY HIRO Administration Dextrose 12.5 gm 07/15/23 13:47 Dextrose 50% 25 Gm/50 Ml Syringe IV PUSH PRN PRN Hypoglycemia Protocol Glimepiride 1 mg 07/15/23 09:00 07/18/23 09:56 Glimepiride 1 Mg Tablet PO 1 mg DAILY HIRO Administration Glucagon 1 mg 07/15/23 13:47 Glucagon For Inj 1 Mg Vial IM PRN PRN Hypoglycemia Protocol Glucose 15 gm 07/15/23 13:47 Glucose Oral Gel 15 Gm Of Glucse In 37.5 Gm Tube PO PRN PRN Hypoglycemia Protocol Dextrose 1,000 mls @ 100 mls/hr 07/15/23 13:47 Dextrose 5% 1,000 Ml IVPB PRN PRN Hypoglycemia Protocol
[2023-07-18 14:00] VITALS: BP 135/67; PULSE 90; RESP 15; TEMP 36.6; O2SAT 99
[2023-07-18 17:09] LABS: Glucose Point of Care 87 mg/dl (65-105)
[2023-07-18 22:00] VITALS: BP 138/67; PULSE 95; RESP 20; TEMP 36.1; O2SAT 100
[2023-07-18 22:24] LABS: Glucose Point of Care 112 mg/dl (65-105)
[2023-07-19] VITALS (14 sets, daily range): BP systolic 98–154; BP diastolic 51–82; PULSE 78–102; RESP 16–22; TEMP 36.2–36.9; O2SAT 97–100
[2023-07-19] MEDS: MORPHINE SULFATE (*CRX) 2 MG/ML INJ IV PUSH (02:48)
[2023-07-19 05:50] LABS: Hematocrit 27.4 % (37.0-47.0); Hemoglobin 8.7 g/dL (12.0-15.0); Mean Corpuscular HGB Conc 31.8 g/dl (32-36); Mean Corpuscular Hemoglobin 30.1 pg (26-34); Mean Corpuscular Volume 94.8 fl (80-100); Mean Platelet Volume 8.3 fl (7.4-10.4); Platelet Count Result 355 k/mm3 (150-375); Red Blood Count 2.89 M/mm3 (4.2-5.4); Red Cell Distribution Width 13.9 % (11.5-14.5); White Blood Count 7.4 K/mm3 (4.5-10.0)
[2023-07-19 06:03] LABS: Alanine Aminotransferase 33 U/L (6-35); Albumin Level 3.1 g/dL (3.5-5.1); Alkaline Phosphatase 206 U/L (38-126); Anion Gap 7 mmol/L (8-16); Aspartate Amino Transferase 24 U/L (14-36); Bilirubin,Total 0.6 mg/dL (0.2-1.3); Blood Urea Nitrogen 18 mg/dL (7-17); Calcium 8.5 mg/dL (8.4-10.2); Carbon Dioxide 30 mmol/L (22-30); Chloride 101 mmol/L (98-107); Estimated CRCL calculation 46 ml/min; Estimated Glomerular Filt Rate 42; Glucose 140 mg/dL (65-110); Potassium 3.5 mmol/L (3.4-5.0); Sodium 138 mmol/L (137-145)
[2023-07-19] MEDS: LACTATED RINGERS 1,000 ML 150 ML IV CONT (07:44)
--- NOTE | 2023-07-19 07:46 | P.PNAN_ITS ---
Anes - Eval Final PreProcedure Day of Procedure 07/19/23 07:46 Patient weight: obese Heart: regular rate and rhythm Lungs: clear to auscultation Airway: Mallampati scale class II Neurological: alert and oriented Last oral intake: >/= 8 hours ASA classification: III Emergent: no Anesthetic plan: proceed Anesthesia type and monitoring: general ETT and standard monitoring Results Review: All pre-operative results and documents have been reviewed as part of the pre- operative evaluation. Informed Consent: The patient's anesthetic plan and its attendant risks and benefits were discussed with the patient/family/POA. Questions were solicited and answers provided to the satisfaction of the patient/family/POA.
[2023-07-19 07:49] LABS: Glucose Point of Care 136 mg/dl (65-105)
[2023-07-19] MEDS: INDOMETHACIN 50 MG SUPP.RECT RECTAL (08:50)
[2023-07-19 09:46] LABS: Glucose Point of Care 147 mg/dl (65-105)
[2023-07-19] MEDS: LOSARTAN POTASSIUM 25 MG TABLET PO (10:59)
[2023-07-19] MEDS: GLIMEPIRIDE 1 MG TABLET PO (10:59)
[2023-07-19] MEDS: ROSUVASTATIN 5 MG TABLET PO (10:59)
--- NOTE | 2023-07-19 11:45 | PM.PNGS ---
Progress Note: A&P Assessment and Plan (1) Choledocholithiasis with chronic cholecystitis: Code(s): K80.44 - Calculus of bile duct with chronic cholecystitis without obstruction Status: Acute Assessment and Plan: Patient to have ERCP this morning. Wound some surgery are healing well. Pain is improving nicely. Will order some oral analgesics. Hopefully home in 1-2 days. (2) Intraoperative hemorrhage and hematoma of a digestive system organ or structure complicating a digestive system procedure: Code(s): K91.61 - Intraoperative hemorrhage and hematoma of a digestive system organ or structure complicating a digestive system procedure Status: Acute Assessment and Plan: No signs of further bleeding. (3) Anemia due to blood loss, acute: Code(s): D62 - Acute posthemorrhagic anemia Status: Acute Assessment and Plan: Anemic but no sign of continued bleeding. Anemia is stable. (4) Acute on chronic renal failure: Qualifiers: Acute renal failure type: unspecified Chronic kidney disease stage: stage 3 (moderate) Chronic kidney disease stage 3 subtype: stage 3a (GFR 45-59) Qualified Code(s): N17.9 - Acute kidney failure, unspecified; N18.31 - Chronic kidney disease, stage 3a Code(s): N17.9 - Acute kidney failure, unspecified; N18.9 - Chronic kidney disease, unspecified Status: Acute Assessment and Plan: Appears to be back to baseline chronic renal failure. (5) Type 2 diabetes mellitus: Code(s): E11.9 - Type 2 diabetes mellitus without complications Status: Chronic (6) Essential hypertension: Code(s): I10 - Essential (primary) hypertension Status: Chronic Subjective Subjective Date/Time Seen: 07/19/23 08:45 Post Op day: 4 Patient reports: no new complaints, feels better, tolerating liquids well, bowel movement and afebrile Interval history: Patient is seen in the endoscopy suite just prior to her ERCP. She has no new complaints. She is anxious to go home. Her incisional pain is improving. Exam Const: General: cooperative, comfortable, no acute distress, alert and awake Nutritional Appearance: obese Orientation/consciousness: patient oriented x3 GI: Inspection: incision (Neal intact. All incisions healing well. No drainage and no erythema) and obesity GI Palp: Yes Soft to palpation, Yes Tenderness to palpation present (GI) (Incisional tenderness), No Guarding due to palpation present (GI) and No Rebound tenderness present Neuro: General: patient oriented x3 and no focal motor deficits Extrem: General: no calf tenderness and no edema Psych: Affect: normal affect Insight: Good insight present (Psych) Judgement: Good judgement present (Psych) Objective Data Vital Signs Vital Signs: Vital Signs - 24 hr 07/18/23 14:00 07/18/23 19:09 07/18/23 22:00 Temperature 36.6 C 36.1 C L Pulse Rate 90 95 Respiratory Rate 15 20 Blood Pressure 135/67 138/67 Pulse Oximetry 99 100 Oxygen Delivery Room Air Oxygen Flow Rate 07/19/23 04:52 07/19/23 04:52 07/19/23 05:02 Temperature 36.4 C 36.4 C 36.4 C Pulse Rate 98 98 98 Respiratory Rate 20 20 20 Blood Pressure 121/75 121/75 121/75 Pulse Oximetry 100 100 100 Oxygen Delivery Oxygen Flow Rate 07/19/23 05:12 07/19/23 07:51 07/19/23 09:03 Temperature 36.4 C 36.2 C L Pulse Rate 98 93 98 Respiratory Rate 20 20 22 H Blood Pressure 121/75 129/71 112/74 Pulse Oximetry 100 97 98 Oxygen Delivery Room Air Simple Face Mask Oxygen Flow Rate 10 07/19/23 09:13 07/19/23 09:23 07/19/23 09:33 Temperature Pulse Rate 86 102 H 92 Respiratory Rate 20 20 18 Blood Pressure 107/68 114/72 122/73 Pulse Oximetry 100 100 99 Oxygen Delivery Simple Face Mask Room Air Room Air Oxygen Flow Rate 6 07/19/23 09:43 07/19/23 09:53 07/19/23 10:58 Temperature Pulse Rate 79 78 78 Respiratory Rate 18 18 Blood Pressure 126/67 126/82 154/75 H Puls
[2023-07-19 12:09] LABS: Glucose Point of Care 220 mg/dl (65-105)
[2023-07-19] MEDS: INSULIN ASPART (*BKC) 100 UNITS/ML SUB-Q (12:41)
--- NOTE | 2023-07-19 14:43 | PM.IMPN ---
Progress Note: A&P Assessment and Plan (1) Intraoperative hemorrhage and hematoma of a digestive system organ or structure complicating a digestive system procedure: Code(s): K91.61 - Intraoperative hemorrhage and hematoma of a digestive system organ or structure complicating a digestive system procedure Status: Acute Assessment and Plan: -EBL 1L during cholecystectomy -thought to be injury of a perigastric vessel that was cauterized without evidence of further bleed. -received 2 units of PRBCs in operating -hemoglobin 8.7, continue to monitor. Hemoglobin is 12.7 before surgery. (2) Anemia due to blood loss, acute: Code(s): D62 - Acute posthemorrhagic anemia Status: Acute Assessment and Plan: See above Trend H&H (3) Choledocholithiasis with chronic cholecystitis: Code(s): K80.44 - Calculus of bile duct with chronic cholecystitis without obstruction Status: Acute Assessment and Plan: -postop day 5 open cholecystectomy with intraoperative cholangiogram by Dr. Lacey -pain control: P.r.n. Tylenol, [place], morphine -antiemetic Zofran -Perioperative antibiotics Ancef -will trend leukocytosis -mild transaminitis consistent choledocholithiasis -ERCP preformed today and stone was not visualized. (4) Biliary acute pancreatitis without necrosis or infection: Code(s): K85.10 - Biliary acute pancreatitis without necrosis or infection Status: Resolved Assessment and Plan: Patient's original diagnosis. (5) TOMER (acute kidney injury): Code(s): N17.9 - Acute kidney failure, unspecified Status: Inactive Assessment and Plan: -creatinine elevated 1.3, likely prerenal in, continue to monitor. 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 (6) Essential hypertension: Code(s): I10 - Essential (primary) hypertension Status: Chronic Assessment and Plan: Continue losartan (7) Type 2 diabetes mellitus: Code(s): E11.9 - Type 2 diabetes mellitus without complications Status: Chronic Assessment and Plan: Insulin Lispro sliding scale, Accu-checks qAcHS Hold metformin Initiate hypoglycemic precautions HgbA1c 6.2 Plan chronic conditions -hyperlipidemia: Aspirin, rosuvastatin -essential hypertension: Losartan -vitamin-D deficiency: On supplement Subjective Date/time seen: 07/19/23 14:43 Interval history: Patient doing well today. Got an ERCP, did not reveal any stone. No complaints at this time. Exam Narrative: GENERAL: Comfortable, no acute distress HENMT: moist mucous membranes EYES: EOM intact b/l NECK: no lymphadenopathy RESPIRATORY: clear to auscultation CARDIO: RRR GI: soft, right upper quadrant tenderness, bowel sounds present, well-healing incision sites SKIN: no rashes EXTREMITIES: no edema, redness or tenderness Objective Data Vital Signs Vital Signs: Vital Signs - 24 hr 07/18/23 19:09 07/18/23 22:00 07/19/23 04:52 Temperature 96.9 F L 97.6 F Pulse Rate 95 98 Respiratory Rate 20 20 Blood Pressure 138/67 121/75 Pulse Oximetry 100 100 Oxygen Delivery Room Air Oxygen Flow Rate 07/19/23 04:52 07/19/23 05:02 07/19/23 05:12 Temperature 97.6 F 97.6 F 97.6 F Pulse Rate 98 98 98 Respiratory Rate 20 20 20 Blood Pressure 121/75 121/75 121/75 Pulse Oximetry 100 100 100 Oxygen Delivery Oxygen Flow Rate 07/19/23 07:51 07/19/23 09:03 07/19/23 09:13 Temperature 97.2 F L Pulse Rate 93 98 86 Respiratory Rate 20 22 H 20 Blood Pressure 129/71 112/74 107/68 Pulse Oximetry 97 98 100 Oxygen Delivery Room Air Simple Face Mask Simple Face Mask Oxygen Flow Rate 10 6 07/19/23 09:23 07/19/23 09:33 07/19/23 09:43 Temperature Pulse Rate 102 H 92 79 Respiratory Rate 20 18 18 Blood Pressure 114/72 122/73 126/67 Pulse Oximetry 100 99 100 Oxygen Delivery Room Air Room Air Room Air Oxygen Flow Rate 09
[2023-07-19 17:27] LABS: Glucose Point of Care 123 mg/dl (65-105)
[2023-07-19 19:59] LABS: Glucose Point of Care 172 mg/dl (65-105)
[2023-07-20 05:18] VITALS: BP 127/64; PULSE 87; RESP 18; TEMP 37.1; O2SAT 97
[2023-07-20 05:41] LABS: Hematocrit 29.3 % (37.0-47.0); Hemoglobin 9.2 g/dL (12.0-15.0); Mean Corpuscular HGB Conc 31.4 g/dl (32-36); Mean Corpuscular Volume 95.4 fl (80-100); Mean Platelet Volume 8.3 fl (7.4-10.4); Platelet Count Result 435 k/mm3 (150-375); Red Blood Count 3.07 M/mm3 (4.2-5.4); Red Cell Distribution Width 13.9 % (11.5-14.5)
[2023-07-20 05:53] LABS: Alanine Aminotransferase 27 U/L (6-35); Albumin Level 3.4 g/dL (3.5-5.1); Alkaline Phosphatase 162 U/L (38-126); Anion Gap 8 mmol/L (8-16); Aspartate Amino Transferase 20 U/L (14-36); Bilirubin,Total 0.5 mg/dL (0.2-1.3); Blood Urea Nitrogen 16 mg/dL (7-17); Calcium 8.7 mg/dL (8.4-10.2); Carbon Dioxide 29 mmol/L (22-30); Chloride 101 mmol/L (98-107); Estimated CRCL calculation 46 ml/min; Estimated Glomerular Filt Rate 42; Glucose 156 mg/dL (65-110); Lipase 316 U/L (23-300); Potassium 3.6 mmol/L (3.4-5.0); Sodium 138 mmol/L (137-145)
--- NOTE | 2023-07-20 07:19 | PM.IMPN ---
Progress Note: A&P Assessment and Plan (1) Intraoperative hemorrhage and hematoma of a digestive system organ or structure complicating a digestive system procedure: Code(s): K91.61 - Intraoperative hemorrhage and hematoma of a digestive system organ or structure complicating a digestive system procedure Status: Acute Assessment and Plan: -EBL 1L during cholecystectomy -thought to be injury of a perigastric vessel that was cauterized without evidence of further bleed. -received 2 units of PRBCs in operating -hemoglobin 8.7, continue to monitor. Hemoglobin is 12.7 before surgery. -Hgb stable today 9.2 (2) Anemia due to blood loss, acute: Code(s): D62 - Acute posthemorrhagic anemia Status: Acute Assessment and Plan: See above Trend H&H (3) Choledocholithiasis with chronic cholecystitis: Code(s): K80.44 - Calculus of bile duct with chronic cholecystitis without obstruction Status: Acute Assessment and Plan: -postop day 5 open cholecystectomy with intraoperative cholangiogram by Dr. Lacey -pain control: P.r.n. Tylenol, [place], morphine -antiemetic Zofran -Perioperative antibiotics Ancef -will trend leukocytosis -ERCP 07/19 with small 4 mm stone extracted -liver enzymes trending appropriately back to baseline (4) Biliary acute pancreatitis without necrosis or infection: Code(s): K85.10 - Biliary acute pancreatitis without necrosis or infection Status: Resolved Assessment and Plan: Patient's original diagnosis. (5) TOMER (acute kidney injury): Code(s): N17.9 - Acute kidney failure, unspecified Status: Inactive Assessment and Plan: -creatinine elevated 1.3, likely prerenal in, continue to monitor. 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 (6) Essential hypertension: Code(s): I10 - Essential (primary) hypertension Status: Chronic Assessment and Plan: Continue losartan (7) Type 2 diabetes mellitus: Code(s): E11.9 - Type 2 diabetes mellitus without complications Status: Chronic Assessment and Plan: Insulin Lispro sliding scale, Accu-checks qAcHS Hold metformin Initiate hypoglycemic precautions HgbA1c 6.2 Plan Continues to recover well post-operatively Liver enzymes normalized Awaiting discharge recommendations from surgery Subjective Date/time seen: 07/20/23 07:19 Interval history: HPI obtained from chart, Lana Martinez is a 58 year old female with past medical history type 2 diabetes, essential hypertension, hyperlipidemia who presents on 07/14/2023 for cholecystitis.? Patient was hospitalized 07/02/2023-07/06 with acute cholecystitis with gallstone, acute cholangitis, acute pancreatitis.? She was treated with IV Zosyn and discharged home on Augmentin.? She returned on 07/14/2023 for laparoscopic cholecystectomy which transition to open cholecystectomy with intraoperative cholangiogram by Dr. Lacey due to intra-abdominal bleed.? Patient is currently NPO for ERCP later today with Dr. Dickey.? Hospitalist service consulted for medical management of chronic conditions.? Patient has not had any issues with her diabetes or cholesterol.? She follows routinely with her PCP.? Patient is otherwise fairly active and lives with .? Patient has fever, chills, nausea vomiting or diarrhea.? She endorses abdominal pain. 07/20: Mrs. Martinez is doing well today. She is tolerating a diet, having bowel movements, and denies nausea or vomiting. Her abdominal pain is well controlled with her current p.r.n. regimen and she mostly notes incisional tenderness and pain with with cough and deep breathing. Her liver enzymes have trended to normal and her vital signs are stable. She is anxious to discharge home today. Will defer to surgery on disposition readiness. Review of Systems Review of Systems: All systems reviewed & are unremarkable except as noted in H
[2023-07-20 07:47] LABS: Glucose Point of Care 142 mg/dl (65-105)
[2023-07-20 08:29] VITALS: PULSE 85; O2SAT 96
[2023-07-20 08:34] VITALS: BP 138/66; PULSE 91; O2SAT 99
[2023-07-20] MEDS: GLIMEPIRIDE 1 MG TABLET PO (08:35)
[2023-07-20] MEDS: ROSUVASTATIN 5 MG TABLET PO (08:35)
[2023-07-20] MEDS: LOSARTAN POTASSIUM 25 MG TABLET PO (08:36)
--- NOTE | 2023-07-20 13:07 | WPDGIPROGNO ---
Progress Note: A&P Assessment and Plan (1) Choledocholithiasis with chronic cholecystitis: Code(s): K80.44 - Calculus of bile duct with chronic cholecystitis without obstruction Status: Acute Assessment and Plan: easy ercp yesterday with sphincterotomy and removal stone tolerating diet no objections to discharge by gi standpoint (2) Intraoperative hemorrhage and hematoma of a digestive system organ or structure complicating a digestive system procedure: Code(s): K91.61 - Intraoperative hemorrhage and hematoma of a digestive system organ or structure complicating a digestive system procedure Status: Acute Assessment and Plan: resolved, stable h/h (3) Essential hypertension: Code(s): I10 - Essential (primary) hypertension Status: Chronic Subjective Date/time seen: 07/20/23 13:07 Interval history: doing well after removal of stone with ercp yesterday bloated but better, no n/v Review of Systems Review of Systems: All systems reviewed & are unremarkable except as noted in HPI and below Exam Const: General: cooperative, comfortable and no acute distress HENMT: Face/Nose/Sinus: Normal nares present Eyes: Sclera: sclerae normal Neck: Neck: supple Resp: Auscultation: clear to auscultation bilaterally Cardio: Rate: regular rate Rhythm: regular rhythm GI: Inspection: normal to inspection and incision GI Palp: Yes abdominal tenderness (improved) and Yes Soft to palpation Skin: General skin exam: normal color Neuro: Speech: normal speech Motor exam (neuro): 5/5 motor strength present throughout Extrem: General: normal to inspection Psych: Affect: normal affect Objective Data Vital Signs Vital Signs: Vital Signs - 24 hr 07/19/23 14:44 07/19/23 20:37 07/19/23 21:32 Temperature 97.4 F L 98.4 F Pulse Rate 89 90 Respiratory Rate 16 17 Blood Pressure 98/51 L 123/56 L Pulse Oximetry 100 100 99 Oxygen Delivery Room Air 07/20/23 05:18 07/20/23 08:29 07/20/23 08:34 Temperature 98.7 F Pulse Rate 87 85 91 Respiratory Rate 18 Blood Pressure 127/64 138/66 Pulse Oximetry 97 96 99 Oxygen Delivery Room Air 07/20/23 08:35 Temperature Pulse Rate Respiratory Rate Blood Pressure Pulse Oximetry Oxygen Delivery Room Air Intake/Output Intake/Output: Intake & Output 07/17/23 07/18/23 07/19/23 07/20/23 23:59 23:59 23:59 23:59 Intake Total 1480 1420 470 170 Balance 1480 1420 470 170 Meds/Results Medications: Active Medications Generic Name Dose Route Start Last Admin Trade Name Freq PRN Reason Stop Dose Admin Acetaminophen 500 mg 07/14/23 19:59 Acetaminophen 500 Mg Tablet PO Q6H PRN Mild Pain (1-3) or Fever Hydrocodone Bitart/Acetaminophen 1 tab 07/14/23 19:59 Hydrocodone/Acetaminophen (*Crx) 5-325 Mg Tablet PO Q4H PRN Pain Rated 4-6 Hydrocodone Bitart/Acetaminophen 1 tab 07/14/23 19:59 Hydrocodone/Acetaminophen (*Crx) 10-325 Mg Tablet PO Q6H PRN Pain Rated 7-10 Aspirin 81 mg 07/15/23 09:00 07/20/23 08:31 Aspirin 81 Mg Chewable Tablet PO Not Given DAILY HIRO Dextrose 12.5 gm 07/15/23 13:47 Dextrose 50% 25 Gm/50 Ml Syringe IV PUSH PRN PRN Hypoglycemia Protocol Glimepiride 1 mg 07/15/23 09:00 07/20/23 08:35 Glimepiride 1 Mg Tablet PO 1 mg DAILY HIRO Administration Glucagon 1 mg 07/15/23 13:47 Glucagon For Inj 1 Mg Vial IM PRN PRN Hypoglycemia Protocol Glucose 15 gm 07/15/23 13:47 Glucose Oral Gel 15 Gm Of Glucse In 37.5 Gm Tube PO PRN PRN Hypoglycemia Protocol Dextrose 1,000 mls @ 100 mls/hr 07/15/23 13:47 Dextrose 5% 1,000 Ml IVPB PRN PRN Hypoglycemia Protocol Insulin Aspart 2 - 5 units 07/15/23 17:00 07/20/23 08:30 Insulin Aspart (*Bkc) 100 Units/Ml SUB-Q Not Given TIDWM HIRO Protocol Losartan Potassium 25 mg 07/15/23 09:00 07/20/23 08:36
--- NOTE | 2023-07-20 13:23 | WPDANESPN ---
Anes - Prog Note Post-Op Date/Time: 07/20/23 13:23 Cardiovascular status: normal Respiratory status: normal Airway patency: baseline Mental status: baseline Post-Op hydration status: normal Vital Signs: Last Vital Signs Temp 37.1 C 07/20/23 05:18 Pulse 91 07/20/23 08:34 Resp 18 07/20/23 05:18 BP 138/66 07/20/23 08:34 Pulse Ox 99 07/20/23 08:34 O2 Del Method Room Air 07/20/23 08:35 O2 Flow Rate 6 07/19/23 09:13 Pain Score (VAS): 0/10 I/O: Intake & Output 07/19/23 07/20/23 07/20/23 23:59 07:59 15:59 Intake Total 300 50 120 Balance 300 50 120 Laboratory Tests 07/20/23 05:11 07/20/23 05:10 07/19/23 07/19/23 07/20/23 17:18 19:55 05:10 WBC RBC Hgb Hct MCV MCH MCHC RDW Plt Count MPV Sodium 138 Potassium 3.6 Chloride 101 Carbon Dioxide 29 Anion Gap 8 BUN 16 Creatinine 1.30 H Estim Creat Clear Calc 46 Estimated GFR 42 L Glucose 156 H POC Capillary Glucose 123 H 172 H Calcium 8.7 Total Bilirubin 0.5 AST 20 ALT 27 Alkaline Phosphatase 162 H Total Protein 7.0 Albumin 3.4 L Lipase 316 H 07/20/23 07/20/23 05:11 07:38 WBC 10.0 RBC 3.07 L Hgb 9.2 L Hct 29.3 L MCV 95.4 MCH 30.0 MCHC 31.4 L RDW 13.9 Plt Count 435 H MPV 8.3 Sodium Potassium Chloride Carbon Dioxide Anion Gap BUN Creatinine Estim Creat Clear Calc Estimated GFR Glucose POC Capillary Glucose 142 H Calcium Total Bilirubin AST ALT Alkaline Phosphatase Total Protein Albumin Lipase Post-procedural complaints: none Patient Feedback: Patient satisfied with anesthetic care.
[2023-07-20 14:00] VITALS: BP 138/68; PULSE 90; RESP 16; TEMP 37; O2SAT 99
--- NOTE | 2023-07-20 14:00 | PM.DS ---
DS: Admitting Diagnosis Discharge Date 07/20/2023 Admitting Diagnosis Acute cholecystitis DS: Discharge Diagnosis Discharge Diagnosis (1) Intraoperative hemorrhage and hematoma of a digestive system organ or structure complicating a digestive system procedure: Code(s): K91.61 - Intraoperative hemorrhage and hematoma of a digestive system organ or structure complicating a digestive system procedure Status: Acute Assessment and Plan: -EBL 1L during cholecystectomy -thought to be injury of a perigastric vessel that was cauterized without evidence of further bleed. -received 2 units of PRBCs in operating -hemoglobin 8.7, continue to monitor. Hemoglobin is 12.7 before surgery. -Hgb stable today 9.2 (2) Anemia due to blood loss, acute: Code(s): D62 - Acute posthemorrhagic anemia Status: Acute Assessment and Plan: See above Trend H&H (3) Choledocholithiasis with chronic cholecystitis: Code(s): K80.44 - Calculus of bile duct with chronic cholecystitis without obstruction Status: Acute Assessment and Plan: -postop day 5 open cholecystectomy with intraoperative cholangiogram by Dr. Lacey -pain control: P.r.n. Tylenol, [place], morphine -antiemetic Zofran -Perioperative antibiotics Ancef -will trend leukocytosis -ERCP 07/19 with small 4 mm stone extracted -liver enzymes trending appropriately back to baseline (4) Biliary acute pancreatitis without necrosis or infection: Code(s): K85.10 - Biliary acute pancreatitis without necrosis or infection Status: Resolved Assessment and Plan: Patient's original diagnosis. (5) TOMER (acute kidney injury): Code(s): N17.9 - Acute kidney failure, unspecified Status: Inactive Assessment and Plan: -creatinine elevated 1.3, likely prerenal in, continue to monitor. 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 (6) Essential hypertension: Code(s): I10 - Essential (primary) hypertension Status: Chronic Assessment and Plan: Continue losartan (7) Type 2 diabetes mellitus: Code(s): E11.9 - Type 2 diabetes mellitus without complications Status: Chronic Assessment and Plan: Insulin Lispro sliding scale, Accu-checks qAcHS Hold metformin Initiate hypoglycemic precautions HgbA1c 6.2 Plan Continues to recover well post-operatively Liver enzymes normalized Awaiting discharge recommendations from surgery DS: Summary Hospital Course Hospital Course: Lana Martinez is a 58 year old female with past medical history type 2 diabetes, essential hypertension, hyperlipidemia who presents on 07/14/2023 for cholecystitis.? Patient was hospitalized 07/02/2023-07/06 with acute cholecystitis with gallstone, acute cholangitis, acute pancreatitis.? She was treated with IV Zosyn and discharged home on Augmentin.? She returned on 07/14/2023 for laparoscopic cholecystectomy which transition to open cholecystectomy with intraoperative cholangiogram by Dr. Lacey due to intra-abdominal bleed.? Patient is currently NPO for ERCP later today with Dr. Dickey.? Hospitalist service consulted for medical management of chronic conditions.? Patient has not had any issues with her diabetes or cholesterol.? She follows routinely with her PCP.? Patient is otherwise fairly active and lives with .? Patient has fever, chills, nausea vomiting or diarrhea.? She endorses abdominal pain. 07/20:? Mrs. Martinez is doing well today.? She is tolerating a diet, having bowel movements, and denies nausea or vomiting.? Her abdominal pain is well controlled with her current p.r.n. regimen and she mostly notes incisional tenderness and pain with with cough and deep breathing.? Her liver enzymes have trended to normal and her vital signs are stable.? She is anxious to discharge home today.? Will defer to surgery on disposition readiness. Status at Discharge Cognitive/behavioral status a
[2023-07-20 16:53] LABS: Glucose Point of Care 155 mg/dl (65-105)
== END 2023-07-20 15:10 | disposition home or self-care (01) | DRG 414 ==
LOC: ANH2MED 20:05
PROVIDERS: Anesthesiology; Internal Medicine Critical Care Medicine; Internal Medicine Gastroenterology; Student in an Organized Health Care Education/Training Program; Admitting Provider Surgery; PCP Emergency Medicine; Visit Provider Nurse Practitioner Acute Care
PROC: 0FT44ZZ Resection of Gallbladder, Percutaneous Endoscopic Approach (ICD-10-PCS; CPT 47562; principal; 2023-07-14 14:15)
PROC: 0FC98ZZ Extirpation of Matter from Common Bile Duct, Via Natural or Artificial Opening Endoscopic (ICD-10-PCS; CPT 43260; principal; 2023-07-19 09:00)
DX: K80.64 Calculus of gallbladder and bile duct with chronic cholecystitis without obstruction (principal); K85.10 Biliary acute pancreatitis without necrosis or infection; K91.61 Intraoperative hemorrhage and hematoma of a digestive system organ or structure complicating a digestive system procedure; D62 Acute posthemorrhagic anemia; N17.9 Acute kidney failure, unspecified; Y81.3 Surgical instruments, materials and general- and plastic-surgery devices (including sutures) associated with adverse incidents; E11.22 Type 2 diabetes mellitus with diabetic chronic kidney disease; N18.31 Chronic kidney disease, stage 3a; E78.5 Hyperlipidemia, unspecified; I10 Essential (primary) hypertension; E55.9 Vitamin D deficiency, unspecified; E66.9 Obesity, unspecified; G47.33 Obstructive sleep apnea (adult) (pediatric); Z68.36 Body mass index [BMI] 36.0-36.9, adult; Z87.891 Personal history of nicotine dependence; Z79.84 Long term (current) use of oral hypoglycemic drugs; Z53.31 Laparoscopic surgical procedure converted to open procedure
CPT/HCPCS: 36415; 36430; 74300; 74329; 80053; 80076; 82150; 82948; 83036; 83690; 85014; 85018; 85025; 85027; 86850; 86900; 86901; 86923; 88304; A9270; C1713; J0330; J0690; J1100; J1170; J1815; J1885; J2250; J2270; J2405; J2704; J3010; J7030; J7120; P9016; Q9966

== ENCOUNTER 2023-07-29 13:11 | Outpatient (CLI) | payer OTHER, SELFPAY ==
[2023-07-29 14:01] LABS: Basophils Absolute Auto 0.1 K/mm3 (0.0-0.1); Basophils Percent Auto 1.1 % (0.2-1.2); Eosinophils Absolute Auto 0.1 K/mm3 (0-0.3); Eosinophils Percent Auto 1.6 % (0-4.4); Hematocrit 33.2 % (37.0-47.0); Hemoglobin 10.3 g/dL (12.0-15.0); Immature Granulocyte Absolute 0.13 K/mm3 (0.00-0.031); Immature Granulocyte Percent A 1.5 % (0-0.5); Lymphocytes Absolute Auto 1.96 K/mm3 (0.9-3.2); Mean Corpuscular Hemoglobin 29.9 pg (26-34); Mean Corpuscular Volume 96.2 fl (80-100); Mean Platelet Volume 8.4 fl (7.4-10.4); Monocytes Absolute Auto 0.6 K/mm3 (0.1-0.6); Monocytes Percent Auto 7.5 % (2.6-8.5); Neutrophils Absolute Auto 5.6 K/mm3 (1.3-6.7); Neutrophils Percent Auto 65.3 % (45.5-73.1); Platelet Count Result 503 k/mm3 (150-375); Red Blood Count 3.45 M/mm3 (4.2-5.4); Red Cell Distribution Width 14.2 % (11.5-14.5); White Blood Count 8.5 K/mm3 (4.5-10.0)
== END 2023-07-29 13:12 | disposition home or self-care (01) ==
PROVIDERS: PCP Emergency Medicine; Visit Provider Surgery
DX: K80.44 Calculus of bile duct with chronic cholecystitis without obstruction (principal)
CPT/HCPCS: 36415; 85025

== ENCOUNTER 2023-08-06 11:39 | Emergency (ER) | payer OTHER, SELFPAY ==
[2023-08-06 11:50] VITALS: BP 135/80; PULSE 87; RESP 16; TEMP 36.3; O2SAT 99
--- NOTE | 2023-08-06 11:54 | ED.EXTPRO ---
HPI - Extremity Problem General Chief complaint: Extremity Problem,Nontraumatic Stated complaint: Right Toe Pain Time Seen by Provider: 08/06/23 11:55 Source: patient Mode of arrival: ambulatory Limitations: no limitations History of Present Illness HPI Narrative: Mamta is a 58-year-old female patient presenting to the clinic today with complaints of right great toe pain times 2-3 days. She reports no known fever or chills. No known injury. States that it is so painful that she is unable to wear shoes and allow blankets to touch it. Rates her pain a 9/10 when touching. Related Data Home Medications Medication Instructions Recorded Confirmed ergocalciferol (vitamin D2) 1,250 1,250 mcg PO DAILY 08/05/20 08/06/23 mcg (50,000 unit) capsule (Vitamin D2) glimepiride 1 mg tablet 1 mg PO DAILY 08/05/20 08/06/23 losartan 25 mg tablet 25 mg PO DAILY 08/05/20 08/06/23 metformin 500 mg tablet 500 mg PO BID 08/05/20 08/06/23 rosuvastatin 5 mg tablet 5 mg PO DAILY 08/05/20 08/06/23 aspirin 81 mg chewable tablet 81 mg PO DAILY 03/10/21 08/06/23 Allergies Allergy/AdvReac Type Severity Reaction Status Date / Time No Known Allergies Allergy Verified 08/06/23 11:49 Review of Systems Review of Systems: Pertinent positives per HPI. Patient denies any fever, chills, rash, headache, visual changes, dizziness, cough, runny nose, sore throat, shortness of breath, chest pain, palpitations, nausea, vomiting, diarrhea, constipation, abdominal pain, or any urinary issues. [facility] Past Medical History Medical History Diabetes Diastasis of rectus abdominis High blood pressure High cholesterol [place] (obstructive sleep apnea) Surgical History Surgical History History of x2 History of eye surgery x2 History of tubal ligation x2 Hx laparoscopic cholecystectomy o 07/14/23 DAPHNE Family History Family History Mother Diabetes mellitus Grandparent Diabetes mellitus Social History Social History Smoking packs per day: 1.5 Smoking cigarettes per day: 30.0 Years smoked: 22 Smoking pack-years: 33.00 Smoking status: Former smoker Second hand tobacco smoke exposure: Yes Smoking end date: 11/14/95 Alcohol intake: former Substance use: never Substance use type: does not use Lack of Transportation: No Lack of Food: Never True Current Housing: I Have Housing Concerned About Future Housing: No Difficulty Paying Gas/Electric Bills: No Difficulty Paying for Meds: No Currently Unemployed: No Education: High School Diploma/GED Difficulty w/ Childcare or Family Care: No Living arrangements: with family Occupation/Education: occupation 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 There is no relevant family history pertinent to the patient complaint. Exam Narrative: General: Well-developed, well nourished, in no apparent distress Head: Normocephalic, atraumatic. Cardio: Regular rate and rhythm, s1 and s2 normal, no murmur appreciated. Resp: Clear to auscultation bilaterally, no rhonchi, rales, wheezing or rubs. Musculoskeletal: No deformity, mild redness with swelling to the proximal right great toe joint, tender to palpation, pain with flexion and extension of the right great toe, all other toes have grossly normal range of motion, muscle strength strong and equal, peripheral pulse strong, no edema, no cyanosis, normal gait and station Course Course Emergency Course: Portions of this record may have been created wi
== END 2023-08-06 12:03 | disposition home or self-care (01) ==
PROVIDERS: Emergency Provider Nurse Practitioner Family; PCP Emergency Medicine
DX: M25.474 Effusion, right foot (principal); M79.674 Pain in right toe(s); Z87.891 Personal history of nicotine dependence; E11.9 Type 2 diabetes mellitus without complications; Z79.84 Long term (current) use of oral hypoglycemic drugs; I10 Essential (primary) hypertension; E78.00 Pure hypercholesterolemia, unspecified; Z79.82 Long term (current) use of aspirin
CPT/HCPCS: 99213; G0463

== ENCOUNTER → 2023-09-06 08:29 | Outpatient (CLI) | payer OTHER, SELFPAY ==
--- NOTE | ~2023-09-06 | MMUS_ITS ---
EXAMINATION: MM diagnostic geri RT w berenice, US breast RT limited HISTORY: Mammographic mass in middle third of lower outer right breast was reported on 11/27/2022 scre ening mammogram TECHNIQUE: ML, MLO and CC 3-D tomosynthesis images of the right breast were performed and synthetic 2 -D images were generated. CAD analysis was submitted and interpreted. High resolution targeted approx imately 3:00 right breast ultrasound was performed. COMPARISON: 11/27/2019 bilateral screening mammogram BREAST PARENCHYMAL COMPOSITION: There are scattered areas of fibroglandular density. FINDINGS: MAMMOGRAPHIC FINDINGS: There is a biopsy marker; history of prior benign right breast biopsies. Scattered solitary and grouped benign microcalcifications are noted. No malignant calcification is ev ident. Again noted is a circumscribed low-density approximately 5 x 12 mm opacity in the mid inner right franny ast at approximately 3:00 position. This appears unchanged since reported on 11/27/2022 screening mamm ogram. ULTRASOUND: Corresponding to the mammographic finding in the mid inner right breast is an oval 3.6 x 8.3 mm hypoe choic lesion without internal vascularity or posterior shadowing, benign in appearance mammographical ly and sonographically.. IMPRESSION: 1. Benign findings; no mammographic evidence of malignancy 2. Routine mammographic screening is recommended. BI-RADS Category 2: Benign finding(s). Reviewed, dictated and finalized at location A. IMPRESSION: 1. Benign findings; no mammographic evidence of malignancy 2. Routine mammographic screening is recommended. BI-RADS Category 2: Benign finding(s).
== END ==
PROVIDERS: PCP Emergency Medicine; Visit Provider Emergency Medicine
DX: R92.2 Inconclusive mammogram (principal); R92.8 Other abnormal and inconclusive findings on diagnostic imaging of breast
CPT/HCPCS: 76642; 77061; 77065; G0279

== ENCOUNTER 2023-11-30 15:15 | Emergency (ER) | payer OTHER, SELFPAY ==
--- NOTE | 2023-11-30 15:18 | ED.URI ---
HPI - URI/Sore Throat General Chief Complaint: Upper Respiratory Infection Stated Complaint: SINUS/CHEST CONGESTION/COUGH Time Seen by Provider: 11/30/23 15:18 Source: patient and RN notes reviewed History of Present Illness HPI Narrative: Patient is a 58-year-old female presents to urgent care with complaints of sinus congestion, chest congestion and cough. Patient states that it will improve slightly and then returns. Patient states she has been having the back and forth for approximately 3 weeks. Patient denies any fevers, shortness of breath or chest discomfort. Denies of sore throat. Patient does take a daily antihistamine however has not taken anything extra for her symptoms. No other acute complaints. No acute distress noted. Patient aware of the plan of care. Some parts of this dictation were generated by voice recognition software and may contain typographical and/or grammatical inaccuracies. Related Data Home Medications Medication Instructions Recorded Confirmed ergocalciferol (vitamin D2) 1,250 1,250 mcg PO DAILY 08/05/20 11/30/23 mcg (50,000 unit) capsule (Vitamin D2) glimepiride 1 mg tablet 1 mg PO DAILY 08/05/20 11/30/23 losartan 25 mg tablet 25 mg PO DAILY 08/05/20 11/30/23 metformin 500 mg tablet 500 mg PO BID 08/05/20 11/30/23 rosuvastatin 5 mg tablet 5 mg PO DAILY 08/05/20 11/30/23 aspirin 81 mg chewable tablet 81 mg PO DAILY 03/10/21 11/30/23 Allergies Allergy/AdvReac Type Severity Reaction Status Date / Time No Known Allergies Allergy Verified 11/30/23 15:22 Review of Systems Review of Systems: CONSTITUTIONAL: Denies fever, chills, or sweats. EYES: Denies visual changes, redness, or discharge. ENT: Reports rhinorrhea, sinus congestion intermittently and postnasal drainage CARDIOVASCULAR: Denies chest pain, palpitations, or edema. RESPIRATORY: Reports of cough without dyspnea GASTROINTESTINAL: Denies abdominal pain, nausea, vomiting, or diarrhea. GENITOURINARY: Denies dysuria or hematuria. SKIN: Denies rash or itching. MUSCULOSKELETAL: Denies back pain, joint pain, or myalgia. NEUROLOGIC: Denies headache, numbness, or weakness. All other systems reviewed are negative, except as documented in HPI. [facility] Past Medical History Medical History (Updated 11/30/23 @ 15:45 by TANNER Ludwig) Diabetes Diastasis of rectus abdominis High blood pressure High cholesterol HAWA (obstructive sleep apnea) Surgical History Surgical History (Updated 08/08/23 @ 08:25 by Angie Barreto MA) History of x2 History of cholecystectomy Attempted laparoscopic cholecystectomy converted to open cholecystectomy with intraoperative cholangiogram on 07/15/23 [facility] History of eye surgery x2 History of tubal ligation x2 Family History Family History Mother Diabetes mellitus Grandparent Diabetes mellitus Social History Social History Smoking packs per day: 1.5 Smoking cigarettes per day: 30.0 Years smoked: 22 Smoking pack-years: 33.00 Smoking status: Former smoker Second hand tobacco smoke exposure: Yes Smoking end date: 11/14/95 Alcohol intake: former Substance use: never Substance use type: does not use Lack of Transportation: No Lack of Food: Never True Current Housing: I Have Housing Concerned About Future Housing: No Difficulty Paying Gas/Electric Bills: No Difficulty Paying for Meds: No Currently Unemployed: No Education: High School Diploma/GED Difficulty w/ Childcare or Family Care: No Living arrangements: with family Occupation/Education: occupation 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
[2023-11-30 15:24] VITALS: BP 140/96; PULSE 87; RESP 16; TEMP 36.3; O2SAT 99
== END 2023-11-30 16:00 | disposition home or self-care (01) ==
PROVIDERS: Emergency Provider Nurse Practitioner Family; PCP Emergency Medicine
DX: J00 Acute nasopharyngitis [common cold] (principal); Z87.891 Personal history of nicotine dependence; E11.9 Type 2 diabetes mellitus without complications; Z79.84 Long term (current) use of oral hypoglycemic drugs; I10 Essential (primary) hypertension; E78.00 Pure hypercholesterolemia, unspecified; Z79.82 Long term (current) use of aspirin
CPT/HCPCS: 99213; G0463

== ENCOUNTER 2024-08-18 12:59 | Emergency (ER) | payer OTHER, SELFPAY ==
--- NOTE | 2024-08-18 13:59 | ED.SKABFB ---
HPI - Skin/Abscess/Foreign Bdy General Chief complaint: Skin/Abscess/Foreign Body Stated complaint: pos spider bite on rt forearm Time Seen by Provider: 08/18/24 14:52 Source: patient, RN notes reviewed and old records reviewed Mode of arrival: ambulatory Limitations: no limitations History of Present Illness HPI narrative: [age] year female to Express Care with complaint of spider bite to right dorsal forearm for approximately 5 days. Patient states that 6 days ago she was outside and around area with a lot of spiders present. Patient states that starting 5 days ago she noticed a red, raised bump to her right dorsal forearm that was itching. Patient states that area has become progressively worse. Patient denies any drainage, fever, chills, body aches, allergies, pertinent medical history. Patient resting comfortably in exam room in no acute distress. Related Data Home Medications Medication Instructions Recorded Confirmed ergocalciferol (vitamin D2) 1,250 1,250 mcg PO DAILY 08/05/20 08/18/24 mcg (50,000 unit) capsule (Vitamin D2) glimepiride 1 mg tablet 1 mg PO DAILY 08/05/20 08/18/24 losartan 25 mg tablet 25 mg PO DAILY 08/05/20 08/18/24 metformin 500 mg tablet 500 mg PO BID 08/05/20 08/18/24 rosuvastatin 5 mg tablet 5 mg PO DAILY 08/05/20 08/18/24 aspirin 81 mg chewable tablet 81 mg PO DAILY 03/10/21 08/18/24 Allergies Allergy/AdvReac Type Severity Reaction Status Date / Time No Known Allergies Allergy Verified 08/18/24 15:08 Review of Systems Review of Systems: All systems reviewed & are unremarkable except as noted in HPI and below Constitutional: Constitutional: Reports no additional constitutional complaints Eyes: Eyes: Reports no additional eye complaints ENT: Reports system reviewed and no additional complaints, except as documented Cardiovascular: Cardiovascular: Reports no additional cardiovascular complaints, Denies chest pain and Denies dyspnea Respiratory: Respiratory: Reports no additional respiratory complaints, Denies cough and Denies dyspnea Musculoskeletal: Musculoskeletal: Reports no additional musculoskeletal complaints Integumentary/Breasts: Skin/Breast: Reports as per HPI and Reports wounds Comments: Right forearm Neurologic: Reports system reviewed and no additional complaints, except as documented Psychiatric: Psychiatric: Reports no additional psychiatric complaints PMFSH Past Medical History Medical History Diabetes Diastasis of rectus abdominis High blood pressure High cholesterol HAWA (obstructive sleep apnea) Surgical History Surgical History History of x2 History of cholecystectomy Attempted laparoscopic cholecystectomy converted to open cholecystectomy with intraoperative cholangiogram on 07/15/23 [facility] History of eye surgery x2 History of tubal ligation x2 Family History Family History Mother Diabetes mellitus Grandparent Diabetes mellitus Social History Social History Smoking packs per day: 1.5 Smoking cigarettes per day: 30.0 Years smoked: 22 Smoking pack-years: 33.00 Smoking status: Former smoker Second hand tobacco smoke exposure: Yes Smoking end date: 11/14/95 Alcohol intake: former Substance use: never Substance use type: does not use Lack of Transportation: No Lack of Food: Never True Current Housing: I Have Housing Concerned About Future Housing: No Difficulty Paying Gas/Electric Bills: No Difficulty Paying for Meds: No Currently Unemployed: No Education: High School Diploma/GED Difficulty w/ Childcare or Family Care: No Living arrangements: with family Occupation/Education: occupation 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
[2024-08-18 14:18] VITALS: BP 146/85; PULSE 79; RESP 16; TEMP 36.5; O2SAT 99
== END 2024-08-18 15:14 | disposition home or self-care (01) ==
PROVIDERS: Emergency Provider Nurse Practitioner Family; PCP Emergency Medicine
DX: S50.861A Insect bite (nonvenomous) of right forearm, initial encounter (principal); W57.XXXA Bitten or stung by nonvenomous insect and other nonvenomous arthropods, initial encounter; Z87.891 Personal history of nicotine dependence; E11.9 Type 2 diabetes mellitus without complications; Z79.84 Long term (current) use of oral hypoglycemic drugs; I10 Essential (primary) hypertension; E78.00 Pure hypercholesterolemia, unspecified
CPT/HCPCS: 99213; G0463